=== PATIENT | male | born 1955 | race Caucasian/White ===

== ENCOUNTER 2018-10-16 16:54 | Inpatient (IN) | payer MEDICAID ==
[~2018-10-16] VITALS: Ht 175.3 cm; Wt 109.7 kg
[2018-10-16 17:30] VITALS: BP 102/45
[2018-10-16 18:00] VITALS: BP 91/55
--- NOTE | 2018-10-16 18:50 | NUR ---
USHA STOP TIME 1849
--- NOTE | 2018-10-16 18:59 | NUR ---
ARRIVED ON FLOOR. ORIENTED TO ROOM AND CALL LIGHT. IV INFUSING PER ORDER TO RIGHT HAND. ASSESSMENT AND HISTORY PER FLOW SHEET.
--- NOTE | 2018-10-16 19:17 | NUR ---
PER [facility] ER RECORDS LEVAQUIN GIVEN THERE. DOCUMENTED OUR DOSE NOT GIVEN AND TO START TOMORROW.
[2018-10-16 19:45] VITALS: BP 102/72
[2018-10-16 23:55] VITALS: BP 109/65
[2018-10-17 00:01] VITALS: BP 102/72; BMI 29.6
[2018-10-17 03:45] VITALS: BP 107/66
[2018-10-17 06:11] LABS: ALBUMIN 2.9 g/dL (3.4-5.0); BILIRUBIN - TOTAL 1.83 mg/dL (0.2-1.3); CALCIUM 7.4 mg/dL (8.5-10.1); CARBON DIOXIDE 22.8 mmol/L (21.0-32.0); CREATININE - SERUM 2.8 mg/dL (0.6-1.3); POTASSIUM - SERUM 4.8 mmol/L (3.5-5.1); PROTEIN - SERUM 5.1 g/dL (6.4-8.2)
[2018-10-17 06:16] LABS: HEMATOCRIT 24.3 % (42.0-54.0); HEMOGLOBIN 8.4 g/dL (13.5-17.5); MCH 33.7 pg (26.0-34.0); MCHC 34.6 g/dL (31.0-37.0); MCV 97.6 fL (80.0-100.0); MEAN PLATELET VOLUME 10.1 fL (7.4-10.4); RBC 2.49 10x6/uL (4.20-6.10); RDW 16.2 % (11.5-14.5); WBC 13.5 10x3/uL (4.8-10.8)
[2018-10-17 06:21] LABS: PLATELET COUNT 30 10x3/uL (130-400)
--- NOTE | 2018-10-17 06:45 | NUR ---
DR WYATT PAGED ABOUT CRITICAL PLT
--- NOTE | 2018-10-17 06:48 | NUR ---
SPOKE WTIH DR WYATT AND NEW ORDERS RECEIVED FOR LABS
[2018-10-17 07:45] LABS: LYMPHOCYTES 90 % (15-50); MONOCYTES 4 % (2-11); NEUTROPHILS 5 % (40-80); PLATELET ESTIMATE DECREASED
[2018-10-17 08:01] LABS: INR 1.64 (0.85-1.17); PROTIME 18.9 SECONDS (11.6-15.0)
[2018-10-17 08:02] LABS: APTT 41.7 SECONDS (22.8-39.4)
[2018-10-17 08:42] VITALS: BP 123/73
--- NOTE | 2018-10-17 10:31 | NUR ---
PT RESTING QUIETLY IN BED. EYES CLOSED AND LIGHTS OFF. RESPIRATIONS EVEN AND UNLABORED. NO COMPLAINTS VOICED AT THIS TIME. ONE EPSIODE OF NOSE BLEED THIS AM. DR WYATT NOTIFED, AND MONITORING NEED FOR PLATLETS. CALL LIGHT AND BEDSIDE TABLE IN REACH. BED IN LOWEST POSTION. ROOM FREE OF CLUTTER. NO OTHER NEEDS VOICED AT THIS TIME. WILL CONTINUE TO MONITOR.
[2018-10-17 11:11] LABS: % SATURATION 18 % (15-55); IRON 44 ug/dl (35-150); TOTAL IRON BIND CAPACITY 239 ug/dl (260-445); UNSAT IRON BIND CAPACITY 195 ug/dl (150-375)
[2018-10-17 12:15] LABS: APPEARANCE HAZY (CLEAR); BILIRUBIN NEGATIVE (NEGATIVE); COLOR YELLOW (YELLOW); GLUCOSE NEGATIVE (NEGATIVE); KETONE NEGATIVE (NEGATIVE); NITRITE NEGATIVE (NEGATIVE); PROTEIN NEGATIVE (NEGATIVE); SPECIFIC GRAVITY 1.015 (1.005-1.020); UROBILINOGEN NORMAL (NORMAL)
[2018-10-17 12:17] LABS: BACTERIA MODERATE /hpf (NONE SEEN); EPITHELIAL CELLS RARE /hpf (0-5); MUCUS <1+ /lpf (NONE SEEN); RED CELLS - URINE OCC /hpf (0-5)
--- NOTE | 2018-10-17 13:16 | NUR ---
LYING IN BED,WITHOUT DISTRESS.ISOLATION MAINTAINED
[2018-10-17 13:27] VITALS: BP 99/64
[2018-10-17 14:26] VITALS: BMI 29.5
[2018-10-17 18:36] VITALS: BP 133/68
[2018-10-17 21:12] VITALS: BP 106/66
[2018-10-18 01:43] VITALS: BP 98/59
[2018-10-18 05:02] LABS: BASOPHILS 0 % (0-2); EOSINOPHILS 0 % (0-7); HEMATOCRIT 20.3 % (42.0-54.0); LYMPHOCYTES 95.3 % (15-50); MCH 33.7 pg (26.0-34.0); MCHC 34.5 g/dL (31.0-37.0); MCV 97.6 fL (80.0-100.0); MONOCYTES 1.4 % (2-11); NEUTROPHILS 3.3 % (40-80); RBC 2.08 10x6/uL (4.20-6.10); RDW 15.8 % (11.5-14.5)
[2018-10-18 05:31] VITALS: BP 98/57
[2018-10-18 05:32] LABS: WBC 4.2 10x3/uL (4.8-10.8)
[2018-10-18 05:33] LABS: PLATELET COUNT 24 10x3/uL (130-400)
[2018-10-18 05:48] LABS: ALBUMIN 2.3 g/dL (3.4-5.0); ANION GAP 14.7 mmol/L (8-16); BILIRUBIN - TOTAL 1.4 mg/dL (0.2-1.3); CALCIUM 7.1 mg/dL (8.5-10.1); CARBON DIOXIDE 21.5 mmol/L (21.0-32.0); POTASSIUM - SERUM 4.2 mmol/L (3.5-5.1); PROTEIN - SERUM 4.5 g/dL (6.4-8.2); VANCOMYCIN - RANDOM 5.5 ug/mL (10.0-20.0)
[2018-10-18 05:50] LABS: CREATININE - SERUM 1.5 mg/dL (0.6-1.3)
--- NOTE | 2018-10-18 06:00 | NUR ---
LAB CALLED WITH CRITICAL HGB 7, HCT 20.3, PLT 24. NOTIFIED DR WYATT. ORDERS FOR 2 UNITS PRBC, 1 UNIT OF PLT, AND 500MG TYLENOL PREMED. ORDERED TYPE AND SCREEN. WILL CONT TO MONITOR
[2018-10-18 08:15] LABS: IMMUNOGLOBULIN A 18 mg/dL (61-437); IMMUNOGLOBULIN G 291 mg/dL (700-1600); IMMUNOGLOBULIN M 9 mg/dL (20-172)
[2018-10-18 08:30] VITALS: BP 96/55
[2018-10-18 10:19] LABS: FOLATE (FOLIC ACID) - SERUM 5.2 ng/mL (>3.0)
--- NOTE | 2018-10-18 16:00 | NUR ---
PT RESTING. WATER GIVEN PER REQUEST. AFEBRILE AT THIS TIME.
--- NOTE | 2018-10-18 16:17 | NUR ---
I have reviewed this patient and I concur with the Shift Assessment completed by the Licensed Practical Nurse today this shift.
--- NOTE | 2018-10-18 20:00 | NUR ---
PT LYING IN BED WITHOUT DISTRESS. ALERT AND ORIENTED. SWELLING TO RIGHT WRIST. +1 EDEMA TO RIGHT FOOT AND GENERALIZED TO LEFT FOOT. IV RIGHT HAND WITHOUT REDNESS, DRESSING CDI. PT SIGNED CONSENTS FOR BM BIOPSY IN AM. DENIES OTHER NEEDS AT THIS TIME. CL IN REACH, WILL CONT TO MONITOR
[2018-10-18 21:37] VITALS: BP 108/63
[2018-10-19] VITALS (13 sets, daily range): BP systolic 92–117; BP diastolic 51–69
[2018-10-19 06:36] LABS: BASOPHILS 0 % (0-2); EOSINOPHILS 0 % (0-7); HEMATOCRIT 22.9 % (42.0-54.0); HEMOGLOBIN 8.1 g/dL (13.5-17.5); IMMATURE GRANULOCYTES 0.8 % (0-5); LYMPHOCYTES 95.2 % (15-50); MCH 33.3 pg (26.0-34.0); MCHC 35.4 g/dL (31.0-37.0); MEAN PLATELET VOLUME 10.7 fL (7.4-10.4); MONOCYTES 1.4 % (2-11); NEUTROPHILS 2.6 % (40-80); RBC 2.43 10x6/uL (4.20-6.10); RDW 18.8 % (11.5-14.5)
[2018-10-19 06:47] LABS: APTT 38.8 SECONDS (22.8-39.4)
[2018-10-19 06:54] LABS: INR 1.16 (0.85-1.17); PROTIME 14.3 SECONDS (11.6-15.0)
[2018-10-19 06:57] LABS: ALKALINE PHOSPHATASE 34 U/L (46-116); ALT (SGPT) 23 U/L (10-68); BILIRUBIN - TOTAL 1.75 mg/dL (0.2-1.3); CALC OSMOLALITY 272 mosm/kg (275-300); CALCIUM 7.8 mg/dL (8.5-10.1); CARBON DIOXIDE 24.6 mmol/L (21.0-32.0); CHLORIDE - SERUM 101 mmol/L (98-107); GLUCOSE 113 mg/dL (74-106); POTASSIUM - SERUM 3.8 mmol/L (3.5-5.1); PROTEIN - SERUM 5.1 g/dL (6.4-8.2); SODIUM 133 mmol/L (136-145); UREA NITROGEN 28 mg/dL (7-18); eGFR NON AFRICAN AMERICAN 80 mL/min (90-120)
[2018-10-19 07:14] LABS: MCV 94.2 fL (80.0-100.0)
[2018-10-19 07:15] LABS: PLATELET COUNT 32 10x3/uL (130-400)
[2018-10-19 13:13] LABS: IMMUNOGLOBULIN D <1.34 mg/dL (<14.11)
[2018-10-19 15:12] LABS: BETA-2 MICROGLOBULIN 6.2 mg/L (0.6-2.4)
--- NOTE | 2018-10-19 16:23 | NUR ---
GOT PATIENT ON TABLE FOR MRI OF WRIST. STARTED EXAM AND THE PATIENT STATED HE WANTED TO STOP AND NOT DO THE TEST. PT WAS TAKEN BACK TO HIS ROOM AND HIS NURSE WAS NOTIFIED.
--- NOTE | 2018-10-19 20:11 | NUR ---
RESTING QUIELTY WITH NO DISTRESS NOTED. RESP EVEN AND UNALBORED.IV INFUSING TO RFA WITHOUT REDNESS OR EDEMA NOTED.DRSG TO LEFT SCARAL AREA WITHOUT DRAINAGE NOTED. CL IN REACH
--- NOTE | 2018-10-19 23:31 | NUR ---
I have reviewed this patient and I concur with the Shift Assessment completed by the Licensed Practical Nurse today this shift.
[2018-10-20 05:02] VITALS: BP 115/64
[2018-10-20 05:33] LABS: BASOPHILS 0 % (0-2); EOSINOPHILS 0.2 % (0-7); HEMATOCRIT 22.5 % (42.0-54.0); HEMOGLOBIN 7.7 g/dL (13.5-17.5); IMMATURE GRANULOCYTES 1.5 % (0-5); MCHC 34.2 g/dL (31.0-37.0); MEAN PLATELET VOLUME 10.3 fL (7.4-10.4); MONOCYTES 0.8 % (2-11); NEUTROPHILS 2.5 % (40-80); RBC 2.33 10x6/uL (4.20-6.10); WBC 4.8 10x3/uL (4.8-10.8)
[2018-10-20 05:44] LABS: MCV 96.6 fL (80.0-100.0)
[2018-10-20 05:47] LABS: PLATELET COUNT 31 10x3/uL (130-400)
[2018-10-20 05:55] LABS: ALBUMIN 1.9 g/dL (3.4-5.0); ALKALINE PHOSPHATASE 44 U/L (46-116); ALT (SGPT) 21 U/L (10-68); BILIRUBIN - TOTAL 2.41 mg/dL (0.2-1.3); CALC OSMOLALITY 272 mosm/kg (275-300); CALCIUM 7.7 mg/dL (8.5-10.1); CARBON DIOXIDE 23.3 mmol/L (21.0-32.0); CHLORIDE - SERUM 102 mmol/L (98-107); GLUCOSE 105 mg/dL (74-106); PROTEIN - SERUM 5.2 g/dL (6.4-8.2); SODIUM 134 mmol/L (136-145); UREA NITROGEN 26 mg/dL (7-18); eGFR NON AFRICAN AMERICAN 80 mL/min (90-120)
--- NOTE | 2018-10-20 07:46 | NUR ---
PATIENT IN BED WITH EYES CLOSED RESTING QUIETLY. IV INTACT. NO COMPLAINTS OR SIGNS OF DISTRESS. CALL LIGHT WITHIN REACH.
[2018-10-20 09:30] VITALS: BP 100/64
--- NOTE | 2018-10-20 11:00 | NUR ---
PATIENT REFUSED MRI AT THIS TIME. BACK TO ROOM. BACK TO BED. CALL LIGHT WITHIN REACH.
--- NOTE | 2018-10-20 11:06 | NUR ---
ATTEMPTED MRI AGAIN TODAY. PT WAS PREMEDICATED WITH VALIUM. PT QUIT EXAM AFTER FIRST SEQUENCE. RETURNED TO ROOM AND INFORMED SUSAN HIS RN FOR THE DAY. WE ALSO CALLED DR GAUTHIER OFFICE AND LEFT A MESSAGE FOR HIM WITH SEPTEMBER. EXAM CANCELLED.
--- NOTE | 2018-10-20 11:18 | MORECARE ---
CASE MANAGEMENT DISCHARGE SUMMARY PATIENT: PHIL DICKERSON UNIT: [id number] ADM DATE: 10/16/18 AGE: 63 : 54 SEX: M ROOM/BED: D.2228 AUTHOR: JEWELS ESTRADA PHYSICIAN: REFERRING PHYSICIAN: DOMENICA BRYANT MD DATE OF SERVICE: 10/20/18 Discharge Plan Patient Name: PHIL DICKERSON [facility] [facility] 1955 Planned Disposition: Home Anticipated Discharge Date: Discharge Date: Expected LOS: Initial Reviewer: [email or web address] Initial Review Date: 10/20/2018 Generated: 10/20/18 12:18 pm Patient Name: PHIL DICKERSON Page 42158 at 1118 All edits/amendments must be made on the electronic document DICTATION DATE: 10/20/18 111 BOOT TURNER: JAMI 10/20/18 1118 RPT#: [id number] DC DATE: STATUS: ADM IN [facility] [address] [place] [address] END OF REPORT
--- NOTE | 2018-10-20 11:26 | MORECARE ---
CASE MANAGEMENT DISCHARGE SUMMARY PATIENT: PHIL DICKERSON UNIT: [id number] ADM DATE: 10/16/18 AGE: 63 : 54 SEX: M ROOM/BED: D.2228 AUTHOR: JEWELS ESTRADA PHYSICIAN: REFERRING PHYSICIAN: DOMENICA BRYANT MD DATE OF SERVICE: 10/20/18 Discharge Plan Patient Name: PHIL DICKERSON Facility: [facility]:[place] : 1955 Planned Disposition: Home Anticipated Discharge Date: Discharge Date: Expected LOS: Initial Reviewer: [email or web address] Initial Review Date: 10/20/2018 Generated: 10/20/18 12:26 pm Comments DCP- Discharge Planning Updated by [email or web address]: Iona Moses on 10/20/18 10:[address] Patient Name: PHIL DICKERSON Admission Status: ER Accout number: [id number] Admission Date: 10-16-2018 : 1955 Admission Diagnosis:WEAKNESS Attending: DOMENICA BRYANT Current LOS: 4 Anticipated DC Date: Planned Disposition: Home Primary Insurance: MEDICAID [place] Discharge Planning Comments: CM met with patient to complete initial dc planning assessment. CM educated patient on the CM role and verbal consent given by patient to complete assessment. Patient lives at home alone in a camping trailer, address on face sheet verified. At discharge patient plans to return and feels this is a safe discharge. He states his friend Al and Cintia live on the same property and will check on him and take him home at discharge. CM discussed availability of home health, rehab services, and medical equipment. Patient denied known discharge needs at this time. I encouraged home health and he declines at this time. He also has a son that lives in [place], he states that he does not want to stay with his son. He declines to give me his son's number and states that Cintia can call him if needed. CM will continue to follow and will assist as needed with dc plans/needs. Back Wedger: Iona Moses DCPIA - Discharge Planning Initial Assessment Updated by [email or web address]: Iona Moses on 10/20/18 11:19 am * Is the patient Alert and Oriented? Yes * How many steps to enter\exit or inside your home? 08/12 * PCP Dr. Keagan Wesley * [facility] in [place] * Preadmission Environment Home Alone * ADLs Independent * Equipment Walker * List name and contact numbers for known caregivers / representatives who currently or will assist patient after discharge: Al Jah green - [phone] * Verbal permission to speak to the caregivers and representatives has been obtained from the patient. Yes * Community resources currently utilized None * Additional services required to return to the preadmission environment? Yes * Can the patient safely return to the preadmission environment? Yes * Has this patient been hospitalized within the prior 30 days at any hospital? No Last DP export: 10/20/18 10:18 am Patient Name: PHIL DICKERSON Page 10010 at 1126 All edits/amendments must be made on the electronic document DICTATION DATE: 10/20/181124 LABORATORY TECHNOLOGIST: JAMI 10/20/18 112 RPT#: [id number] DC DATE: STATUS: ADM IN [facility] [address] [place] [address] END OF REPORT
--- NOTE | 2018-10-20 12:32 | NUR ---
NUTRITION F/U CHART REVIEWED, PT VISIT. REPORTS GOOD INTAKE BREAKFAST. READY FOR LUNCH. WILL CONTINUE TO PROVIDE NEUTROPENIC DIET, MONITOR INTAKE. RD FOLLOWING
[2018-10-20 12:45] VITALS: BP 104/63
[2018-10-20 15:24] LABS: HEMATOCRIT 23.1 % (42.0-54.0); HEMOGLOBIN 7.8 g/dL (13.5-17.5)
--- NOTE | 2018-10-20 18:50 | NUR ---
PATIENT IN BED WITH IV INTACT. NO COMPLAINTS OR SIGNS OF DISTRESS. CALL LIGHT WITHIN REACH.
--- NOTE | 2018-10-20 20:01 | NUR ---
LYING QUIELTY WITH NO DISTRESS NOTED. NO COMPLAINTS VOICED.RESP UNLABORED. IV INFUSING TO RFA WIHTOUT REDNESS OR EDEMA NOTED. RLE WITH EDEMA NOTED. O2 @ 2L PER NC ON. CL IN REACH
[2018-10-20 20:02] VITALS: BP 122/57
[2018-10-21] VITALS (8 sets, daily range): BP systolic 98–121; BP diastolic 40–58
--- NOTE | 2018-10-21 00:25 | NUR ---
I have reviewed this patient and I concur with the Shift Assessment completed by the Licensed Practical Nurse today this shift.
[2018-10-21 06:18] LABS: BASOPHILS 0 % (0-2); EOSINOPHILS 0.2 % (0-7); HEMATOCRIT 21.5 % (42.0-54.0); IMMATURE GRANULOCYTES 0.5 % (0-5); MCH 32.9 pg (26.0-34.0); MCV 96.8 fL (80.0-100.0); MEAN PLATELET VOLUME 10.6 fL (7.4-10.4); MONOCYTES 0.7 % (2-11); NEUTROPHILS 2.6 % (40-80); RBC 2.22 10x6/uL (4.20-6.10); RDW 17.9 % (11.5-14.5)
[2018-10-21 06:49] LABS: ALBUMIN 1.7 g/dL (3.4-5.0); ALKALINE PHOSPHATASE 80 U/L (46-116); BILIRUBIN - TOTAL 3.16 mg/dL (0.2-1.3); CALC OSMOLALITY 272 mosm/kg (275-300); CALCIUM 7.2 mg/dL (8.5-10.1); CARBON DIOXIDE 25.8 mmol/L (21.0-32.0); CHLORIDE - SERUM 102 mmol/L (98-107); GLUCOSE 100 mg/dL (74-106); POTASSIUM - SERUM 3.7 mmol/L (3.5-5.1); PROTEIN - SERUM 4.1 g/dL (6.4-8.2); SODIUM 134 mmol/L (136-145); UREA NITROGEN 26 mg/dL (7-18); eGFR NON AFRICAN AMERICAN 80 mL/min (90-120)
[2018-10-21 06:53] LABS: ALT (SGPT) 38 U/L (10-68)
[2018-10-21 07:01] LABS: HEMOGLOBIN 7.3 g/dL (13.5-17.5); PLATELET COUNT 33 10x3/uL (130-400)
--- NOTE | 2018-10-21 09:28 | NUR ---
NOTIFIED DR. WYATT OF H&H 7.3 AND 21. NEW ORDERS RECIEVED. ALSO TAKEN OFF OF NEUTROPENIC PRECAUTIONS PER PHYSICIAN. WBC 6.0
--- NOTE | 2018-10-21 15:00 | NUR ---
NOTIFIED PATIENT BLOOD READY TO INFUSE.
--- NOTE | 2018-10-21 17:25 | NUR ---
PATIENT FIRST UNIT OF BLOOD STARTED AT THIS TIME. VS STABLE. NO COMPLAINTS OR SIGNS OF DISTRESS. DR. CARVALHO WANTS MRI REORDERED WITH PRESS MACHINE OPERATOR MEDS. PATIENT STATED HE STILL DOES NOT WANT THE MRI DONE.
--- NOTE | 2018-10-21 17:40 | NUR ---
PATIENT IN BED WITH IV INTACT. NO COMPLAINTS OR SIGNS OF DISTRESS. BLOOD INFUSING AND VS STABLE. TEMP 99.5. PATIENT STATED HE FEELS FINE. CALL LIGHT WITHIN REACH. WILL CONTINUE TO MONITOR.
[2018-10-22] VITALS: BP 112/59
[2018-10-22 04:00] VITALS: BP 93/45
[2018-10-22 05:52] LABS: BILIRUBIN - DIRECT 2.1 mg/dL (0.00-0.30)
[2018-10-22 05:53] LABS: ALBUMIN 1.5 g/dL (3.4-5.0); ANION GAP 12.8 mmol/L (8-16); BILIRUBIN - TOTAL 3.04 mg/dL (0.2-1.3); CALCIUM 7.3 mg/dL (8.5-10.1); CREATININE - SERUM 1.1 mg/dL (0.6-1.3); POTASSIUM - SERUM 3.8 mmol/L (3.5-5.1); PROTEIN - SERUM 4.6 g/dL (6.4-8.2)
[2018-10-22 05:59] LABS: BASOPHILS 0 % (0-2); EOSINOPHILS 0.1 % (0-7); HEMATOCRIT 23.8 % (42.0-54.0); MCH 31.3 pg (26.0-34.0); MCHC 33.6 g/dL (31.0-37.0); MONOCYTES 4.2 % (2-11); NEUTROPHILS 3.7 % (40-80); PLATELET COUNT 32 10x3/uL (130-400); RBC 2.56 10x6/uL (4.20-6.10); RDW 20.8 % (11.5-14.5); WBC 7.3 10x3/uL (4.8-10.8)
--- NOTE | 2018-10-22 07:30 | NUR ---
PT RESTING EYES CLOSED NO SIGNS OF DISTRESS NOTED, EASY RISE AND FALL OF CHEST WILL CONTINUE TO MONITOR CL IN REACH
[2018-10-22 07:40] LABS: PLATELET ESTIMATE DECREASED; PLATELET MORPHOLOGY NORMAL PLT MORPH
[2018-10-22 09:13] VITALS: BP 128/62
--- NOTE | 2018-10-22 13:58 | NUR ---
I have reviewed this patient and I concur with the Shift Assessment completed by the Licensed Practical Nurse today this shift.
[2018-10-22 14:18] VITALS: BP 119/68
[2018-10-22 17:28] VITALS: BP 123/44
[2018-10-22 19:53] VITALS: BP 113/58
--- NOTE | 2018-10-22 20:01 | NUR ---
UNIT OF PRBCS STARTED, WILL CONTINUE TO MONITOR
[2018-10-23] VITALS: BP 126/49
--- NOTE | 2018-10-23 01:11 | NUR ---
I have reviewed this patient and I concur with the Shift Assessment completed by the Licensed Practical Nurse today this shift.
[2018-10-23 04:00] VITALS: BP 139/64
[2018-10-23 05:45] LABS: BASOPHILS 0 % (0-2); EOSINOPHILS 0.1 % (0-7); HEMATOCRIT 24.7 % (42.0-54.0); HEMOGLOBIN 8.1 g/dL (13.5-17.5); IMMATURE GRANULOCYTES 0.2 % (0-5); LYMPHOCYTES 95.2 % (15-50); MCH 30.7 pg (26.0-34.0); MCHC 32.8 g/dL (31.0-37.0); MCV 93.6 fL (80.0-100.0); MEAN PLATELET VOLUME 10.5 fL (7.4-10.4); NEUTROPHILS 3.5 % (40-80); RBC 2.64 10x6/uL (4.20-6.10); RDW 19.8 % (11.5-14.5); WBC 8.9 10x3/uL (4.8-10.8)
[2018-10-23 05:47] LABS: PLATELET COUNT 35 10x3/uL (130-400)
[2018-10-23 05:50] LABS: ALBUMIN 1.6 g/dL (3.4-5.0); ALKALINE PHOSPHATASE 85 U/L (46-116); BILIRUBIN - TOTAL 2.59 mg/dL (0.2-1.3); CALC OSMOLALITY 274 mosm/kg (275-300); CALCIUM 7.3 mg/dL (8.5-10.1); CARBON DIOXIDE 26.2 mmol/L (21.0-32.0); CHLORIDE - SERUM 103 mmol/L (98-107); GLUCOSE 114 mg/dL (74-106); POTASSIUM - SERUM 3.6 mmol/L (3.5-5.1); PROTEIN - SERUM 4.6 g/dL (6.4-8.2); SODIUM 136 mmol/L (136-145); UREA NITROGEN 19 mg/dL (7-18); eGFR NON AFRICAN AMERICAN 80 mL/min (90-120)
[2018-10-23 05:51] LABS: ALT (SGPT) 34 U/L (10-68)
--- NOTE | 2018-10-23 08:11 | NUR ---
PT RESTING IN BED. NO SIGNS OF DISTRESS. IV TO LEFT UPPER ARM PATENT NO REDNESS OR TENDERNESS. HAS SWELLING TO RIGHT FOOT AND LEG WITH BLISTERS. RIGHT ARM IS SWOLLEN. DENIES ANY FUTHER NEED AT THIS TIME. CALL LIGHT IN REACH. BED LOW POSITION. NO FAMILY AT BEDSIDE AT THIS TIME.
[2018-10-23 08:45] VITALS: BP 156/78
--- NOTE | 2018-10-23 10:25 | NUR ---
EXAM WAS ORDERED AT 1754 ON 10/22 - PT HAD DINNER SO WAS TO BE HELD NPO AFTER MIDNIGHT. I ARRIVED TO DO STUDY ON 10/23/18 AT 0930 - PT NOT NPO /HAD BREAKFAST AND WAS DRINKING COKE. I LEFT NOTE FOR NURSE, PUT NPO SIGN ON DOOR, TOLD PT NOT TO EAT LUNCH OR DINNER OR SNACKS AND I WOULD BE BACK BY 6 PM TO DO. HE SAID HE UNDERSTOOD NPO. GCAYOHANA,RDMS
[2018-10-23 12:23] VITALS: BP 116/85
[2018-10-23 15:36] LABS: APPEARANCE CLEAR (CLEAR); BILIRUBIN NEGATIVE (NEGATIVE); COLOR DK YELLOW (YELLOW); GLUCOSE 50 mg/dL (NEGATIVE); KETONE NEGATIVE (NEGATIVE); NITRITE NEGATIVE (NEGATIVE); PROTEIN TRACE mg/dL (NEGATIVE); SPECIFIC GRAVITY 1.015 (1.005-1.020); UROBILINOGEN NORMAL (NORMAL)
[2018-10-23 15:37] LABS: BACTERIA FEW /hpf (NONE SEEN); EPITHELIAL CELLS 0-5 /hpf (0-5); RED CELLS - URINE 0-5 /hpf (0-5); WHITE CELLS - URINE OCC /hpf (0-5)
--- NOTE | 2018-10-23 17:37 | NUR ---
I have reviewed this patient and I concur with the Shift Assessment completed by the Licensed Practical Nurse today this shift.
[2018-10-23 17:39] VITALS: BP 133/71
--- NOTE | 2018-10-23 19:00 | NUR ---
REPORT RECEIVED AND CARE OF PT ASSUMED. PT LYING IN SUPINE POSITION WITH EYES CLOSED. IV IN LEFT UPPER ARM PATENT WITH NS INFUSING AT 50 ML / HR. BLE RED AND SWOLLEN WITH BLISTERS ON RLE. RUE SWOLLEN AND RED. WILL MONITOR FOR NEEDS.
[2018-10-23 20:00] VITALS: BP 115/47
--- NOTE | 2018-10-23 21:34 | NUR ---
HS MEDICATIONS GIVEN. WILL CONTINUE TO MONITOR FOR NEEDS.
[2018-10-24] VITALS (18 sets, daily range): BP systolic 82–135; BP diastolic 46–99
[2018-10-24 05:17] LABS: BASOPHILS 0 % (0-2); EOSINOPHILS 0.1 % (0-7); HEMATOCRIT 25.3 % (42.0-54.0); HEMOGLOBIN 8.3 g/dL (13.5-17.5); LYMPHOCYTES 93.5 % (15-50); MCH 31.4 pg (26.0-34.0); MCHC 32.8 g/dL (31.0-37.0); MEAN PLATELET VOLUME 9.8 fL (7.4-10.4); MONOCYTES 3.1 % (2-11); NEUTROPHILS 3.3 % (40-80); RBC 2.64 10x6/uL (4.20-6.10); RDW 19.8 % (11.5-14.5); WBC 7.4 10x3/uL (4.8-10.8)
[2018-10-24 05:26] LABS: MCV 95.8 fL (80.0-100.0)
[2018-10-24 05:27] LABS: PLATELET COUNT 47 10x3/uL (130-400)
[2018-10-24 05:29] LABS: ALBUMIN 1.7 g/dL (3.4-5.0); ALKALINE PHOSPHATASE 90 U/L (46-116); ALT (SGPT) 30 U/L (10-68); BILIRUBIN - TOTAL 2.09 mg/dL (0.2-1.3); CALC OSMOLALITY 276 mosm/kg (275-300); CALCIUM 7.6 mg/dL (8.5-10.1); CARBON DIOXIDE 25.9 mmol/L (21.0-32.0); CHLORIDE - SERUM 104 mmol/L (98-107); CREATININE - SERUM 0.9 mg/dL (0.6-1.3); GLUCOSE 111 mg/dL (74-106); POTASSIUM - SERUM 3.8 mmol/L (3.5-5.1); SODIUM 137 mmol/L (136-145); UREA NITROGEN 18 mg/dL (7-18); eGFR NON AFRICAN AMERICAN 90 mL/min (90-120)
[2018-10-24 05:58] LABS: PLATELET ESTIMATE DECREASED
--- NOTE | 2018-10-24 07:40 | NUR ---
PT INCONTINENT OF URINE. PROVIDED MARLENE CARE AT THIS TIME. PT NOTED TO HAVE CLOTTED BLOOD FROM LEFT NARE. ATTEMPTED TO CLEAN AREA, BUT PT SOMEWHAT RESISTIVE. O2 PLACED BACK ON PT AT 2L NC. IV TO LEFT UPPER ARM WITH NS @ 50ML/HR INFUSING VIA PUMP. SITE WITHOUT REDNESS OR EDEMA. DENIES PAIN AT THIS TIME. DENIES FURTHER NEEDS AT THIS TIME. CL WITHIN REACH. ENCOURAGED TO CALL WITH NEEDS. CONTINUE POC
--- NOTE | 2018-10-24 20:13 | NUR ---
REC'D TO 2307 VIA BED, POST CODE. RT BAGGING VIA OETT. ICU MONITORS ESTAB. CM - ST. OPENS EYES, DOES NOT FOLLOW COMMANDS. INCONT OF URINE. MARLENE-CARE DONE AND PADS CHANGED.
--- NOTE | 2018-10-24 20:30 | NUR ---
PCXR DONE. L UPPER ARM PIV OUT - PRESSURE HELD AND DSG APPLIED. NEW 20GA PIV SITED TO R UPPER ARM X 1 STICK. MOODY CATH PLACED PER MD ORDER..MINIMAL MAGI URINE RETURNED.
--- NOTE | 2018-10-24 21:05 | NUR ---
DR. WYATT NOTIFIED OF PT IN ICU POST CODE AFTER QUESTIONABLE SEIZURE ACITIVITY. LABS PENDING, WILL CALL WITH RESULTS.
--- NOTE | 2018-10-24 21:09 | NUR ---
DR. GOMEZ HERE. AGBS RESULTED.
[2018-10-24 21:22] LABS: BASOPHILS 0 % (0-2); EOSINOPHILS 0.2 % (0-7); HEMATOCRIT 26.1 % (42.0-54.0); HEMOGLOBIN 8.3 g/dL (13.5-17.5); LYMPHOCYTES 93.7 % (15-50); MCH 31.6 pg (26.0-34.0); MCHC 31.8 g/dL (31.0-37.0); MEAN PLATELET VOLUME 10.4 fL (7.4-10.4); MONOCYTES 1.1 % (2-11); PLATELET COUNT 51 10x3/uL (130-400); RBC 2.63 10x6/uL (4.20-6.10); RDW 19.7 % (11.5-14.5)
[2018-10-24 21:29] LABS: MCV 99.2 fL (80.0-100.0); WBC 4.6 10x3/uL (4.8-10.8)
[2018-10-24 21:35] LABS: ALBUMIN 1.8 g/dL (3.4-5.0); ANION GAP 12.2 mmol/L (8-16); BILIRUBIN - TOTAL 1.63 mg/dL (0.2-1.3); CALCIUM 7.5 mg/dL (8.5-10.1); CARBON DIOXIDE 25.1 mmol/L (21.0-32.0); POTASSIUM - SERUM 4.3 mmol/L (3.5-5.1); PROTEIN - SERUM 4.9 g/dL (6.4-8.2)
[2018-10-24 21:39] LABS: TROPONIN-I 0.033 ng/mL (0.000-0.060)
--- NOTE | 2018-10-24 21:39 | NUR ---
CODE CALLED AT 1941 FOUND BY R.T. WITH SIZURES AND NO PULSE NO RESP. CPR STATRED ER HERE (1) EPPI AT 1944 (2) EPPI AT 1946 PULSE- 114 B/P 221/108 1955 - FSBS 141 2ED COD BLUE CALLED AT 1948 BAGGING CALLED 1999 100 OF SUCC GIVEN TRANSFERED TO ICU ROOM 2308 PT. AWAKE IN ICU ROOM 2307 1951- PULSE 119, B/P 221/108 1999- 100 MG SUC 2004 B/P 153/[address] P[address] BOCANEGRA AT 2005 ET 7.75 NGT TUB CXR O2 99% TRANSFERD TO ICU ROOM 2308 FLOOR NURSE CALL TO YARON ABREU AT [phone] X 2 MAIL BOX FULL NOT TAKING CALLS CALL AT 2034 TO YARON ABREU [phone], MAIL BOX FULL NOT TAKING CALLS CALL AT 2099 TO YARON ABREU [phone], MAIL BOX FULL NOT TAKING CALLS CALL AT 2133 TO YARON ABREU [phone], MAIL BOX FULL NOT TAKING CALLS BLACK CELL PHONE AND PERSONAL THINGS TAKEN TO ICU.
--- NOTE | 2018-10-24 21:44 | NUR ---
STATUS REPORT CALLED TO DR. SHIN, NEW ABGS, NO URINE OUTPUT, SBP 90S. NEW ORDERS REC'D. RT NOTIFIED FOR VENT RATE TO 20 AND PEEP 8.
[2018-10-24 21:50] LABS: CREATININE - SERUM 1.2 mg/dL (0.6-1.3)
--- NOTE | 2018-10-24 22:36 | NUR ---
DR. WYATT IN TO SEE PT. PT NODDING HEAD APPROP, GRIMMACING, NODS YES TO PAIN. SBP 97. CM - SR WITH PACS. DR. SHIN PAGED PER DR. WYATT REQUEST FOR PAIN MED APPROVAL - NEW ORDERS REC'D.
--- NOTE | 2018-10-24 23:00 | NUR ---
PT RESTING QUIETLY AT THIS TIME. CM - SR WITH PACS. B/P WITHIN PARAMETERS, ALARMS ON.
[2018-10-25] VITALS (24 sets, daily range): BP systolic 89–114; BP diastolic 55–87
--- NOTE | 2018-10-25 01:00 | NUR ---
REPOSITIONED UP IN BED, STARTLES TO TOUCH, WILL PAMELA TO COMMAND WITH ENCOURAGEMENT, NODS HEAD APPROP. BACK TO REST EASILY, VSS.
[2018-10-25 04:20] LABS: BASOPHILS 0.3 % (0-2); EOSINOPHILS 0.3 % (0-7); HEMATOCRIT 22.4 % (42.0-54.0); LYMPHOCYTES 93.5 % (15-50); MCH 31.2 pg (26.0-34.0); MCHC 32.1 g/dL (31.0-37.0); MEAN PLATELET VOLUME 10.8 fL (7.4-10.4); MONOCYTES 0.8 % (2-11); NEUTROPHILS 5.1 % (40-80); PLATELET COUNT 52 10x3/uL (130-400); RBC 2.31 10x6/uL (4.20-6.10); RDW 19.7 % (11.5-14.5); WBC 3.8 10x3/uL (4.8-10.8)
--- NOTE | 2018-10-25 04:20 | NUR ---
PCXR DONE, PT BECAME VERY AGITATED, WHEN ASKED IF HURTING HE WAS ABLE TO CONVEY CHEST HUTRTING - ADMIN PRN MORPHINE PER ORDER.
[2018-10-25 04:24] LABS: HEMOGLOBIN 7.2 g/dL (13.5-17.5)
[2018-10-25 04:37] LABS: ALBUMIN 1.7 g/dL (3.4-5.0); ANION GAP 9.8 mmol/L (8-16); BILIRUBIN - TOTAL 1.4 mg/dL (0.2-1.3); CALCIUM 7.4 mg/dL (8.5-10.1); CARBON DIOXIDE 27.3 mmol/L (21.0-32.0); CREATININE - SERUM 1.3 mg/dL (0.6-1.3); POTASSIUM - SERUM 4.1 mmol/L (3.5-5.1); PROTEIN - SERUM 4.7 g/dL (6.4-8.2)
--- NOTE | 2018-10-25 07:30 | NUR ---
REPORT RECIEVED, SHIFT ASSESSMENT COMPLETE, PT IS SEDATED ON VENT, FOLLOWS COMMANDS, ON 50% FIO2 WITH 95% O2 SAT. ALL PPP, VSS, WILL CON'T TO MONITOR
--- NOTE | 2018-10-25 09:00 | NUR ---
NO FAMILY AT BEDSIDE, REPOSITIONED FOR COMFORT
--- NOTE | 2018-10-25 11:10 | NUR ---
REASSESSMENT COMPLETE, NO CHANGES NOTED, PT RESTING ON THE VENT
--- NOTE | 2018-10-25 13:00 | NUR ---
NO NEEDS NOTED AT THIS TIME, WILL CON'T TO MONITOR
--- NOTE | 2018-10-25 15:00 | NUR ---
REASSESSMENT COMPLETE, NO CHANGES NOTED, WILL CON'T TO MONITOR
--- NOTE | 2018-10-25 17:00 | NUR ---
REPOSITIONED FOR COMFORT, ORAL CARE PROVIDED, NO VISITORS AT THIS TIME
--- NOTE | 2018-10-25 19:30 | NUR ---
REC'D TO CARE, DISTANCE LEARNING TECHNICIAN PER FLOWSHEET. PT SEDATED ON VENT VIA OETT. VSS. NO SIGN OF DISTRESS. IVFS INFUSING TO R UPPER ARM PIV, DSG C/D/I - SEE FLOWSHEET. OPEN EYES AND WILL FOLLOW SIMPLE COMMANDS. SEE SKIN ASSESSMENT. MOODY PATENT. B/L SOFT WRIST RESTRAINTS ON PER MD ORDERS. ALARMS ON.
--- NOTE | 2018-10-25 20:15 | NUR ---
TO CT VIA BED WITH PORTABLE VENT/MONITOR. BACK TO ROOM AT 2029.
--- NOTE | 2018-10-25 20:43 | NUR ---
COMPLETE BATH AND LINEN CHANGE DONE. ORAL CARE DONE. R LEG ELEVATED ON PILLOW. NO SIGN OF DISTRESS.
[2018-10-25 21:04] LABS: BASOPHILS 0.3 % (0-2); EOSINOPHILS 0.3 % (0-7); HEMATOCRIT 21.8 % (42.0-54.0); IMMATURE GRANULOCYTES 0.5 % (0-5); MCH 31.4 pg (26.0-34.0); MCHC 32.1 g/dL (31.0-37.0); MCV 97.8 fL (80.0-100.0); MEAN PLATELET VOLUME 11.1 fL (7.4-10.4); MONOCYTES 1.1 % (2-11); NEUTROPHILS 2.8 % (40-80); RBC 2.23 10x6/uL (4.20-6.10); WBC 3.8 10x3/uL (4.8-10.8)
[2018-10-25 21:27] LABS: PLATELET COUNT 50 10x3/uL (130-400)
--- NOTE | 2018-10-25 21:36 | NUR ---
DR. WYATT NOTIFIED OF CBC RESULTS. NEW ORDER FOR 2 UNITS PRBCS REC'D.
--- NOTE | 2018-10-25 22:18 | NUR ---
NEW 20GA PIV SITED TO L FA X 2 STICKS. GOOD BLOOD RETURN, FLUSHES EASILY.
--- NOTE | 2018-10-25 22:45 | NUR ---
BEGIN UNIT #1 PRBC PER MD ORDER, PER HOSPITAL POLICY - SEE TRANSFUSION SHEET.
--- NOTE | 2018-10-25 23:01 | NUR ---
PRBC INFUSING, NO S/S ADVERSE RXN. REASSESSMENT PER FLOWSHEET. NO ACUTE CHANGES. ALARMS ON.
[2018-10-26] VITALS (24 sets, daily range): BP systolic 90–112; BP diastolic 47–69
--- NOTE | 2018-10-26 01:02 | NUR ---
PT REPOSITIONED UP IN BED WITH PILLOWS, ORAL CARE DONE. VSS. PRBCS INFUSING WITHOUT DIFFICULTY. ALARMS ON.
--- NOTE | 2018-10-26 01:55 | NUR ---
UNIT #1 PRBC COMPLETE, VSS. BEGIN UNIT #2 PRBC PER MD ORDER, PER HOSPITAL PROTOCOL. ALARMS ON.
--- NOTE | 2018-10-26 02:10 | NUR ---
PRBC INFUSING, NO S/S ADVERSE RXN.
--- NOTE | 2018-10-26 03:00 | NUR ---
REASSESSMENT PER FLOWSHEET, NO ACUTE CHANGES. VSS. AWAKENS EASILY, RESISTANT TO ORAL CARE AT TIMES. ROM DONE, HEELS BRIDGED. ALARMS ON.
--- NOTE | 2018-10-26 04:30 | NUR ---
UNIT #2 PRBCS COMPLETE, NO SIGN OF ADVERSE RXN. L DOMINIK PALM.
--- NOTE | 2018-10-26 07:10 | NUR ---
REPORT RECIEVED, SHIFT ASSESSMENT COMPLETE, PT IS SEDATED ON VENT, FOLLOWS COMMANDS, ON 50% FIO2 WITH 97% O2 SAT. ALL PPP, VSS, WILL CON'T TO MONITOR
[2018-10-26 07:28] LABS: BASOPHILS 0 % (0-2); EOSINOPHILS 0.2 % (0-7); IMMATURE GRANULOCYTES 0.4 % (0-5); LYMPHOCYTES 95.4 % (15-50); MCH 31.2 pg (26.0-34.0); MCHC 32.6 g/dL (31.0-37.0); MEAN PLATELET VOLUME 10.9 fL (7.4-10.4); MONOCYTES 0.9 % (2-11); NEUTROPHILS 3.1 % (40-80); PLATELET COUNT 60 10x3/uL (130-400); RDW 19.4 % (11.5-14.5); WBC 4.5 10x3/uL (4.8-10.8)
[2018-10-26 07:32] LABS: HEMATOCRIT 26.4 % (42.0-54.0); HEMOGLOBIN 8.6 g/dL (13.5-17.5); MCV 95.7 fL (80.0-100.0); RBC 2.76 10x6/uL (4.20-6.10)
[2018-10-26 07:40] LABS: ALBUMIN 1.7 g/dL (3.4-5.0); ANION GAP 12.8 mmol/L (8-16); BILIRUBIN - TOTAL 1.51 mg/dL (0.2-1.3); CALCIUM 7.3 mg/dL (8.5-10.1); CARBON DIOXIDE 23.3 mmol/L (21.0-32.0); CREATININE - SERUM 1.8 mg/dL (0.6-1.3); MAGNESIUM - SERUM 2.3 mg/dL (1.8-2.4); PHOSPHOROUS 3.7 mg/dL (2.5-4.9); POTASSIUM - SERUM 4.1 mmol/L (3.5-5.1); PROTEIN - SERUM 4.3 g/dL (6.4-8.2)
--- NOTE | 2018-10-26 08:18 | NUR ---
DR. WYATT AT BEDSIDE, UPDDATE GIVEN
[2018-10-26 08:44] LABS: PLATELET ESTIMATE DECREASED
--- NOTE | 2018-10-26 09:33 | NUR ---
Nutrition follow-up: Pt now intubated, sedated s/p code blue Labs reivwed Wt: 199# Recommend nutrition support start within 24 hours if pt remains intubated. Would begin Pulmocare @ 25 ml/hr with increase to goal rate of 50 ml/hr RDN following.
--- NOTE | 2018-10-26 11:15 | NUR ---
REASSESSMENT COMPLETE, NO CHANGES NOTED, VSS, WILL CON'T TO MONITOR
--- NOTE | 2018-10-26 11:30 | NUR ---
DR. SHIN AT BEDSIDE, UPDATE GIVEN
--- NOTE | 2018-10-26 12:10 | NUR ---
WILDER ORNELAS AT BEDSIDE, PASSWORD OBTAINED, UPDATE GIVEN
--- NOTE | 2018-10-26 13:00 | NUR ---
CONSENT GIVEN OVER PHONE FOR BRONCHOSCOPY BY ANN CLARK WITNESS
--- NOTE | 2018-10-26 13:15 | NUR ---
BRONCH PERFORMED BY DR. SHIN, PT TOLERATED WELL
--- NOTE | 2018-10-26 15:15 | NUR ---
REASSESSMENT COMPLETE, NO CHANGES NOTED, WILL CON'T TO MONITOR
--- NOTE | 2018-10-26 17:00 | NUR ---
REPOSITIONED FOR COMFORT, ORAL CARE PROVIDED, WILL CON'T TO MONITOR
[2018-10-26 19:12] LABS: NEUT - BF 14 %
[2018-10-26 19:13] LABS: EOS BF 1 %; MACROPHAGES BF 53 %; MESOTHELIALS BF 6 %
--- NOTE | 2018-10-26 19:30 | NUR ---
REC'D TO CARE, NETWORK SECURITY ANALYST PER FLOWSHEET. PT SEDATED ON VENT VIA OETT - SEE FLOWSHEETS. IVFS INFUSING TO R ARM PIV, DSG C/D/I - SEE FLOWSHEET. VSS. NO SIGN OF DISTRESS. SEE SKIN ASSESSMENT . TF INFUSING TO OGT - SEE FLOWSHEET. WILL CONT Q2H ORAL CARE AND REPOSITIONING PER PROTOCOL. ALARMS ON.
--- NOTE | 2018-10-26 21:00 | NUR ---
NO VISITORS, REPOSITIONED UP IN BED, NO SIGN OF DISTRESS. ORAL CARE PROVIDED, PT RESISTANT.
--- NOTE | 2018-10-26 23:30 | NUR ---
REASSESSMENT PER FLOWSHEET. TEMP 101.9 - NEW ORDERS REC'D.
[2018-10-27] VITALS (60 sets, daily range): BP systolic 74–118; BP diastolic 44–69
--- NOTE | 2018-10-27 01:00 | NUR ---
REPOSITIONED UP IN BED TO R SIDE, ORAL CARE DONE, ROM DONE AND HEELS BRIDGED.
[2018-10-27 04:35] LABS: BASOPHILS 0 % (0-2); EOSINOPHILS 0 % (0-7); HEMATOCRIT 23.2 % (42.0-54.0); LYMPHOCYTES 96.2 % (15-50); MCH 30.5 pg (26.0-34.0); MCHC 32.3 g/dL (31.0-37.0); MCV 94.3 fL (80.0-100.0); MEAN PLATELET VOLUME 11.3 fL (7.4-10.4); MONOCYTES 1.6 % (2-11); NEUTROPHILS 2.2 % (40-80); PLATELET COUNT 53 10x3/uL (130-400); RBC 2.46 10x6/uL (4.20-6.10); RDW 19.3 % (11.5-14.5); WBC 3.6 10x3/uL (4.8-10.8)
[2018-10-27 04:37] LABS: HEMOGLOBIN 7.5 g/dL (13.5-17.5)
[2018-10-27 04:43] LABS: ALBUMIN 1.5 g/dL (3.4-5.0); ANION GAP 13.1 mmol/L (8-16); BILIRUBIN - TOTAL 2.17 mg/dL (0.2-1.3); CALCIUM 7.4 mg/dL (8.5-10.1); POTASSIUM - SERUM 4.1 mmol/L (3.5-5.1); PROTEIN - SERUM 4.5 g/dL (6.4-8.2)
[2018-10-27 04:50] LABS: CREATININE - SERUM 2.3 mg/dL (0.6-1.3)
--- NOTE | 2018-10-27 05:00 | NUR ---
REPOSITIONED UP IN BED. MOODY CARE DONE PER PROTOCOL. VSS. NO SIGN OF DISTRESS.
--- NOTE | 2018-10-27 07:00 | NUR ---
REPORT RECIEVED, SHIFT ASSESSMENT COMPLETE, PT IS SEDATED ON VENT, FOLLOWS COMMANDS, ALL PPP, VSS, WILL CON'T TO MONITOR
--- NOTE | 2018-10-27 08:23 | NUR ---
Nutrition follow-up: Pt remains intubated, sedated Pulmocare @ 20 ml/hr via OGT labs reviewed Wt: 297# Recommend advancing TF to goal rate of 60 ml/hr RDN following.
--- NOTE | 2018-10-27 09:00 | NUR ---
FAMILY AT BEDSIDE GIVEN UPDATE. NO NEW CHANGES ORAL ENODTRACH CARE ADM. WILL CONTINUE TO MONITOR
--- NOTE | 2018-10-27 11:15 | NUR ---
REASSESSMENT COMPLETE, NO CHANGES NOTED, VSS, WILL CON'T TO MONITOR
--- NOTE | 2018-10-27 12:21 | NUR ---
DR. SHIN AT BEDSIDE, NEW ORDERS RECIEVED, UPDATE GIVEN TO FAMILY
--- NOTE | 2018-10-27 13:15 | NUR ---
REPOSITIONED FOR COMFORT, ORAL CARE GIVEN
--- NOTE | 2018-10-27 15:15 | NUR ---
COMPLETE BATH AND LINEN CHANGE, PT TOLERATED WELL
[2018-10-27 17:08] LABS: ACID FAST SMEAR Negative (()); AFB SPECIMEN PROCESSING Concentration (())
--- NOTE | 2018-10-27 17:28 | NUR ---
DR. FRENCH AT BEDSIDE, UPDATE GIVEN
--- NOTE | 2018-10-27 17:40 | NUR ---
SON JOHNSON AT BEDSIDE GIVEN UPDATE VERBAL CONSENTS OBTAINED FOR CVL A LINE AND BUR HOLE SEE CONSENTS. VERIFIED BY ANN DALAL RN
--- NOTE | 2018-10-27 18:18 | NUR ---
DR CRUZ AT BEDSIDE. CVL ADM PLACEMENT CONFIRMED BY CXR. L RADIAL A LINE ADM BY DR CRUZ UPON 1 ATTEMPT DRSG CDI WITH GOOD WAVEFORM EXTREMITY PINK WITH GOOD SENSATION. NEEDS MET. VSS. WILL CONTINUE TO MONTIOR
--- NOTE | 2018-10-27 19:30 | NUR ---
SHIFT ASSESSMENT COMPLETE, PER NURSING FLOWSHEET, ORAL CARE PROVIDED, PATIENT REPOSITIONED, CONTINUE POC
--- NOTE | 2018-10-27 21:00 | NUR ---
PATIENT REPOSITIONED, ORAL CARE PROVIDED, CONTINUOUSLY MONITORING VS
--- NOTE | 2018-10-27 23:00 | NUR ---
RE-ASSESSMENT COMPLETE, PER NURSING FLOWSHEET, PARTIAL LINEN CHANGE, PATIENT REPOSITIONED, ORAL CARE PROVIDED, PATIENT CONTINUES IS SOFT BUE WRIST RESTRAINTS.
--- NOTE | 2018-10-27 23:20 | NUR ---
OK WITH DR. WYATT TO GIVE 2 UNITS OF PRBC FOR THIS PATIENT
[2018-10-28] VITALS (86 sets, daily range): BP systolic 15–145; BP diastolic 16–76
--- NOTE | 2018-10-28 01:00 | NUR ---
PATIENT REPOSITIONED, ORAL CARE PROVIDED, MOODY CARE PROVIDED, UNIT #1 OF PRBC PREVIOUSLY INITIATED.
--- NOTE | 2018-10-28 03:00 | NUR ---
RE-ASSESSEMENT COMPLETE, PER NURSING FLOWSHEET, PATIENT REPOSITIONED, ORAL CARE PROVIDED, CONTINUE POC
[2018-10-28 04:20] LABS: BASOPHILS 0 % (0-2); EOSINOPHILS 0.1 % (0-7); HEMATOCRIT 25.5 % (42.0-54.0); HEMOGLOBIN 8.2 g/dL (13.5-17.5); LYMPHOCYTES 95.6 % (15-50); MCH 30.5 pg (26.0-34.0); MCHC 32.2 g/dL (31.0-37.0); MCV 94.8 fL (80.0-100.0); MEAN PLATELET VOLUME 10.4 fL (7.4-10.4); MONOCYTES 1.4 % (2-11); NEUTROPHILS 2.9 % (40-80); RBC 2.69 10x6/uL (4.20-6.10); RDW 19.3 % (11.5-14.5)
[2018-10-28 04:24] LABS: PLATELET COUNT 77 10x3/uL (130-400); WBC 7.8 10x3/uL (4.8-10.8)
[2018-10-28 04:27] LABS: PLATELET ESTIMATE DECREASED
[2018-10-28 04:28] LABS: APPEARANCE HAZY (CLEAR); BILIRUBIN NEGATIVE (NEGATIVE); COLOR YELLOW (YELLOW); CREATININE - URINE 78.5 mg/dL (30-125); GLUCOSE NEGATIVE (NEGATIVE); KETONE NEGATIVE (NEGATIVE); NITRITE NEGATIVE (NEGATIVE); POTASSIUM - URINE 36.9 MMOL/L (12.0-62.0); PROTEIN TRACE mg/dL (NEGATIVE); PROTEIN - URINE 111.6 mg/dL (0.0-11.9); SPECIFIC GRAVITY 1.015 (1.005-1.020); UROBILINOGEN NORMAL (NORMAL); WHITE CELLS - URINE RARE /hpf (0-5)
[2018-10-28 04:39] LABS: ALBUMIN 1.4 g/dL (3.4-5.0); ANION GAP 15.8 mmol/L (8-16); BILIRUBIN - TOTAL 1.96 mg/dL (0.2-1.3); CALCIUM 7.3 mg/dL (8.5-10.1); CARBON DIOXIDE 21.7 mmol/L (21.0-32.0); CREATININE - SERUM 2.4 mg/dL (0.6-1.3); MAGNESIUM - SERUM 2.3 mg/dL (1.8-2.4); POTASSIUM - SERUM 4.5 mmol/L (3.5-5.1); PROTEIN - SERUM 4.9 g/dL (6.4-8.2); VANCOMYCIN - RANDOM 18.7 ug/mL (10.0-20.0)
[2018-10-28 04:51] LABS: INR 1.54 (0.85-1.17); PROTIME 17.9 SECONDS (11.6-15.0)
[2018-10-28 04:52] LABS: APTT 37.8 SECONDS (22.8-39.4)
--- NOTE | 2018-10-28 05:00 | NUR ---
PATIENT REPOSITIONED, ORAL CARE PROVIDED, UNIT #2 OF PRBC'S CURRENTLY INFUSING
--- NOTE | 2018-10-28 07:15 | NUR ---
REPORT RECIEVED, SHIFT ASSESSMENT COMPLETE, PT IS SEDATED ON VENT, FOLLOWS COMMANDS, LEFT DARIO, RIGHT IJ CVL, EDEMA NOTED IN ALL EXTREMETIES, ALL PPP, WILL CON'T TO MONITOR
--- NOTE | 2018-10-28 09:00 | NUR ---
FAMILY AT BEDSIDE, UPDATE GIVEN
--- NOTE | 2018-10-28 11:15 | NUR ---
REASSESSMENT COMPLETE, NO CHANGES NOTED, FAMILY AT BEDSIDE, NO OTHER NEEDS NOTED, WILL CON'T TO MONITOR
--- NOTE | 2018-10-28 11:50 | NUR ---
PT TO OR AT THIS TIME VIA BED
--- NOTE | 2018-10-28 12:55 | NUR ---
1130: INSTRUCTED TO BRING PATIENT INTO OPERATING ROOM. PATIENT BROUGHT FROM ICU BY RECOVERY STAFF, OR LINE UP WORKER, AND LENDING MANAGER. 1150: INFORMED THAT SURGEON WILL BE HERE IN 30 MINUTES ALOTTING ENOUGH TIME TO GET PATIENT ONTO SURGERY TABLE AND READY FOR SURGERY. 1250: STILL AWAITING DR. HENRY'S ARRIVAL. HE HAS BEEN NOTIFIED THAT THE PATIENT IS ON OR TABLE AND AWAITING SURGERY.
[2018-10-28 14:11] LABS: FUNGUS STAIN Final report (())
--- NOTE | 2018-10-28 14:35 | NUR ---
PT ARRIVED BACK ON UNIT VIA BED, HOOKED TO MONITORS, DRSG TO HEAD IS CDI, VSS, WILL CON'T TO MONITOR
--- NOTE | 2018-10-28 15:00 | NUR ---
DR. HENRY AT BEDSIDE, UPDATE GIVEN TO FAMILY
--- NOTE | 2018-10-28 17:00 | NUR ---
PT RESTING COMFORTABLY AT THIS TIME, NO NEEDS NOTED, WILL CON'T TO MONITOR
--- NOTE | 2018-10-28 19:30 | NUR ---
SHIFT ASSESSMENT COMPLETE, PER NURSING FLOWSHEET. PATIENT REPOSITIONED, ORAL CARE PROVIDED, NO OTHER NEEDS COMMUNICATED OR NOTED AT THIS TIME
--- NOTE | 2018-10-28 21:00 | NUR ---
PATIENT REPOSITIONED, ORAL CARE PROVIDED, VSS, CONTINUE POC
--- NOTE | 2018-10-28 23:00 | NUR ---
RE-ASSESSMENT COMPLETE, PATIENT REPOSITIONED, ORAL CARE PROVIDED, NO CHANGE SINCE PREVIOUS ASSESSMENT, WILL CONTINUE POC
[2018-10-29] VITALS (44 sets, daily range): BP systolic 93–166; BP diastolic 47–77
--- NOTE | 2018-10-29 01:00 | NUR ---
PATIENT REPOSTIONED, MOODY CARE PROVIDED. PATIENT IN NO APPARENT DISTRESS, VSS, WILL CONTINUE TO MONITOR
--- NOTE | 2018-10-29 03:00 | NUR ---
RE-ASSESSMENT COMPLETE, PER NURSING FLOWSHEET, ORAL CARE PROVIDE, PATIENT REPOSITIONED, INCONTINENCE CHECK, PATIENT REMAINS C/D AT THIS TIME, VSS
[2018-10-29 04:37] LABS: BASOPHILS 0 % (0-2); EOSINOPHILS 0 % (0-7); HEMATOCRIT 26.3 % (42.0-54.0); HEMOGLOBIN 8.5 g/dL (13.5-17.5); MCH 30.7 pg (26.0-34.0); MCHC 32.3 g/dL (31.0-37.0); MCV 94.9 fL (80.0-100.0); MEAN PLATELET VOLUME 10.3 fL (7.4-10.4); MONOCYTES 0.9 % (2-11); NEUTROPHILS 5.1 % (40-80); PLATELET COUNT 76 10x3/uL (130-400); RBC 2.77 10x6/uL (4.20-6.10)
[2018-10-29 04:43] LABS: APTT 34.4 SECONDS (22.8-39.4); INR 1.48 (0.85-1.17); PROTIME 17.3 SECONDS (11.6-15.0); WBC 4.7 10x3/uL (4.8-10.8)
[2018-10-29 04:51] LABS: ALBUMIN 1.4 g/dL (3.4-5.0); ANION GAP 16.4 mmol/L (8-16); BILIRUBIN - TOTAL 1.22 mg/dL (0.2-1.3); CALCIUM 7.6 mg/dL (8.5-10.1); CARBON DIOXIDE 20.7 mmol/L (21.0-32.0); CREATININE - SERUM 2.3 mg/dL (0.6-1.3); MAGNESIUM - SERUM 2.5 mg/dL (1.8-2.4); PHOSPHOROUS 5.1 mg/dL (2.5-4.9); POTASSIUM - SERUM 5.1 mmol/L (3.5-5.1); PROTEIN - SERUM 5.1 g/dL (6.4-8.2)
--- NOTE | 2018-10-29 05:00 | NUR ---
COMPLETE LINEN CHANGE, PATIENT REPOSITIONED, ORAL CARE PROVIDED, VSS, CONTINUE POC
--- NOTE | 2018-10-29 07:00 | NUR ---
REC'D SUPINE, EYES CLOSED, SEDATED ON VENT.
--- NOTE | 2018-10-29 08:00 | NUR ---
ASSESSED- SEE FLOWSHEET, VSS OFF LEVO.
--- NOTE | 2018-10-29 10:00 | NUR ---
REPOSITIONED, NEURO UNCHANGED.
--- NOTE | 2018-10-29 10:30 | NUR ---
COUGHING/ GAGGING EXCESSIVELY REQUIRING AN INCREASE OF PROPOFOL IN 5 MCG/KG/HR Q5 MIN OVER LAST MIN.
--- NOTE | 2018-10-29 11:30 | NUR ---
REASSESSED- CHANGES DOC ON FLOWSHEET.
--- NOTE | 2018-10-29 11:53 | NUR ---
REASSESSED. PROPOFOL TITRATED DOWN TO 20 MCG.
--- NOTE | 2018-10-29 12:20 | NUR ---
DR SHIN IN AND UPDATED. CURRENTLY SBP LOW 90S ON PROPOFOL 2 30MCG, CVP SET-UP= 9, NS STARTED AT 50ML/HR.
[2018-10-29 14:09] LABS: OSMOLALITY - URINE 434 (())
--- NOTE | 2018-10-29 15:00 | NUR ---
BATH/ LINEN CHANGE. COOPERATIVE WITH CARE.
--- NOTE | 2018-10-29 19:30 | NUR ---
SHIFT ASSESSMENT COMPLETE, PER NURSING FLOWSHEET, PATIENT REPOSITIONED, ORAL CARE PROVIDED, NO OTHER NEEDS NOTED AT THIS TIME
--- NOTE | 2018-10-29 21:00 | NUR ---
PATIENT REPOSITIONED, PROPOFOL INCREASED SECONDARY TO PATIENT AGGITATION/TACHYPNEA, WILL CONTINUE TO MONITOR
--- NOTE | 2018-10-29 23:00 | NUR ---
RE-ASSESSMENT COMPLETE, ORAL CARE PROVIDED, PATIENT REPOSITIONED. INCONTINENCE CHECK, PATIENT C/D AT THIS TIME
[2018-10-30] VITALS (24 sets, daily range): BP systolic 99–122; BP diastolic 52–68
--- NOTE | 2018-10-30 01:00 | NUR ---
PATIENT REPOSITIONED, MOODY CARE COMPLETED, PATIENT SUCTIONED FOR COPIUS AMOUNTS OF RESPIRATORY SECRETIONS, CONTINUE POC
--- NOTE | 2018-10-30 03:00 | NUR ---
RE-ASSESSMENT COMPLETE, PATIENT RE-POSITIONED, ORAL CARE PROVIDED, VSS, WILL CONTINUE TO MONITOR
[2018-10-30 04:40] LABS: BASOPHILS 0 % (0-2); EOSINOPHILS 0 % (0-7); HEMATOCRIT 23.2 % (42.0-54.0); LYMPHOCYTES 91.9 % (15-50); MCH 30.5 pg (26.0-34.0); MCHC 32.3 g/dL (31.0-37.0); MCV 94.3 fL (80.0-100.0); MEAN PLATELET VOLUME 11.1 fL (7.4-10.4); MONOCYTES 1.8 % (2-11); NEUTROPHILS 6.3 % (40-80); PLATELET COUNT 82 10x3/uL (130-400); RBC 2.46 10x6/uL (4.20-6.10); RDW 18.9 % (11.5-14.5); WBC 3.9 10x3/uL (4.8-10.8)
[2018-10-30 04:41] LABS: HEMOGLOBIN 7.5 g/dL (13.5-17.5)
[2018-10-30 04:46] LABS: PLATELET ESTIMATE DECREASED
[2018-10-30 04:56] LABS: BILIRUBIN - TOTAL 0.92 mg/dL (0.2-1.3); CALCIUM 7.5 mg/dL (8.5-10.1); CREATININE - SERUM 2.3 mg/dL (0.6-1.3); MAGNESIUM - SERUM 2.6 mg/dL (1.8-2.4); POTASSIUM - SERUM 4.8 mmol/L (3.5-5.1); PROTEIN - SERUM 4.9 g/dL (6.4-8.2)
[2018-10-30 04:58] LABS: ALBUMIN 1.8 g/dL (3.4-5.0); ANION GAP 13.8 mmol/L (8-16)
--- NOTE | 2018-10-30 05:00 | NUR ---
PATIENT REPOSITIONED, ORAL CARE PROVIDED, PATIENT SUCTIONED FOR CONTINUED COPIUS AMOUNTS OF ORAL SECRETIONS
--- NOTE | 2018-10-30 06:00 | NUR ---
TEMP NOTED, TYLENOL GIVEN, WILL RE-ASSESS AND CONTINUE TO MONITOR
--- NOTE | 2018-10-30 07:00 | NUR ---
REC'D LEFT SIDE. VSS.
--- NOTE | 2018-10-30 07:30 | NUR ---
DR CARVALHO NOTIFIED OF PATIENT TEMP, NEW [facility] CULTURE ORDER RECEIVED AND ENTERED
--- NOTE | 2018-10-30 08:02 | NUR ---
FENTANYL GTT STARTED. PROPOFOL DC'D. ASSESSED. REPOSITIONED. FEBRILE-OTHERWISE VSS.
--- NOTE | 2018-10-30 11:00 | NUR ---
REASSESSED W/O CHANGES. REPOSITIONED. TYLENOL @ 1048 FOR TEMP 100.8 AX. FAMILY AT BEDSIDE AND UPDATED. DR KIP FOREMAN.
--- NOTE | 2018-10-30 12:05 | NUR ---
FENTANYL ON HOLD FOR SEDATION VACATION.
--- NOTE | 2018-10-30 12:30 | NUR ---
DR CARVALHO AND DR WYATT ROUND- ORDERS REC'D. LR TO 10 ML/HR.
[2018-10-30 14:05] LABS: APPEARANCE TURBID (CLEAR); BILIRUBIN NEGATIVE (NEGATIVE); COLOR YELLOW (YELLOW); GLUCOSE NEGATIVE (NEGATIVE); KETONE NEGATIVE (NEGATIVE); NITRITE NEGATIVE (NEGATIVE); PROTEIN 1+ mg/dL (NEGATIVE); SPECIFIC GRAVITY 1.015 (1.005-1.020); UROBILINOGEN NORMAL (NORMAL)
[2018-10-30 14:07] LABS: RED CELLS - URINE 0-5 /hpf (0-5); WHITE CELLS - URINE 0-5 /hpf (0-5)
[2018-10-30 14:08] LABS: EPITHELIAL CELLS 0-5 /hpf (0-5)
[2018-10-30 14:09] LABS: BACTERIA FEW /hpf (NONE SEEN)
[2018-10-30 14:10] LABS: AMORPHOUS SEDIMENT >1+ /lpf (NONE SEEN)
--- NOTE | 2018-10-30 14:45 | NUR ---
REASSESSED. ICE PACKS TO ARMPITS/GROIN AND NECK FOR TEMP 100.8.
--- NOTE | 2018-10-30 16:00 | NUR ---
FENTANYL GTT RESUMED FOR COMFORT/ SEDATION.
--- NOTE | 2018-10-30 19:00 | NUR ---
SHIFT ASSESSMENT COMPLETE, PER NURSING FLOWSHEET. PATIENT REPOSITIONED, ORAL CARE PROVIDED, WILL CONTINUE TO MONITOR
--- NOTE | 2018-10-30 21:00 | NUR ---
PATIENT REPOSITIONED, SUCTIONED FOR COPIUS AMOUNTS OF ORAL SECRETIONS, ORAL CARE PROVIDED
--- NOTE | 2018-10-30 23:00 | NUR ---
RE-ASSESSMENT COMPLETE, PER NURSING FLOWSHEET. PATIENT SUCTIONED, ORAL CARE PROVIDED AND REPOSITIONED
[2018-10-31] VITALS (24 sets, daily range): BP systolic 96–131; BP diastolic 47–63
--- NOTE | 2018-10-31 01:00 | NUR ---
PATIENT REPOSITIONED, MOODY CARE PROVIDED, PATIENT FENTANYL INCREASED FOR PATIENT TACHYPNEA, WILL CONTINUE TO MONITOR
--- NOTE | 2018-10-31 03:00 | NUR ---
RE-ASSESSMENT COMPLETE, PER NURSING FLOWSHEET. PATIENT REPOSTIONED, ORAL CARE PROVIDED, WILL CONTINUE TO MONITOR
--- NOTE | 2018-10-31 04:00 | NUR ---
PATIENT FENTANYL INCREASED SECONDARY TO TACHYPNEA, WILL CONTINUE TO MONITOR AND TITRATE ACCORDINGLY
--- NOTE | 2018-10-31 05:00 | NUR ---
PATIENT REPOSITIONED, ROOM TEMP DROPPED, PATIENT UNCOVERED TO HELP FACILIATED COOLING
[2018-10-31 05:18] LABS: HEMATOCRIT 25.1 % (42.0-54.0); HEMOGLOBIN 7.7 g/dL (13.5-17.5); MCH 30.2 pg (26.0-34.0); MCHC 30.7 g/dL (31.0-37.0); MEAN PLATELET VOLUME 10.3 fL (7.4-10.4); PLATELET COUNT 79 10x3/uL (130-400); RBC 2.55 10x6/uL (4.20-6.10); RDW 19.1 % (11.5-14.5); WBC 4.5 10x3/uL (4.8-10.8)
[2018-10-31 05:22] LABS: MCV 98.4 fL (80.0-100.0)
[2018-10-31 05:23] LABS: LYMPHOCYTES 91 % (15-50); MONOCYTES 3 % (2-11); NEUTROPHILS 6 % (40-80)
[2018-10-31 05:24] LABS: PLATELET ESTIMATE DECREASED
[2018-10-31 05:43] LABS: ALBUMIN 1.9 g/dL (3.4-5.0); ANION GAP 15.4 mmol/L (8-16); BILIRUBIN - TOTAL 1.06 mg/dL (0.2-1.3); CALCIUM 7.7 mg/dL (8.5-10.1); CARBON DIOXIDE 23.2 mmol/L (21.0-32.0); CREATININE - SERUM 2.3 mg/dL (0.6-1.3); MAGNESIUM - SERUM 2.3 mg/dL (1.8-2.4); PHOSPHOROUS 5.2 mg/dL (2.5-4.9); POTASSIUM - SERUM 4.6 mmol/L (3.5-5.1); PROTEIN - SERUM 4.7 g/dL (6.4-8.2)
--- NOTE | 2018-10-31 07:00 | NUR ---
SHIFT ASSESSMENT COMPLETED. PT CARE ASSUMED. MONITORS ON AND WORKING, VITALS STABLE, VENT SETTINGS NOTED. PT RESPONDS TO VERBAL STIMULI. SEE FLOW SHEET FOR FURTHER DETAILS. WILL CONTINUE TO OBSERVE.
--- NOTE | 2018-10-31 08:57 | NUR ---
Nutrition follow-up: Pt intubated, sedated Nepro infusing @ 20 ml/hr labs reviewed LR @ 10 ml/hr Pt with increase temperature RDN following.
--- NOTE | 2018-10-31 09:00 | NUR ---
PT TURNED AND REPOSITIONED FOR COMFORT, NO SIGNS/SYMPTOMS OF PAIN OR DISCOMFORT, PT RESPONDS TO VERBAL STIMULI. WILL CONTINUE TO OBSERVE.
--- NOTE | 2018-10-31 11:00 | NUR ---
NO CHNAGES, SEE FLOW SHEET FOR FURTHER DETAILS. MONITORS ON AND WORKING, WILL CONTINUE TO OBSERVE.
--- NOTE | 2018-10-31 13:00 | NUR ---
PT TURNED AND REPOSITIONED, MONITORS ON AND WORKING, VITALS STABLE, ART LINE ZEROED, NO SIGNS/SYMPTOMS OF PAIN OR DISCOMFORT AT THIS TIME, WILL CONTINUE TO OBSERVE.
--- NOTE | 2018-10-31 15:00 | NUR ---
PT TURNED AND REPOSITIONED, ORAL CARE PROVIDED, SEE FLOW SHEET FOR FURTHER DETAILS. WILL CONTINUE TO OBSERVE.
--- NOTE | 2018-10-31 19:00 | NUR ---
REPORT RECEIVED, CARE ASSUMED. INITIAL ASSESSMENT COMPLETED, SEE FLOWSHEET FOR DETAILS. PT IS RESTING IN BED INTUBATED. PT IS CALM AND FOLLOWING COMMANDS. NO NEEDS NOTED AT THIS TIME. NO SIGNS OF ACUTE DISTRESS. WILL CONTINUE TO MONITOR.
--- NOTE | 2018-10-31 21:00 | NUR ---
PT IS RESTING IN BED INTUBATED AT THIS TIME. PT IS CALM AND FOLLOWING COMMANDS. NO SIGNS OF ACUTE DISTRESS. WILL CONTINUE TO MONITOR.
--- NOTE | 2018-10-31 23:00 | NUR ---
REASSESSMENT COMPLETED, SEE FLOWSHEET FOR DETAILS. PT IS RESTING IN BED INTUBATED WITH EYES CLOSED. PT IS CALM AND FOLLOWS COMMANDS. NO SIGNS OF ACUTE DISTRESS NOTED. WILL CONTINUE TO MONITOR.
[2018-11-01] VITALS (24 sets, daily range): BP systolic 105–147; BP diastolic 52–71
--- NOTE | 2018-11-01 01:00 | NUR ---
PT IS RESTING IN BED INTUBATED. PT IS CALM AND RESTING. PT REPOSITIONED FOR COMFORT. NO SIGNS OF ACUTE DISTRESS. WILL CONTINUE TO MONITOR.
--- NOTE | 2018-11-01 03:00 | NUR ---
REASSESSMENT COMPLETED, SEE FLOWSHEET FOR DETAILS. PT IS LAYING IN BED INTUBATED, PT IS CALM AND FOLLOWS COMMANDS. PT REPOSITIONED FOR COMFORT. NO SIGNS OF ACUTE DISTRESS. VSS. WILL CONTINUE TO MONITOR.
[2018-11-01 04:15] LABS: BASOPHILS 0 % (0-2); EOSINOPHILS 0.2 % (0-7); HEMATOCRIT 25.8 % (42.0-54.0); HEMOGLOBIN 8.1 g/dL (13.5-17.5); LYMPHOCYTES 93.8 % (15-50); MCH 30.8 pg (26.0-34.0); MCHC 31.4 g/dL (31.0-37.0); MCV 98.1 fL (80.0-100.0); MEAN PLATELET VOLUME 10.5 fL (7.4-10.4); MONOCYTES 0.2 % (2-11); NEUTROPHILS 5.8 % (40-80); PLATELET COUNT 83 10x3/uL (130-400); RBC 2.63 10x6/uL (4.20-6.10); WBC 4.5 10x3/uL (4.8-10.8)
[2018-11-01 04:35] LABS: ALBUMIN 2.1 g/dL (3.4-5.0); BILIRUBIN - TOTAL 1.14 mg/dL (0.2-1.3); CALCIUM 7.9 mg/dL (8.5-10.1); CARBON DIOXIDE 22.1 mmol/L (21.0-32.0); CREATININE - SERUM 2.4 mg/dL (0.6-1.3); POTASSIUM - SERUM 4.6 mmol/L (3.5-5.1); PROTEIN - SERUM 5.3 g/dL (6.4-8.2)
[2018-11-01 04:51] LABS: ANION GAP 16.5 mmol/L (8-16)
--- NOTE | 2018-11-01 05:00 | NUR ---
PT IS RESTING IN BED INTUBATED, CALM AND WILL FOLLOW COMMANDS. PT REPOSITIONED FOR COMFORT. NO SIGNS OF ACUTE DISTRESS NOTED AT THIS TIME. PT DENIES NEEDS. WILL CONTINUE TO MONITOR.
--- NOTE | 2018-11-01 07:50 | NUR ---
TEMP 102.1. DR FRENCH ROUNDING ON PT AT THIS TIME, NOTIFIED OF ELEVATED TEMP. HE STATED NO NEED TO DO BLOOD CULTURES SINCE WERE ALREADY DONE YESTERDAY. ALSO STATED HE WANTS LASIX TO BE GIVEN EVEN IF CVP IS UNDER 12. PT ON VENT, CALM. FOLLOWS COMMANDS, RT ARM DOES NOT MOVE WHEN ASKED PT TO MOVE IT. ALSO NOTED AT THIS TIME RESTRAINTS REMOVED. PT AGREED TO NOT PULL AT LINES OR TUBES, NOTED PER REPORT THAT PT HAS NOT BEEN ATTEMPTING TO PULL AT LINES. WILL CONTINUE TO CLOSELY OBSERVE.
--- NOTE | 2018-11-01 08:24 | NUR ---
OGT RESIDUAL 5ML, PLACEMENT VERIFIED VIA AUSCULTATION AND ASPIRATION. ALSO AT THIS TIME TUBE FEEDING TUBING CHANGED OUT. NO ACUTE DISTRESS NOTED. WILL CONTINUE PLAN OF CARE.
--- NOTE | 2018-11-01 10:52 | NUR ---
NO ACUTE DISTRESS NOTED. VSS. PT LYING IN BED CALM ON VENT. TURNED Q2H. ORAL CARE PROVIDED Q2H. WILL CONTINUE PLAN OF CARE.
--- NOTE | 2018-11-01 11:09 | NUR ---
TEMP NOTED AT 103.0, ICE PACKS ARE IN PLACE TO BILATERAL ARMPITS AND TO GROIN; 4 TOTAL. PHYSICIAN NOTIFIED. WILL CONTINUE PLAN OF CARE.
--- NOTE | 2018-11-01 11:30 | NUR ---
PER DR SHIN; ABSOLUTELY DO NOT GIVE LASIX IF CVP IS BELOW 12. WILL HOLD LASIX PER DR SHIN ORDERS.
--- NOTE | 2018-11-01 12:00 | NUR ---
SPOKE WITH PTS SON, UPDATES GIVEN. NO ACUTE DISTRESS NOTED. WILL CONTINUE PLAN OF CARE.
--- NOTE | 2018-11-01 13:40 | NUR ---
RECEIVED REPORT. PT ON THE VENT AND ON FENTANYL. RESTING QUIETLY WITH VSS. OGT. WILL CONTINUE TO MONITOR.
--- NOTE | 2018-11-01 15:15 | NUR ---
BLOOD CULTURES DRAWN. ANTIBIOTIC HUNG. PT OPENED EYES AND TRACKED ME. VSS. WILL CONTINUE TO MONITOR.
--- NOTE | 2018-11-01 17:30 | NUR ---
MEDS GIVEN. PT REPOSITIONED AND SUCTIONED. VSS. WILL CONTINUE TO MONITOR.
--- NOTE | 2018-11-01 19:00 | NUR ---
REPORT RECEIVED. RECEIVED PATIENT IN BED SEDATED/INTUBATED. HOB UP 30 DEGREES. 7.5 ETT INTACT/SECURE/PATENT AND CONNECTED TO MECHANICAL VENT WITH SETTINGS ORDERED. VAP PROTOCOL OBSERVED. OGT INTACT/SECURE/PATENT WITH TUBE FEEDING ORDERED PER PUMP. MONITORS CONNECTED TO PATIENT WITH ALARMS SET. VSS. SHIFT ASSESSMENT COMPLETED PER FLOW SHEET. NO ACUTE DISTRESS OBSERVED AT PRESENT.
--- NOTE | 2018-11-01 21:00 | NUR ---
VSS. NO ACUTE DISTRESS OBSERVE. HOB UP 30 DEGREES. ETT/OGT INTACT/PATENT/SECURE
--- NOTE | 2018-11-01 23:00 | NUR ---
REASSESSMENT COMPLETED PER FLOW SHEET WITH NO CHANGES OR ACUTE DISTRESS OBSERVED. VSS.
[2018-11-02] VITALS (29 sets, daily range): BP systolic 95–127; BP diastolic 49–68
--- NOTE | 2018-11-02 01:00 | NUR ---
VSS. NO ACUTE DISTRESS OBSERVED. HOB UP 30 DEGREES. ETT/OGT INTACT/PATENT AND SECURE
--- NOTE | 2018-11-02 03:18 | NUR ---
REASSESSMENT COMPLETED PER FLOW SHEET WITH NO CHANGES OR ACUTE DISTRESS OBSERVED. VSS.
--- NOTE | 2018-11-02 05:01 | NUR ---
VSS. NO ACUTE DISTRESS OBSERVED. ORAL CARE PERFORMED. HOB UP 30 DEGREES
[2018-11-02 06:44] LABS: HEMATOCRIT 23.4 % (42.0-54.0); MCH 30.6 pg (26.0-34.0); MCHC 30.8 g/dL (31.0-37.0); MCV 99.6 fL (80.0-100.0); MEAN PLATELET VOLUME 10.4 fL (7.4-10.4); PLATELET COUNT 96 10x3/uL (130-400); RBC 2.35 10x6/uL (4.20-6.10); RDW 19.1 % (11.5-14.5); WBC 4.2 10x3/uL (4.8-10.8)
[2018-11-02 06:48] LABS: APTT 39.9 SECONDS (22.8-39.4); INR 1.48 (0.85-1.17); PROTIME 17.3 SECONDS (11.6-15.0)
[2018-11-02 06:50] LABS: HEMOGLOBIN 7.2 g/dL (13.5-17.5)
--- NOTE | 2018-11-02 07:05 | NUR ---
SPOKE WITH DR. EDMUNDO HUSTON LOW H&H NEW ORDERS RECEIVED
[2018-11-02 07:18] LABS: ALBUMIN 2.1 g/dL (3.4-5.0); ANION GAP 16.3 mmol/L (8-16); BILIRUBIN - TOTAL 1.03 mg/dL (0.2-1.3); CALCIUM 7.7 mg/dL (8.5-10.1); CREATININE - SERUM 2.6 mg/dL (0.6-1.3); MAGNESIUM - SERUM 2.3 mg/dL (1.8-2.4); PHOSPHOROUS 5.3 mg/dL (2.5-4.9); POTASSIUM - SERUM 4.3 mmol/L (3.5-5.1); PROTEIN - SERUM 5.2 g/dL (6.4-8.2); VANCOMYCIN - RANDOM 13.2 ug/mL (10.0-20.0)
--- NOTE | 2018-11-02 07:30 | NUR ---
REPORT RECEIVED. PT IS ON VENT PER RT SETTINGS. HAS OGT WITH NEPRO VAN GOING AT 20ML/HR. PT HAS A RIGHT IJ. HAS AN ART LINE TO HIS LEFT RADIAL. HAS A CVP OF 7-8. HEAD TO TOE ASSESSMENT PERFORMED. HAS MOODY. DRESSING INTACT TO HEAD. VSS. WILL CONTINUE TO MONITOR.
[2018-11-02 08:37] LABS: HYPOCHROMASIA OCC; LYMPHOCYTES 87 % (15-50); MONOCYTES 1 % (2-11); NEUTROPHILS 11 % (40-80); PLATELET ESTIMATE DECREASED
--- NOTE | 2018-11-02 09:27 | NUR ---
NUTRITION F/U PT REMAINS IN ISOLATION ON VENT. TOLERATING NEPRO AT 20 CC/HR. RECOMMEND INCREASING TUBE FEED RATE MEDICALLY FEASIBLE TO 40 CC/HR. RD FOLLOWING
--- NOTE | 2018-11-02 09:45 | NUR ---
1ST UNIT OF BLOOD INITIATED. TEMP 99.9. WILL CONTINUE TO MONITOR.
--- NOTE | 2018-11-02 11:15 | NUR ---
NEW FEEDING TUBING HUNG. RATE INCREASED TO 25ML/HR. GOAL IS TO REACH 40ML/HR. FLUSH IS 50ML EVERY 2 HRS. VSS.
[2018-11-02 13:12] LABS: FUNGUS STAIN Final report (())
--- NOTE | 2018-11-02 13:30 | NUR ---
2ND UNIT OF BLOOD INITIATED. RUNNING LOW GRADE TEMP OF 100.8 ORALLY. WILL CONTINUE TO MONITOR.
--- NOTE | 2018-11-02 14:33 | NUR ---
CALLED DR MCKEON ABOUT RIGHT ARM PER DR HENRY'S REQUEST.
--- NOTE | 2018-11-02 15:49 | NUR ---
FAMILY UPDATED. 2ND UNIT OF BLOOD DONE INFUSING. WILL CONTINUE TO MONITOR.
[2018-11-02 16:09] LABS: FUNGUS CULTURE RESULT 1 Candida dubliniensis (())
--- NOTE | 2018-11-02 17:30 | NUR ---
PT REPOSITIONED AND SUCTIONED. VSS. WILL CONTINUE TO MONITOR.
[2018-11-02 18:07] LABS: AEROBE ID Final report (())
--- NOTE | 2018-11-02 19:00 | NUR ---
REPORT RECEIVED. RECEIVED PATIENT IN BED, SEDATED /INTUBATED. HOB UP 30 DEGREES. SHIFT ASSESSMENT COMPLETED PER FLOW SHEET WITH NO ACUTE DISTRESS OBSERVED. MONITORS CONNECTED TO PATIENT WITH ALARMS SET. VSS. 7.5 ETT INTACT/SECURE/PATENT AND CONNECTED TO [facility] VENT WITH SETTINGS ORDERED. VAP PROTOCOL OBSERVED. OGT INTACT/SECURE/PATENT WITH TUBE FEEDING INFUSING PER ORDER PER PUMP.
[2018-11-02 19:08] LABS: ACID FAST SMEAR Negative (()); AFB SPECIMEN PROCESSING Concentration (())
--- NOTE | 2018-11-02 23:00 | NUR ---
REASSESSMENT COMPLETED PER FLOW SHEET WITH NO CHANGES OR ACUTE DISTRESS OBSERVED. VSS. HOB UP 30 DEGREES. ETT/OGT INTACT/SECURE/PATENT. IV TUBING CHANGED. ORAL CARE PERFORMED. TURNED AND REPOSITIONED.
[2018-11-03] VITALS (24 sets, daily range): BP systolic 95–128; BP diastolic 47–79
--- NOTE | 2018-11-03 03:00 | NUR ---
REASSESSEMT COMPLETED PER FLOW SHEET WITH NO CHANGES OR ACUTE DISTRESS OBSERVED. VSS. HOB UP 30 DEGREES. ETT/OGT INTACT/ SECURE AND PATENT
--- NOTE | 2018-11-03 05:00 | NUR ---
RESTING WITH EYES CLOSED, EASILY ROUSED AND ALERT. VSS. NO ACUTE DISTRESS OBSERVED
[2018-11-03 05:29] LABS: BASOPHILS 0 % (0-2); EOSINOPHILS 0.2 % (0-7); HEMATOCRIT 26.2 % (42.0-54.0); IMMATURE GRANULOCYTES 1.7 % (0-5); LYMPHOCYTES 90.8 % (15-50); MCH 29.9 pg (26.0-34.0); MCHC 30.5 g/dL (31.0-37.0); MCV 97.8 fL (80.0-100.0); MEAN PLATELET VOLUME 11.3 fL (7.4-10.4); MONOCYTES 0.8 % (2-11); NEUTROPHILS 6.5 % (40-80); PLATELET COUNT 93 10x3/uL (130-400); RBC 2.68 10x6/uL (4.20-6.10); RDW 19.4 % (11.5-14.5); WBC 4.8 10x3/uL (4.8-10.8)
[2018-11-03 05:41] LABS: ALBUMIN 2.1 g/dL (3.4-5.0); ANION GAP 16.6 mmol/L (8-16); BILIRUBIN - TOTAL 1.39 mg/dL (0.2-1.3); CARBON DIOXIDE 21.6 mmol/L (21.0-32.0); CREATININE - SERUM 2.9 mg/dL (0.6-1.3); POTASSIUM - SERUM 4.2 mmol/L (3.5-5.1); PROTEIN - SERUM 5.3 g/dL (6.4-8.2)
--- NOTE | 2018-11-03 07:30 | NUR ---
OPENS EYES TO STIMULATION. SQUEEZED LEFT HAND BUT NOT GRIMACES WHEN TRIED TO GET HIM TO MOVE RIGHT HAND. EXTREMEMLY SWOLLEN IN ALL EXTREMITIES. OG CLAMPED ETT SECURE TO VENT WITH BILATERAL LUNG SOUNDS EQUAL. ABD DISTENDED WITH VERY HYPOACTIVE BOWEL SOUNDS. RIJ INFUSING WITH D51/4NS AT 30 ML HOUR AND FENTANYL AT 175 MCG. PATIENT RESTING WELL NO DISTRESS OR RESP DISTRESS. MOODY CATH PATENT WITH CLOUDY YELLOW URINE IN BAG. NO RESTRAINTS ON, PATIENT NOT MOVING ARMS UP TO ETT. NO DRAINAGE FROM INCISION LEFT SIDE OF HEAD. DRESSING REMOVED. MONITOR SR.
--- NOTE | 2018-11-03 09:30 | NUR ---
NO CHANGE NO DISTRESS. TUBE FEEDING CHANGE TO SUPLENA WITH NEW TUBING 20 ML RESIDUAL NOTED. PLACEMENT CHECKED. RATE INCREASED TO 30 ML HOUR.
--- NOTE | 2018-11-03 09:44 | NUR ---
Nutrition follow-up: TF changed Nepro. Labs reviewed. Pt with high BUN/Cr, PO4. K is normal at this time Pt is not on dialysis at this time RDN changing TF formula to Suplena due to above information. Start Suplena @ 20 ml/hr with gradual increase to goal rate 60 ml/hr. RDN following.
--- NOTE | 2018-11-03 11:30 | NUR ---
DR. CARVALHO HERE ORDERS RECEIVED TO TURN UP FLUSH AND DECREASE IV FLUIDS. PATIENT WITHOUT CHANGE. NO DISTRESS. DOES GRIMACE WITH ORAL CARE AND ANY MOVEMENT OF EXTREMITIES OR WITH TURNING. NUMBEROUS SORES ON NOSE, LIPS AND AROUND NOSE AND LIPS WHEN YOU TRY TO WASH THEY BLEED MORE AND CAUSE PATIENT PAIN. PATIENT CONTINUES TO BE COMFORTABLE ON FENTANYL WHEN NOT MOVED,
--- NOTE | 2018-11-03 12:30 | NUR ---
DR. SHIN AND DR. ENRIQUEZ HERE. NO CHANGE IN PATEINT.
--- NOTE | 2018-11-03 13:30 | NUR ---
COMPLETE BED BATH GIVEN. NO SKIN BREAKDOWN ON COCCYX NOTED. WITH LINEN CHANGE PATEINT TOLERATED FAIR.
--- NOTE | 2018-11-03 14:30 | NUR ---
24 HOUR URINE STARTED. MOODY EMPTIED OUT. MOODY BAG PLACED IN ICE. 24 HOUR BROWN URINE JUG IN PLACE. NOTICE PLACED AT DOOR.
--- NOTE | 2018-11-03 16:30 | NUR ---
NO CHANGES. RESIDUAL LESS THAN 10CC. RATE INCREASED TO 40 ML HOUR OF SUPLENA PER OG.
--- NOTE | 2018-11-03 18:30 | NUR ---
PATIENT RESTING COMFORTABLY NO DISTRESS
--- NOTE | 2018-11-03 19:00 | NUR ---
REPORT RECEIVED. RECEIVED PATIENT IN BED, SEDATED/INTUBATED. ROUSES EASILY TO VERBAL STIMULI AND ALERT. FOLLOWING SIMPLE COMMANDS. SHIFT ASSESSMENT. COMPLETED PER FLOW SHEET WITH NO ACUTE DISTRESS OBSERVED. MONITORS CONNECTED TO PATIENT WITH ALARMS SET. VSS. 7.5 ETT INTACT/SECURE/PATENT AND CONNECTED TO [facility] VENT WITH SETTINGS ORDERED. HOB UP 30 DEGREES. VAP PROTOCOL OBSERVED. OGT INTACT/PATENT/SECURE WITH TUBE FEEDINGS INFUSING PER PUMP. IV TUBING /FLUIDS LABELED/DATED AND CURRENT.
--- NOTE | 2018-11-03 21:00 | NUR ---
RESTING WITH EYES CLOSED, ROUSES EASILY. VSS. NO ACUTE DISTRESS OBSERVED
--- NOTE | 2018-11-03 23:00 | NUR ---
REASSESSMENT COMPLETED PER FLOW SHEET WITH NO CHANGES OR ACUTE DISTRESS OBSERVED AT PRESENT. VSS. ETT/OGT INTACT/SECURE/PATENT. HOB UP 30 DEGREES
[2018-11-04] VITALS (45 sets, daily range): BP systolic 89–141; BP diastolic 50–70
--- NOTE | 2018-11-04 00:05 | NUR ---
A LINE PRESSURE 89/30 LEVOPHED GTT INITIATED @5 MCG/MIN. PRESSURE SUPPORT EFFECTIVE WITH SYSTOLIC BP UP TO 134. WILL TITRATE PER PROTOCOL TO MAINTAIN SBP 90 -140 ORDER
--- NOTE | 2018-11-04 01:00 | NUR ---
RESTING WITH EYES CLOSED, EASILY ROUSED TO VERBAL STIMULI AND ALERT. ABLE TO FOLLOW SIMPLE COMMANDS. VSS. NO ACUTE DISTRESS OBSERVED.
--- NOTE | 2018-11-04 03:00 | NUR ---
REASSESSMENT COMPLETED PER FLOW SHEET WITH NO CHANGES OR ACUTE DISTRESS OBSERVED. VSS. HOB UP 30 DEGREES
[2018-11-04 04:25] LABS: HEMATOCRIT 27.3 % (42.0-54.0); HEMOGLOBIN 8.7 g/dL (13.5-17.5); MCH 31.2 pg (26.0-34.0); MCHC 31.9 g/dL (31.0-37.0); MCV 97.8 fL (80.0-100.0); MEAN PLATELET VOLUME 10.7 fL (7.4-10.4); PLATELET COUNT 101 10x3/uL (130-400); RBC 2.79 10x6/uL (4.20-6.10); RDW 19.1 % (11.5-14.5)
[2018-11-04 04:27] LABS: WBC 7.1 10x3/uL (4.8-10.8)
[2018-11-04 04:34] LABS: ALBUMIN 2.1 g/dL (3.4-5.0); BILIRUBIN - TOTAL 1.24 mg/dL (0.2-1.3); CARBON DIOXIDE 19.1 mmol/L (21.0-32.0); CREATININE - SERUM 3.5 mg/dL (0.6-1.3); POTASSIUM - SERUM 4.1 mmol/L (3.5-5.1); PROTEIN - SERUM 5.5 g/dL (6.4-8.2); VANCOMYCIN - RANDOM 22.2 ug/mL (10.0-20.0)
[2018-11-04 04:57] LABS: LYMPHOCYTES 88 % (15-50); MONOCYTES 2 % (2-11); NEUTROPHILS 10 % (40-80); PLATELET ESTIMATE DECREASED
--- NOTE | 2018-11-04 05:00 | NUR ---
VSS. NO ACUTE DISTRESS OBSERVED
--- NOTE | 2018-11-04 09:08 | NUR ---
Nutrition follow-up: Pt remains intubated OGT with Suplena now @ 40 ml/hr labs reviewed Wt: 289# Suplena to increase to goal rate of 60 ml/hr RDN following.
[2018-11-04 15:28] LABS: PROTEIN - URINE 168.2 mg/dL (0.0-11.9)
--- NOTE | 2018-11-04 19:30 | NUR ---
REC'D PT SEDATED ON VENT VIA 7.5 ETT TAPED @ 24CM LIPLINE, SEE FLOWSHEET FOR VENT SETTINGS, PT AWAKENS TO TACTILE STIMULI BUT DOES NOT FOLLOW COMMANDS, OGT TAPED SECURELY TO ETT, PLACEMENT VERIFIED VIA SM AIR BOLUS AUSCULTATED OVER EPIGASTRIM, GENERALIZED 3-4+ PITTING EDEMA, LEFT RADIAL DARIO WITH FLEXION BOARD IN USE, LEVELED AND ZEROED WITH APPROPRIATE WAVEFORM, RIJTL DRSG CDI WITH FENTANYL @ 3.5CC/HR OR 175MCG/HR AND D51/4 @ 75CC/HR, RIGHT LOWER LEG WITH SKIN PEELING SCABBED AREA AND BRUISES, PPP, NOSTRILS WITH DRIED BLOOD, MULTIPLE SCABBED BLOODY SORES AROUND MOUTH, MOODY PATENT DRAINING MAGI COLORED URINE, BILAT SR UP X 2, VISIBLE TO NURSES STATION.
--- NOTE | 2018-11-04 21:30 | NUR ---
EVENING MEDS GIVEN, NO VISITORS IN AT THIS TIME.
--- NOTE | 2018-11-04 23:00 | NUR ---
REASSESSMENT COMPLETED, PT REPOSITIONED FOR COMFORT, RT AT BS FOR ORAL CARE, WILL MONITOR CLOSELY FOR CHANGES.
[2018-11-05] VITALS (24 sets, daily range): BP systolic 88–141; BP diastolic 36–74
--- NOTE | 2018-11-05 01:00 | NUR ---
PT WITH LEFT HAND UP AGAINST VENT TUBING, DOES NOT APPEAR TO BE REACHING PURPOSEFULLY, ATTEMPTED TO CLEAN FACE, PT PULLING AWAY, BP STABLE, VISIBLE TO NURSES STATION.
--- NOTE | 2018-11-05 03:30 | NUR ---
REASSESSMENT COMPLETED, TEMP 102.0, ROOM TEMP VERY WARM, THERMOSTAT ADJUSTED, EXCESS LINEN REMOVED, ICE PACKS PLACED TO ARM PITS, PT DIAPHORETIC, CM-128, BP STABLE, WILL MONITOR CLOSELY FOR CHANGES.
--- NOTE | 2018-11-05 03:45 | NUR ---
TYLENOL 500 MG GIVEN OGT FOR TEMP OF 102, WILL MONITOR CLOSELY FOR CHANGES
--- NOTE | 2018-11-05 04:00 | NUR ---
RADIOLOGY AT BS FOR AM CXR
--- NOTE | 2018-11-05 04:30 | NUR ---
LEFT RADIAL DARIO DRSG AND RIJ DRSG LOOSE FROM PT BEING DIAPHORETIC, PARTIAL BATH GIVEN AND DRSG TO LEFT RADIAL DARIO CHANGED PER PROTOCOL, RIJ DRSG CHANGED PER PROTOCOL, VSS, WILL CONTINUE TO MONITOR.
--- NOTE | 2018-11-05 05:30 | NUR ---
AM LAB DRAWN FROM CV AND SENT TO LAB, TEMP DOWN TO 101.1, PT RESTING ON VENT EYES CLOSED, RESP 28, CM-ST 118, VSS.
[2018-11-05 06:05] LABS: HEMATOCRIT 25.8 % (42.0-54.0); HEMOGLOBIN 7.8 g/dL (13.5-17.5); MCH 30.1 pg (26.0-34.0); MCHC 30.2 g/dL (31.0-37.0); MCV 99.6 fL (80.0-100.0); MEAN PLATELET VOLUME 11.1 fL (7.4-10.4); PLATELET COUNT 96 10x3/uL (130-400); RBC 2.59 10x6/uL (4.20-6.10); RDW 19.1 % (11.5-14.5); WBC 7.6 10x3/uL (4.8-10.8)
[2018-11-05 06:26] LABS: ANION GAP 18.2 mmol/L (8-16); CALCIUM 7.9 mg/dL (8.5-10.1); CARBON DIOXIDE 17.9 mmol/L (21.0-32.0); CREATININE - SERUM 4.3 mg/dL (0.6-1.3); MAGNESIUM - SERUM 2.2 mg/dL (1.8-2.4); POTASSIUM - SERUM 4.1 mmol/L (3.5-5.1); VANCOMYCIN - RANDOM 17.6 ug/mL (10.0-20.0)
[2018-11-05 07:15] LABS: LYMPHOCYTES 97 % (15-50); MONOCYTES 1 % (2-11); NEUTROPHILS 2 % (40-80); PLATELET ESTIMATE DECREASED
--- NOTE | 2018-11-05 07:49 | NUR ---
TEMP 103.2. RENAL TEAM ASSEMBLER CELESTINA HERE. REPORTED TEMP. ICE PKS APPLIED TO AXILLA AND TEMPID BATH GIVEN.
--- NOTE | 2018-11-05 09:09 | NUR ---
TEMP NOW 101.1 WITH ICE PKS TO BABITA.
--- NOTE | 2018-11-05 11:00 | NUR ---
PT BATHED AND LINENS CHANGED. HEBICLENZ BATH USED. MOUTH CARE AND PT TURNED. TEMP 99.[address] CARVALHO HERE.
--- NOTE | 2018-11-05 14:22 | NUR ---
PT REACHING FOR ETT. RESTRAINTS BUE ORDERED.
[2018-11-05 16:27] LABS: APPEARANCE HAZY (CLEAR); BILIRUBIN NEGATIVE (NEGATIVE); COLOR YELLOW (YELLOW); GLUCOSE NEGATIVE (NEGATIVE); KETONE NEGATIVE (NEGATIVE); NITRITE NEGATIVE (NEGATIVE); PROTEIN 1+ mg/dL (NEGATIVE); SPECIFIC GRAVITY 1.015 (1.005-1.020); UROBILINOGEN NORMAL (NORMAL); WHITE CELLS - URINE OCC /hpf (0-5)
[2018-11-05 16:28] LABS: AMORPHOUS SEDIMENT <1+ /lpf (NONE SEEN); RED CELLS - URINE OCC /hpf (0-5)
--- NOTE | 2018-11-05 19:15 | NUR ---
REPORT REC'D AND CARE ASSUMED, RADIOLOGY AT BS TO OBTAIN CXR AFTER LINE PLACEMENT, DR. SHAH AT DESK WAITING ON RESULT, PT RESTING ON VENT VIA 7.5 ETT TAPED @ 24CM LIPLINE, SEE FLOWSHEET FOR VENT SETTINGS, RIJTL TRIALYSIS CATH NOTED, DRSG CDI, PARTIAL BATH PROVIDED, DRIED BLOOD AND SCABS NOTED AROUND MOUTH AND UNDER NOSE, D51/4 NS INFUSING @ 75CC/HR AND FENTANYL @ 225 MCG/HR, 4+ EDEMA NOTED TO UPPER EXT'S, PT RESISTS NURSE ATTEMPTING TO LIFT RIGHT ARM, IT APPERS PAINFUL TO PT, OGT TAPED SECURELY TO ETT WITH SUPPLENA INFUSING @ 60CC/HR AND 100CC Q1HR FLUSH, LEFT RADIAL DARIO WITH FLEXION BOARD IN USE, MOODY PATENT DRAINING CONCENTRATED URINE, SOFT WRIST RESTRAINTS INTACT, 4+ PITTING EDEMA TO LOWER EXTS , RIGHT ANKLE WITH ABRASION AND PEELING SKIN, HEELS BRIDGED FOR COMFORT, CM-ST, WILL MONITOR CLOSELY FOR CHANGES.
--- NOTE | 2018-11-05 19:32 | NUR ---
DR SHAH PLACED TRIALYSIS CATH RT JUGULAR. CXR DONE. PT PATRICIA WELL.
--- NOTE | 2018-11-05 20:40 | NUR ---
TEMP 101.2, 500MG TYLENOL GIVEN VIA OGT, EVENING MEDS ORDERED, VSS, VISIBLE TO NURSES STATION.
--- NOTE | 2018-11-05 23:15 | NUR ---
REASSESSMENT COMPLETED, CM-UCAF @ 138 NOTED ON MONITOR, BP 127/50, TEMP 100.6, WILL CONTINUE TO MONITOR CLOSELY FOR CHANGES.
[2018-11-06] VITALS (24 sets, daily range): BP systolic 87–123; BP diastolic 48–92
--- NOTE | 2018-11-06 | NUR ---
PT IN AND OUT OF UCAFIB, BP STABLEL WILL CONT TO MONITOR
--- NOTE | 2018-11-06 00:50 | NUR ---
PT IN [facility] AT [phone], DR. CARVALHO CALLED ON CELL PHONE WITH NO ANSWER, VOICE MAIL STATES TO LEAVE MESSAGE OR CALL BACK IN 5-10 MINUTES, WILL RETRY IN 10 MINUTES
--- NOTE | 2018-11-06 01:30 | NUR ---
PT REMAINS IN AFIB RATE 90 AT THIS TIME, BP DECREASED TO 87/49, PT AWAKENED WITH BP RETURNING TO 92/48, WILL MONITOR CLOSELY FOR CHANGES.
--- NOTE | 2018-11-06 01:50 | NUR ---
AMIODARONE GTT (360/200) BEGAN @ 1MG/MIN FOR 6HOURS PER PROTOCOL, WILL MONITOR CLOSELY FOR CHANGES.
--- NOTE | 2018-11-06 03:15 | NUR ---
REASSESSMENT COMPLETED, PT RESTING EYES CLOSED, RESP EVEN AND UNLABORED, BP 90'S, CM-UCAF @ 105.
--- NOTE | 2018-11-06 05:15 | NUR ---
COMPLETE HIBICLENS BATH AND LINEN CHANGE PROVIDED, HAIR WASHED WITH NO RINSE SHAMPOO CAP, HAIR COMBED, SM BROWN STOOL NOTED, PERICARE PROVIDED, PT REPOSITIONED UP IN BED AND ONTO BACK, LEGS ELEVATED ON PILLOWS, TOLERATED WELL, BP 115/62.
[2018-11-06 05:31] LABS: BASOPHILS 0 % (0-2); EOSINOPHILS 0.1 % (0-7); HEMATOCRIT 25.3 % (42.0-54.0); HEMOGLOBIN 7.7 g/dL (13.5-17.5); IMMATURE GRANULOCYTES 0.3 % (0-5); LYMPHOCYTES 94.5 % (15-50); MCHC 30.4 g/dL (31.0-37.0); MCV 98.4 fL (80.0-100.0); MEAN PLATELET VOLUME 11.1 fL (7.4-10.4); MONOCYTES 0.9 % (2-11); NEUTROPHILS 4.2 % (40-80); PLATELET COUNT 98 10x3/uL (130-400); RBC 2.57 10x6/uL (4.20-6.10); RDW 18.8 % (11.5-14.5)
[2018-11-06 06:11] LABS: ALBUMIN 1.9 g/dL (3.4-5.0); ANION GAP 18.4 mmol/L (8-16); BILIRUBIN - TOTAL 0.77 mg/dL (0.2-1.3); CALCIUM 7.8 mg/dL (8.5-10.1); CARBON DIOXIDE 18.1 mmol/L (21.0-32.0); CREATININE - SERUM 4.8 mg/dL (0.6-1.3); MAGNESIUM - SERUM 2.2 mg/dL (1.8-2.4); POTASSIUM - SERUM 4.5 mmol/L (3.5-5.1); PROTEIN - SERUM 5.2 g/dL (6.4-8.2); VANCOMYCIN - RANDOM 20.7 ug/mL (10.0-20.0)
--- NOTE | 2018-11-06 07:31 | NUR ---
AMIODARONE GTT STARTED LAST PM FOR AFIV RVR. PT CONVERTED TO NSR THIS AM. PT TURNED AND MOUTH CARE PROVIDED. VENT SETTINGS PER RT.
--- NOTE | 2018-11-06 10:14 | NUR ---
PT TURNED AND MOUTH CARE COMPLETE. DR CRUZ HERE ON ROUNDS THIS AM. AWAITING HD FOR TODAY.
--- NOTE | 2018-11-06 14:09 | OP ---
PATIENT NAME: PHIL DICKERSON MEDICAL RECORD: [id number] :53 LOCATION:[facility] [id number] ADMISSION DATE:10/16/18 SURGEON: HUSSEIN SHAH MD DATE OF OPERATION: 11/05/2018 PREOPERATIVE DIAGNOSIS: Acute renal failure. POSTOPERATIVE DIAGNOSIS: Acute renal failure. PROCEDURE: Insertion of right internal jugular Trialysis catheter placement (non-tunneled, non-cuffed triple lumen hemodialysis catheter). SURGEON: Hussein Shah MD STAGE BUILDER: None. BLOOD LOSS: Minimal. ANESTHESIA: Local. COMPLICATIONS: None. The risks, possible complications, and alternatives to the procedure were explained. A consent form was signed. OPERATIVE COURSE: The patient was seen in his ICU room. He was positioned in the Trendelenburg position. The right neck was sterilely prepped and draped. I percutaneously accessed the right internal jugular vein, right next to where a central venous line had been placed. A guidewire passed easily. A small skin michele was accomplished. A vessel dilator was used to dilate the subcutaneous tract. A short Trialysis catheter was inserted to the hub. It was sutured in place times 2. All lumens flushed easily and aspirated dark, nonpulsatile blood. A portable x-ray revealed adequate placement of the central venous line without radiographic evidence of complication. The nurses applied a sterile dressing. TRANSINT:[id number] Voice Confirmation ID: [id number] DOCUMENT ID: [id number] HUSSEIN SHAH MD at 1409 CC: [id number] DICTATION DATE: 11/05/182007 BOARD CERTIFIED ARTS THERAPIST: 11/06/18 0205 ADM IN [place] [id number] [place] [address]
--- NOTE | 2018-11-06 15:38 | NUR ---
HD STARTED. 1ST UPRBC'S STARTED ORDERED.
--- NOTE | 2018-11-06 17:07 | NUR ---
2ND U PRBC'S STARTED. HD NURSE UNABLE TO PULL FLUIDS. DR CRUZ NOTIFIED. HD NURSE REC'D ORDERS TO JUST CLEAN.
[2018-11-06 18:06] LABS: AEROBE ID Final report (())
[2018-11-06 18:06] LABS: AEROBE ID Final report (())
--- NOTE | 2018-11-06 19:00 | NUR ---
REPORT RECEIVED, ASSESSMENT COMPLETE SEE FLOW SHEET, PT ON VENT SETTINGS PER ORDERS, PT EYES OPEN AND FOLLOWS NURSE, NO ACUTE DISTRESS NOTED, PT HAS INCREASED DISCOMFORT WHEN RIGHT ARM MOVED, VSS, REPOSITIONED FOR COMFORT, WILL CONTINUE TO MONITOR
--- NOTE | 2018-11-06 23:00 | NUR ---
REASSESSMENT COMPLETE PER FLOW SHEET, NO ACUTE CHANGES FROM PRIOR ASSESSMENT, HEEL PROTECTORS PLACED ON PT, REPOSITIONED IN BED, PT VSS, WILL CONTINUE TO MONITOR
[2018-11-07] VITALS (24 sets, daily range): BP systolic 94–121; BP diastolic 45–67
--- NOTE | 2018-11-07 03:00 | NUR ---
REASSESSMENT COMPLETE SEE FLOW SHEET, BED BATH AND MOODY CARE COMPLETED, REPOSITIONED FOR COMFORT, HOB ELEVATED, VSS, WILL CONTINUE TO MONITOR
--- NOTE | 2018-11-07 06:30 | NUR ---
UNABLE TO GIVE 0600 MEDS D/T MEDS NOT IN PIXIS, WILL NOTIFY PHARMMACY
--- NOTE | 2018-11-07 07:52 | NUR ---
Nutrition follow-up: Pt remains intubated Suplena infusing @ 60 ml/hr Flushes where increased to 100 ml Q 2 hours due to elevated Na, Cl Dialysis has started Wt: 308# RDN will order TF change to Nepro now that dialysis has started Nepro @ 60 ml/hr. Will leave flush order the same due to ordered by physician RDN following.
--- NOTE | 2018-11-07 14:01 | NUR ---
0700 PT RECIEVED SEDATED, ON VENT, ETT SECURED, SCABS TO FACE, R IJ CVL AND TRIALYSIS DRESSING CDI, SEE IV FLOWSHEET, L RADIAL A LINE ZEROED, WRIST PROTECTOR IN PLACE, GOOD WAVEFORM, MOODY DRAINING YELLOW URINE, INCISION WITH BEVERLY TO L HEAD CDI WITH DRAINAGE PRESENT, SEE SHIFT ASSESSMENT 0900, 1100, 1300 REPOSITIONED WITH ORAL CARE DONE
--- NOTE | 2018-11-07 16:53 | NUR ---
1500 PARTIAL LINEN CHANGE EVERY 2 HOUR REPOSITIONING AND LINEN CHANGE DONE
--- NOTE | 2018-11-07 19:22 | NUR ---
AT BEDSIDE, PT AAOx4, VSS, REPORT RECEIVED, INITIAL ASSESSMENT COMPLETE PER FLOW SHEET, 1:1 PSYCH SITTER IN ROOM WITH PT, CUP H2O GIVEN PER REQUEST, NO FURTHER AT THIS TIME, WILL CONTINUE TO MONITOR
--- NOTE | 2018-11-07 20:30 | NUR ---
ASSISTANT PROFESSOR OF ART KRISTI AT BEDSIDE, S
--- NOTE | 2018-11-07 23:22 | NUR ---
DIALYSIS COMPLETED, TANJA RN STATED 1300ML REMOVED, PT VSS, NO ACUTE DISTRESS NOTED
[2018-11-08] VITALS (24 sets, daily range): BP systolic 88–138; BP diastolic 18–71
--- NOTE | 2018-11-08 03:00 | NUR ---
REASSESSMENT COMPLETE SEE FLOW SHEET, NO ACUTE CHANGES OR DISTRESS NOTED, VSS, REPOSITIONED IN BED, EXTREMITIES ELEVATED ON PILLOWS, MOODY AND ORAL CARE COMPLETED, WILL CONTINUE TO MONITOR
--- NOTE | 2018-11-08 07:15 | NUR ---
REPORT RECEIVED. ASSESSMENT COMPLETE PER FLOW SHEET. VSS. NO NEW CHANGES. ORAL ENDOTRACH CARE ADM. WILL CONTINUE TO MONITOR
[2018-11-08 07:20] LABS: HEMOGLOBIN 8.5 g/dL (13.5-17.5); MCH 30.2 pg (26.0-34.0); MCHC 32.7 g/dL (31.0-37.0); MEAN PLATELET VOLUME 10.8 fL (7.4-10.4); RBC 2.81 10x6/uL (4.20-6.10); RDW 17.9 % (11.5-14.5); WBC 13.9 10x3/uL (4.8-10.8)
[2018-11-08 07:22] LABS: MCV 92.5 fL (80.0-100.0)
[2018-11-08 07:23] LABS: PLATELET COUNT 76 10x3/uL (130-400)
[2018-11-08 07:27] LABS: ANION GAP 16.9 mmol/L (8-16); CALCIUM 7.4 mg/dL (8.5-10.1); CARBON DIOXIDE 22.3 mmol/L (21.0-32.0); CREATININE - SERUM 3.7 mg/dL (0.6-1.3); PHOSPHOROUS 6.2 mg/dL (2.5-4.9); POTASSIUM - SERUM 4.2 mmol/L (3.5-5.1); VANCOMYCIN - RANDOM 20.9 ug/mL (10.0-20.0)
--- NOTE | 2018-11-08 08:29 | NUR ---
DR WYATT AT BEDSIDE. GIVEN UDPATE.
[2018-11-08 10:02] LABS: LYMPHOCYTES 70 % (15-50); MONOCYTES 5 % (2-11); NEUTROPHILS 21 % (40-80); PLATELET ESTIMATE DECREASED
[2018-11-08 10:03] LABS: TOXIC GRANULATION OCC
--- NOTE | 2018-11-08 10:16 | NUR ---
LARGE LOOSE BM NOTED COMPLETE BB LINEN CHANGE ADM. HCG BATH ADM. WILL CONTINUE TO MONITOR
--- NOTE | 2018-11-08 11:15 | NUR ---
REASSESSMENT COMPLETE PER FLOW SHEET. VSS. NO NEW CHANGES PT RESTING COMFORTABLY WILL CONTINUE TO MONITOR
--- NOTE | 2018-11-08 11:58 | NUR ---
DR CRUZ AT BEDSIDE. NEW ORDERS RECIEVED.
[2018-11-08 12:09] LABS: FUNGUS CULTURE RESULT 1 Candida dubliniensis (()); FUNGUS MYCOLOGY CULTURE Preliminary report (())
--- NOTE | 2018-11-08 13:05 | NUR ---
DR ROSE AT BEDSIDE GIVEN UDPATE. NO NEW CHANGES WILL CONTINUE TO MONITOR
--- NOTE | 2018-11-08 15:00 | NUR ---
REASSESSMENT COMPLET EPER FLOW SHEET. VSS. NO NEW CHANGES WILL CONTINUE TO MONITOR
--- NOTE | 2018-11-08 16:06 | MORECARE ---
CASE MANAGEMENT DISCHARGE SUMMARY PATIENT: PHIL DICKERSON UNIT: [id number] ADM DATE: 10/16/18 AGE: 63 : 53 SEX: M ROOM/BED: D.2305 AUTHOR: JEWELS ESTRADA PHYSICIAN: REFERRING PHYSICIAN: DOMENICA BRYANT MD DATE OF SERVICE: 11/08/18 Discharge Plan Patient Name: PHIL DICKERSON Facility: [facility]:[place] : 1955 Planned Disposition: Home Anticipated Discharge Date: Discharge Date: Expected LOS: Initial Reviewer: [email or web address] Initial Review Date: 10/20/2018 Generated: 11/08/18 5:06 pm Comments DCP- Discharge Planning Updated by [email or web address]: Lily Moss on 11/08/18 2:[address] CM missed physician today to get physician recertification statement signed. Placed form on front of patients chart and notified nursing. CM will continue to follow and assist as needed with discharge planning / needs. DCP- Discharge Planning Updated by [email or web address]: Iona Moses on 10/20/18 10:[address] Patient Name: PHIL DICKERSON Admission Status: ER Accout number: [id number] Admission Date: 10-16-2018 : 1955 Admission Diagnosis:WEAKNESS Attending: DOMENICA BRYANT Current LOS: 4 Anticipated DC Date: Planned Disposition: Home Primary Insurance: MEDICAID [place] Discharge Planning Comments: CM met with patient to complete initial dc planning assessment. CM educated patient on the CM role and verbal consent given by patient to complete assessment. Patient lives at home alone in a camping trailer, address on face sheet verified. At discharge patient plans to return and feels this is a safe discharge. He states his friend Al and Cintia live on the same property and will check on him and take him home at discharge. CM discussed availability of home health, rehab services, and medical equipment. Patient denied known discharge needs at this time. I encouraged home health and he declines at this time. He also has a son that lives in [place], he states that he does not want to stay with his son. He declines to give me his son's number and states that Cintia can call him if needed. CM will continue to follow and will assist as needed with dc plans/needs. Plate Maker: Ionaivania Moses DCPIA - Discharge Planning Initial Assessment Updated by [email or web address]: Iona Mejíadavid on 10/20/18 11:19 am * Is the patient Alert and Oriented? Yes * How many steps to enter\exit or inside your home? 08/12 * PCP Dr. Keagan Wesley * Pharmacy [facility] in [place] * Preadmission Environment Home Alone * ADLs Independent * Equipment Walker * List name and contact numbers for known caregivers / representatives who currently or will assist patient after discharge: Al and Cintia [facility] - [phone] * Verbal permission to speak to the caregivers and representatives has been obtained from the patient. Yes * Community resources currently utilized None * Additional services required to return to the preadmission environment? Yes * Can the patient safely return to the preadmission environment? Yes * Has this patient been hospitalized within the prior 30 days at any hospital? No Last DP export: 10/20/18 10:26 am Patient Name: PHIL DICKERSON Page [id number] at 1606 All edits/amendments must be made on the electronic document DICTATION DATE: 11/08/181604 STUDENT MINISTRY PASTOR: JAMI 11/08/18 160 [facility]#: [id number] DC DATE: STATUS: ADM IN [facility] [address] [place] [address] END OF REPORT
--- NOTE | 2018-11-08 17:00 | NUR ---
DIALYISIS AT BEDSIDE GIVEN UPDATE
--- NOTE | 2018-11-08 17:30 | NUR ---
COMPLETE BB LINEN CHANGE ADM. LARGE LIQUID BM NOTED. WILL CONTINUE TO MONITOR
--- NOTE | 2018-11-08 20:01 | NUR ---
PT RECEIVED WITH EYES OPEN. DIALYSIS COMPLETED AND CLEANING EQUIPMENT. ASSESSMENT COMPLETED, SEE FLOW SHEET. RESTRAINTS TO BILATERAL ARMS, DUE TO PULLING AT LINES/TUBES. VSS. NO S/S OF DISTRESS. WILL CONTINUE TO OBSERVE.
--- NOTE | 2018-11-08 21:55 | NUR ---
PT CONTINUES VENT WITH SEDATION. VSS. WILL CONTINUE TO OBSERVE.
--- NOTE | 2018-11-08 23:18 | NUR ---
PT INCONTINENT OF BOWEL. MEDIUM BROWN LIQUID STOOL NOTED. PERICARE PROVIDED WITH PADS CHANGED. OPENS EYES TO STIMULI. ASSESSMENT COMPLETED, SEE FLOW SHEET. WILL CONTINUE TO OBSERVE.
[2018-11-09] VITALS (25 sets, daily range): BP systolic 107–159; BP diastolic 51–78
--- NOTE | 2018-11-09 01:26 | NUR ---
CVL DRESSING TO RIGHT IJ CHANGED PER PROTOCOL. PT TOLERATED WELL. WILL CONTINUE TO OBSERVE.
--- NOTE | 2018-11-09 03:49 | NUR ---
PT OPENS EYES SPONTANEOUSLY. CONTINUES VENT WITH FENTYNL. VSS. REASSESSMENT COMPLETED, SEE FLOW SHEET. WILL CONTINUE TO OBSERVE.
[2018-11-09 04:51] LABS: HEMATOCRIT 25.7 % (42.0-54.0); HEMOGLOBIN 8.3 g/dL (13.5-17.5); MCH 29.6 pg (26.0-34.0); MCHC 32.3 g/dL (31.0-37.0); MCV 91.8 fL (80.0-100.0); MEAN PLATELET VOLUME 11.2 fL (7.4-10.4); PLATELET COUNT 75 10x3/uL (130-400); RDW 17.4 % (11.5-14.5); WBC 13.3 10x3/uL (4.8-10.8)
[2018-11-09 05:01] LABS: ANION GAP 13.4 mmol/L (8-16); CALCIUM 7.3 mg/dL (8.5-10.1); CARBON DIOXIDE 24.8 mmol/L (21.0-32.0); CREATININE - SERUM 3.7 mg/dL (0.6-1.3); PHOSPHOROUS 6.5 mg/dL (2.5-4.9); POTASSIUM - SERUM 4.2 mmol/L (3.5-5.1); VANCOMYCIN - RANDOM 16.2 ug/mL (10.0-20.0)
[2018-11-09 05:20] LABS: EOSINOPHILS 1 % (0-7); LYMPHOCYTES 94 % (15-50); NEUTROPHILS 5 % (40-80); PLATELET ESTIMATE DECREASED
--- NOTE | 2018-11-09 06:18 | NUR ---
PT CONTINUES VENT WITH FENTYNL AND OPENS EYES SPONTANEOUSLY. VSS. WILL CONTINUE TO OBSERVE.
--- NOTE | 2018-11-09 07:00 | NUR ---
SHIFT ASSESSMENT COMPLETED. PT CARE ASSUMED. MONITORS ON AND WORKING, VITALS STABLE. VENT SETTINGS NOTED. SEE FLOW SHEET FOR FURTHER DETAILS. WILL CONTINUE TO OBSERVE.
[2018-11-09 08:14] LABS: HEPATITIS C ANTIBODY <0.1 S/CO RAT (0.0-0.9)
--- NOTE | 2018-11-09 09:00 | NUR ---
PT TURNED AND REPOSTIONED FOR COMFORT, PT AWAKE AND ALERT, NO SIGNS/SYMPTOMS OF PAIN OR DISCOMFORT NOTED AT THIS TIME. WILL CONTINUE TO OBSERVE.
--- NOTE | 2018-11-09 09:29 | NUR ---
Nutrition follow-up: Pt remains intubated Nepro infusing @ 60 ml/hr with 100 ml H2O flush Q 2 hours Wt: 304# Labs reviewed' RDN following.
--- NOTE | 2018-11-09 10:21 | NUR ---
UPDATE GIVEN TO SON OVER PHONE, SPOKE AT LENGTH ABOUT POC
--- NOTE | 2018-11-09 11:00 | NUR ---
PT TURNED AND REPOSITIONED FOR COMFORT, SEE FLOW SHEET FOR FURTHER DETAILS. WILL CONTINUE TO OBSERVE.
--- NOTE | 2018-11-09 13:00 | NUR ---
NO CHNAGES, FAMILY AT BEDSIDE UPDATE PROVIDED. NO SIGNS/SYMTPOMS OF PAIN OR DISCOMFORTNOTED, WILL CONTINUE TO OBSERVE.
--- NOTE | 2018-11-09 15:00 | NUR ---
NO CHNAGES, SEE FLOW SHEET FOR FURTHER DETAILS. WILL CONTINUE TO OBSERVE.
--- NOTE | 2018-11-09 17:00 | NUR ---
PT CLEANED FROM LARGE BM, COMPLETE LINEN CHANGE AND BED BATH GIVEN AT THIS TIME, MONITORS ON AND WORKING, VITALS STABLE, WILL CONTINUE TO OBSERVE.
--- NOTE | 2018-11-09 19:00 | NUR ---
PT BECAME HTN AND TACHY, DR CRUZ NOTIFED AND ORDERS REC'D TO RESTART FENTANYL DRIP, ONCOMING NURSE AT BEDSIDE SHIFT REPORT COMPLETED.
--- NOTE | 2018-11-09 19:30 | NUR ---
PT AGITATED, HTN AND TACHYCARDIC, ORDERS TO STOP SEDATION VACATION AND RESTART FENTANYL INFUSION. LUNG SOUNDS CRACKLES/DIMINISHED, ORAL CARE PROVIDED, BLOODY SECRETIONS SUCTIONED. S1S2 HEARD, PERIPHERAL PULSES PRESENT. BOWEL SOUNDS ACTIVE IN ALL QUADRANTS. MOODY CATH INTACT. LT SIDE OF HEAD WITH BEVERLY INTACT, OPEN TO AIR, NO OOZING OR DRAINAGE PRESENT. PT REPOSITIONED WITH PROMINENCES BRIDGED, PARTIAL LINEN CHANGE COMPLETE. BILATERAL WRIST RESTRAINTS IN PLACE. ROOM VISIBLE FROM NURSES STATION. CPOC.
--- NOTE | 2018-11-09 20:30 | NUR ---
OGT PLACEMENT VERIFIED VIA ASCULTATION. RESIDUAL 10MLS. HS MEDS GIVEN WITHOUT DIFFICULTY. PT REPOSITIONED WITH PROMINENCES BRIDGED. VSS. ROOM VISIBLE FROM NURSES STATION. CPOC.
--- NOTE | 2018-11-09 23:30 | NUR ---
REASSESSMENT COMPLETE, PT CALM/COOPERATIVE WITH SEDATION INFUSING. PT REPOSITIONED WITH PROMINENCES BRIDGED. ORAL CARE PROVIDED. VSS, NO S/S OF ACUTE DISTRESS. ROOM VISIBLE FROM NURSES STATION. CPOC.
[2018-11-10] VITALS (24 sets, daily range): BP systolic 105–156; BP diastolic 52–73
--- NOTE | 2018-11-10 01:30 | NUR ---
PT REPOSITIONED WITH PROMINENCES BRIDGED, ORAL CARE PROVIDED. VSS, NO S/S OF ACUTE DISTRESS. ROOM VISIBLE FROM NURSES STATION. CPOC.
--- NOTE | 2018-11-10 03:30 | NUR ---
REASSESSMENT COMPLETE, NO NEW CHANGES AT THIS TIME. REPOSITIONED WITH PROMINENCES BRIDGED. ORAL CARE PROVIDED. LINEN CHANGE COMPELTE. VSS, ROOM VISIBLE FROM NURSES STATION. CPOC.
[2018-11-10 04:56] LABS: BASOPHILS 0.1 % (0-2); EOSINOPHILS 0 % (0-7); HEMATOCRIT 25.9 % (42.0-54.0); HEMOGLOBIN 8.4 g/dL (13.5-17.5); IMMATURE GRANULOCYTES 0.1 % (0-5); LYMPHOCYTES 94.2 % (15-50); MCH 29.8 pg (26.0-34.0); MCHC 32.4 g/dL (31.0-37.0); MCV 91.8 fL (80.0-100.0); MEAN PLATELET VOLUME 10.7 fL (7.4-10.4); MONOCYTES 0.9 % (2-11); NEUTROPHILS 4.7 % (40-80); PLATELET COUNT 83 10x3/uL (130-400); RBC 2.82 10x6/uL (4.20-6.10); RDW 16.9 % (11.5-14.5)
[2018-11-10 04:57] LABS: WBC 19.8 10x3/uL (4.8-10.8)
[2018-11-10 05:12] LABS: ANION GAP 16.1 mmol/L (8-16); CARBON DIOXIDE 23.9 mmol/L (21.0-32.0); CREATININE - SERUM 3.4 mg/dL (0.6-1.3); PHOSPHOROUS 6.2 mg/dL (2.5-4.9)
--- NOTE | 2018-11-10 05:57 | NUR ---
PT REPOSITIONED WITH PROMINENCES BRIDGED. ORAL CARE PROVIDED. VSS, CPOC.
--- NOTE | 2018-11-10 07:15 | NUR ---
REPORT RECEIVED. ASSESSMENT COMPLETE PER FLOW SHEET. VSS. NO NEW CHANGES PT RESTING COMFORTALBY WILL CONTINUE TO MONITOR
--- NOTE | 2018-11-10 08:20 | NUR ---
DR CRUZ AT BEDSIDE NEW ORDERS RECIEVED. WILL ADM
--- NOTE | 2018-11-10 09:20 | NUR ---
NEHEMIAHG BATH ADM.
--- NOTE | 2018-11-10 09:45 | NUR ---
WITHIN THE LAST HOUR DR. CRUZ SWITCHED PATIENT TO SPONT SETTING ON VENTILATOR FOR CPAP TRAIL.
--- NOTE | 2018-11-10 11:15 | NUR ---
REASSESSMENT COMPLETE PER FLOW SHEET. VSS. NO NEW CHANGES WILL CONTNIUE TO MONITOR
--- NOTE | 2018-11-10 12:10 | NUR ---
JOHNSON DALTON PAGED GIVEN UPDATE. DO NOT INTUBATE ORDER RECIEVED.
--- NOTE | 2018-11-10 12:21 | NUR ---
PT EXTUBATED WITHOUT DIFFICULTY. VSS. O2 VIA BIPAP 40% NO S/S DISTRESS
--- NOTE | 2018-11-10 15:10 | NUR ---
PT TO 3L NC AT THIS TIME. TOLERATING WELL
--- NOTE | 2018-11-10 15:30 | NUR ---
REASSESSMENT COMPLETE, PT ON 3L NC WITH 95% O2 SAT. ALL PPP, VSS, WILL CON'T TO MONITOR
--- NOTE | 2018-11-10 17:20 | NUR ---
REPOSITIONED FOR COMOFORT. DENIES FURTHER NEEDS. VSS WILL CONTINUE TOMONITOR
[2018-11-10 18:07] LABS: HSV 1 DNA (PCR) Positive (Negative); HSV 2 DNA (PCR) Negative (Negative)
--- NOTE | 2018-11-10 19:00 | NUR ---
REPORT RECEIVED. RECEIVED PATIENT IN BED. AWAKE AND ALERT. ORIENTED X 4. SPEECH CLEAR AND APPROPRIATE. COMMUNICATIVE. DENIES THOUGHTS OF HARMING HIMSELF AT THIS TIME. SUICIDE PRECAUTIONS WITH 1:1 SUPERVISION OBSERVED. SHIFT ASSESSMENT COMPLETED PER FLOW SHEET. VSS. NO ACUTE DISTRESS OBSERVED. STAFF AT BEDSIDE
--- NOTE | 2018-11-10 19:00 | NUR ---
REPORT RECEIVED. RECEIVED PATIENT IN BED, AWAKE AND ALERT. NONVERBAL, NODS HEAD IN RESPONSE TO QUESTIONS. ABLE TO FOLLOW COMMANDS. SHIFT ASSESSMENT COMPLETED PER FLOW SHEET WITH NO ACUTE DISTRESS OBSERVED. MONITORS CONNECTED TO PT WITH ALARMS SET. VSS.
--- NOTE | 2018-11-10 21:00 | NUR ---
PO MEDS TAKEN WITHOUT DIFF. DENIES ANY AUDITORY/VISUAL HALLUCINATIONS/ PROGRESSING ETOH WITHDRAWAL SYMPTOMS.
--- NOTE | 2018-11-10 21:00 | NUR ---
AWAKE AND ALERT. VSS. NO ACUTE DISTRESS OBSERVED
--- NOTE | 2018-11-10 22:05 | NUR ---
SPOKE WITH EDUARD PRIETO FOR DIET AND ORDER CLARIFICATION. STATES IT IS OK TO ADMIN CORDARONE PO AT THIS TIME. NEW ORDER RECEIVED.
--- NOTE | 2018-11-10 23:00 | NUR ---
REASSESSMENT COMPLETED PER FLOW SHEET WITH NO CHANGES OR ACUTE DISTRESS OBSERVED.
[2018-11-11] VITALS (25 sets, daily range): BP systolic 124–164; BP diastolic 59–111
--- NOTE | 2018-11-11 01:00 | NUR ---
REPOSITIONED. PATRICIA WITHOUT DIFF. VSS. NO ACUTE DISTRESS OBSERVED
--- NOTE | 2018-11-11 01:00 | NUR ---
RESTING WITH EYES CLOSED. EASILY ROUSED AND ALERT. VSS. NO ACUTE DISTRESS OBSERVED.
--- NOTE | 2018-11-11 03:00 | NUR ---
REASSESSMENT COMPLETED PER FLOW SHEET WITH NO CHANGES OR ACUTE DISTRESS OBSERVED. VSS
--- NOTE | 2018-11-11 05:00 | NUR ---
RESTING WITH EYES CLOSED, ROUSES EASILY AND ALERT. CHG BATH GIVEN WITH COMPLETE LINEN CHANGE. POSITIONED FOR COMFORT. VSS. NO ACUTE DISTRESS OBSERVED
[2018-11-11 05:06] LABS: HEMATOCRIT 24.8 % (42.0-54.0); HEMOGLOBIN 8.2 g/dL (13.5-17.5); MCH 29.9 pg (26.0-34.0); MCHC 33.1 g/dL (31.0-37.0); MCV 90.5 fL (80.0-100.0); MEAN PLATELET VOLUME 10.8 fL (7.4-10.4); PLATELET COUNT 91 10x3/uL (130-400); RBC 2.74 10x6/uL (4.20-6.10); RDW 16.7 % (11.5-14.5); WBC 21.4 10x3/uL (4.8-10.8)
[2018-11-11 05:19] LABS: ANION GAP 14.9 mmol/L (8-16); CALCIUM 7.4 mg/dL (8.5-10.1); CARBON DIOXIDE 24.8 mmol/L (21.0-32.0); POTASSIUM - SERUM 3.7 mmol/L (3.5-5.1)
[2018-11-11 05:21] LABS: PHOSPHOROUS 8.4 mg/dL (2.5-4.9)
[2018-11-11 05:27] LABS: LYMPHOCYTES 93 % (15-50); NEUTROPHILS 7 % (40-80); SMUDGE CELLS 1+
[2018-11-11 05:28] LABS: HYPOCHROMASIA 2+; PLATELET ESTIMATE DECREASED
--- NOTE | 2018-11-11 06:56 | NUR ---
REPORT RECEIVED. ASSESSMENT COMPLETE PER FLOW SHEET. VSS REFER FOR FINDINGS. PT RESTING COMFORTABLY WILL CONTINUE TO MONITOR
--- NOTE | 2018-11-11 08:50 | NUR ---
DR CRUZ AT BEDSIDE NEW ORDERS RECEIVED.
--- NOTE | 2018-11-11 09:49 | NUR ---
NUTRITION F/U PT EXTUBATED, AWAITING SWALLOW EVAL. WILL PROVIDE DIET WHEN ORDERED. MONITOR PO INTAKE. RD FOLLOWING
--- NOTE | 2018-11-11 10:20 | NUR ---
L RADIAL A LINE REMOVED CATH INTACT NO NEW CHANGES WILL CONTINUE TO MONITOR
--- NOTE | 2018-11-11 11:10 | NUR ---
REASSESSMENT COMPLETE PER FLOW SHEET. VSS. NO NEW CHANGES WILL CONTINUE TO MONTIOR
--- NOTE | 2018-11-11 13:15 | NUR ---
DR CRUZ AT BEDSIDE. GIVEN UPDATE NO NEW CHANGES WILL CONTINUE TO MONITOR
--- NOTE | 2018-11-11 15:10 | NUR ---
REASSESSMENT COMPLETE PRE FLOW SHEET. VSS. NO NEW CHANGES. RESTING COMFORTABLY WILL CONTINUE TO MONITOR
--- NOTE | 2018-11-11 17:00 | NUR ---
DIALYSIS AT BEDSIDE GIVEN UPDATE.
--- NOTE | 2018-11-11 19:10 | NUR ---
SHIFT ASSESSMENT COMPLETED SEE FLOWSHEET PATIENT APHASIC AT THIS TIME UNABLE TO ANSWER ORIENTATION QUESTIONS BUT FOLLOWS COMMANDS ON 3L NC AT THIS TIME SAT 94% SEE FLOWSHEET FOR FULL ASSESSMENT
--- NOTE | 2018-11-11 21:10 | NUR ---
PT RESTING COMFORTABLY, 2L NC DENIES NEEDS
--- NOTE | 2018-11-11 23:15 | NUR ---
REASSESSMENT COMPLETED SEE FLOWSHEET
[2018-11-12] VITALS (24 sets, daily range): BP systolic 124–169; BP diastolic 72–107
--- NOTE | 2018-11-12 02:20 | NUR ---
PATIENT ON BIPAP - NO ACUTE DISTRESS VSS CPOC
[2018-11-12 05:22] LABS: BASOPHILS 0.1 % (0-2); EOSINOPHILS 0.1 % (0-7); HEMATOCRIT 25.8 % (42.0-54.0); HEMOGLOBIN 8.5 g/dL (13.5-17.5); IMMATURE GRANULOCYTES 0.1 % (0-5); LYMPHOCYTES 93.4 % (15-50); MCHC 32.9 g/dL (31.0-37.0); MCV 91.2 fL (80.0-100.0); MEAN PLATELET VOLUME 10.4 fL (7.4-10.4); MONOCYTES 0.8 % (2-11); NEUTROPHILS 5.5 % (40-80); PLATELET COUNT 95 10x3/uL (130-400); RBC 2.83 10x6/uL (4.20-6.10); RDW 16.2 % (11.5-14.5); WBC 18.2 10x3/uL (4.8-10.8)
[2018-11-12 05:38] LABS: ANION GAP 13.4 mmol/L (8-16); CALCIUM 7.6 mg/dL (8.5-10.1); CARBON DIOXIDE 26.9 mmol/L (21.0-32.0); PHOSPHOROUS 6.7 mg/dL (2.5-4.9); POTASSIUM - SERUM 3.3 mmol/L (3.5-5.1)
[2018-11-12 05:39] LABS: CREATININE - SERUM 2.9 mg/dL (0.6-1.3)
--- NOTE | 2018-11-12 08:03 | NUR ---
PT TAKEN OFF OF BIPAP. FACE CLEANED WITH COOL CLOTH. MOUTH CARE DONE. ENCOURAGED TO COUGH AND DEEP BREATH.
--- NOTE | 2018-11-12 09:37 | NUR ---
SON AT BS. PT TAKING A FEW SIPS WITH HIS PO MEDS.
--- NOTE | 2018-11-12 13:05 | NUR ---
DR REECE HERE ON ROUNDS. PT HERE. ST CALLED AND NOTIFIED OF CONSULT.
--- NOTE | 2018-11-12 14:54 | NUR ---
BATH AND LINENS CHANGED. PT INC OF SM AMT STOOL.
--- NOTE | 2018-11-12 15:46 | NUR ---
ST HERE AND DID EVAL. RECOMENDATIONS REC'D AND ORDERED.
--- NOTE | 2018-11-12 19:30 | NUR ---
SHIFT ASSESSMENT COMPLETED SEE FLOWSHEET. PATIENT ON BIPAP AT THIS TIME. VSS CPOC
--- NOTE | 2018-11-12 21:53 | NUR ---
PATIENT RECEIVED HS MEDICATIONS - S/S ASPIRATION HONEY THICK LIQUIDS. VSS. PLACED PATIENT BACK ON BIPAP. WILL CONTINUE TO MONITOR
--- NOTE | 2018-11-12 22:25 | NUR ---
PATIENT RESTING COMFORTABLY NO SIGNS OF DISTRESS VSS CPOC
--- NOTE | 2018-11-12 23:03 | NUR ---
REASSESSMENT COMPLETED SEE FLOWSHEET
[2018-11-13] VITALS (23 sets, daily range): BP systolic 113–152; BP diastolic 66–88
--- NOTE | 2018-11-13 01:14 | NUR ---
PATIENT RESTING COMFORTABLY NO APPARENT DISTRESS
--- NOTE | 2018-11-13 02:00 | NUR ---
PT FAVORING RIGHT SHOULDER, DELTOID MUSCLE HARD TO PALPATION, BRUISING AND SHOULDER LOOKS MISPLACED. CAUSING PATIENT PAIN DURING ADLS, UNABLE TO LIFT ARM - HGB BATH RECEIVED AND LINEN CHANGE COMPLETED. SMEAR OF POOP NOTED. CLEANED UP PROTECTIVE BARRIER APPLIED TO BUTTOCKS. VSS CPOC
--- NOTE | 2018-11-13 03:15 | NUR ---
REASSESSMENT COMPLETED SEE FLOWSHEET
--- NOTE | 2018-11-13 03:55 | NUR ---
REASSESSMENT COMPLETED SEE FLOWSHEET
[2018-11-13 05:36] LABS: HEMATOCRIT 24.7 % (42.0-54.0); MCH 29.9 pg (26.0-34.0); MCHC 32.4 g/dL (31.0-37.0); MCV 92.2 fL (80.0-100.0); MEAN PLATELET VOLUME 9.9 fL (7.4-10.4); PLATELET COUNT 97 10x3/uL (130-400); RBC 2.68 10x6/uL (4.20-6.10); RDW 16.4 % (11.5-14.5); WBC 15.4 10x3/uL (4.8-10.8)
[2018-11-13 05:44] LABS: ANION GAP 14.3 mmol/L (8-16); CALCIUM 7.3 mg/dL (8.5-10.1); CARBON DIOXIDE 27.1 mmol/L (21.0-32.0); CREATININE - SERUM 3.2 mg/dL (0.6-1.3); POTASSIUM - SERUM 3.4 mmol/L (3.5-5.1)
[2018-11-13 06:50] LABS: ANISOCYTOSIS 1+; LYMPHOCYTES 97 % (15-50); NEUTROPHILS 3 % (40-80); PLATELET ESTIMATE DECREASED
--- NOTE | 2018-11-13 08:50 | NUR ---
PT POSITIONED FOR BREAKFAST. ASPIRATION PRECAUTIONS USED WHILE PT FED. PT ATE A FEW BITES AND DRANK RX MEAL. PT FOLLOWING COMMAND, SLOW TO SWALLOW, NEEDS ENCOURAGEMENT TO NOT POCKET FOOD. NO S&S OF ASPIRATING NOTED.
--- NOTE | 2018-11-13 11:10 | NUR ---
DR MCKEON HERE ON ROUNDS. DISCUSSED RESULTS OF SHOULDER XR FROM YESTERDAY AND THAT PT FAVORS RT SHOULDER.
--- NOTE | 2018-11-13 12:45 | NUR ---
PT RESTING QUIETLY ON BIPAP.
--- NOTE | 2018-11-13 13:30 | NUR ---
PT TAKEN OFF BIPAP AND FED LUNCH. DR WYATT HERE ON ROUNDS. DR REECE HERE ON ROUNDS WELL. PT ATE APPROX 30% OF MEAL.
--- NOTE | 2018-11-13 16:09 | NUR ---
1st u prbc started.
--- NOTE | 2018-11-13 17:45 | NUR ---
BIPAP OFF, [id number]. PT FED. PT ATE APPROX 30% OF MEAL. PT FATIGUE.
--- NOTE | 2018-11-13 19:47 | NUR ---
PT RECEIVED WITH EYES OPEN, WATCHING TV. RECEIVING SECOND UNIT OF 2 PRBC, TOLERATING WELL. NO COMPLAINTS OF PAIN. CALL LIGHT IN REACH. WILL CONTINUE TO OBSERVE.
--- NOTE | 2018-11-13 21:30 | NUR ---
PT RECEIVED THICKENED WATER PER REQUEST. NO S/S OF DISTRESS. VSS. WILL CONTINUE TO OBSERVE.
--- NOTE | 2018-11-13 23:48 | NUR ---
PT RESTING WITH EYES CLOSED AND CHEST RISING. EASILY AWOKEN TO VERBAL STIMULI. REASSESSMENT COMPLETED, SEE FLOW SHEET. WILL CONTINUE TO OBSERVE.
[2018-11-14] VITALS (13 sets, daily range): BP systolic 113–145; BP diastolic 58–76
--- NOTE | 2018-11-14 01:03 | NUR ---
PT WITH EYES OPEN WATCHING TV. NO S/S OF DISTRESS. VSS. WILL CONTINUE TO OBSERVE
--- NOTE | 2018-11-14 03:59 | NUR ---
PT WITH EYES OPEN. RECEIVED THICKENED APPLE JUICE PER REQUEST. REASSESSMENT COMPLETED. WILL CONTINUE TO OBSERVE.
[2018-11-14 05:00] LABS: BASOPHILS 0.1 % (0-2); EOSINOPHILS 0.1 % (0-7); HEMATOCRIT 28.7 % (42.0-54.0); HEMOGLOBIN 9.4 g/dL (13.5-17.5); LYMPHOCYTES 93.1 % (15-50); MCH 29.7 pg (26.0-34.0); MCHC 32.8 g/dL (31.0-37.0); MCV 90.5 fL (80.0-100.0); NEUTROPHILS 5.7 % (40-80); PLATELET COUNT 117 10x3/uL (130-400); RBC 3.17 10x6/uL (4.20-6.10); RDW 16.6 % (11.5-14.5); WBC 20.4 10x3/uL (4.8-10.8)
[2018-11-14 05:10] LABS: ANION GAP 15.9 mmol/L (8-16); CALCIUM 7.7 mg/dL (8.5-10.1); CARBON DIOXIDE 25.6 mmol/L (21.0-32.0); CREATININE - SERUM 3.4 mg/dL (0.6-1.3); MAGNESIUM - SERUM 2.1 mg/dL (1.8-2.4); PHOSPHOROUS 7.2 mg/dL (2.5-4.9); POTASSIUM - SERUM 3.5 mmol/L (3.5-5.1)
--- NOTE | 2018-11-14 07:15 | NUR ---
REPORT RECEIVED. ASSESSMENT COMPLETE PER FLOW SHEET. VSS. COMPLETE BB LINEN CHANGE ADM. CHG BATH ADM. NEEDS MET
--- NOTE | 2018-11-14 09:20 | NUR ---
ATE 50% BREAKFAST.
--- NOTE | 2018-11-14 09:48 | NUR ---
Nutrition follow-up: Diet: Regular mechanical soft with honey thick liquids; pt drinking nutrition supplements PO intake 25-30% of meals Labs reviewed Wt: 273# Pt remains on BIPAP most of the time HD continues RDN following.
--- NOTE | 2018-11-14 10:50 | NUR ---
DIALYSIS AT BEDSIDE GIVEN UDPATE.
--- NOTE | 2018-11-14 12:15 | NUR ---
PT RESTING COMFORTABLY DIALYSIS AT BEDSIDE. WILL CONTINUE TO MONITOR
--- NOTE | 2018-11-14 13:20 | NUR ---
PT RESTING AT THIS TIME, NO NEEDS NOTED, WILL CON'T TO MONITOR
--- NOTE | 2018-11-14 15:00 | NUR ---
REPOSITIONED FOR COMFORT, PT TOLERATED WELL
--- NOTE | 2018-11-14 16:22 | MORECARE ---
CASE MANAGEMENT DISCHARGE SUMMARY PATIENT: PHIL BERMAN UNIT: [id number] ADM DATE: 10/16/18 AGE: 63 : 53 SEX: M ROOM/BED: D.2305 AUTHOR: NATALIE,DOC PHYSICIAN: REFERRING PHYSICIAN: DOMENICA BRYANT MD DATE OF SERVICE: 11/14/18 Discharge Plan Patient Name: PHIL BERMAN Facility: [facility]:[place] : 1955 Planned Disposition: Home Anticipated Discharge Date: Discharge Date: Expected LOS: Initial Reviewer: [email or web address] Initial Review Date: 10/20/2018 Generated: 11/14/18 5:22 pm Comments DCP- Discharge Planning Updated by [email or web address]: Lily Moss on 11/14/18 3:[address] CM spoke with patient's son Herve Berman [phone]. Herve states that at this time he is planning on his father living with him upon discharge. Herve states that he is looking into private care in his home upon discharge. Herve states that he lives in [place], [place]. CM will notify Melissa Bert on plans for discharge since patient is new to dialysis. CM will continue to follow and assist as needed with discharge planning / needs. DCP- Discharge Planning Updated by [id number]: Lily Moss on 11/08/18 2:[address] CM missed physician today to get physician recertification statement signed. Placed form on front of patients chart and notified nursing. CM will continue to follow and assist as needed with discharge planning / needs. DCP- Discharge Planning Updated by [id number]: Iona Moses on 10/20/18 10:[address] Patient Name: PHIL BERMAN Admission Status: ER Accout number: [id number] Admission Date: 10-16-2018 : 1955 Admission Diagnosis:WEAKNESS Attending: DOMENICA BRYANT Current LOS: 4 Anticipated DC Date: Planned Disposition: Home Primary Insurance: MEDICAID [place] Discharge Planning Comments: CM met with patient to complete initial dc planning assessment. CM educated patient on the CM role and verbal consent given by patient to complete assessment. Patient lives at home alone in a camping trailer, address on face sheet verified. At discharge patient plans to return and feels this is a safe discharge. He states his friend Al and Cintia live on the same property and will check on him and take him home at discharge. CM discussed availability of home health, rehab services, and medical equipment. Patient denied known discharge needs at this time. I encouraged home health and he declines at this time. He also has a son that lives in [place], he states that he does not want to stay with his son. He declines to give me his son's number and states that Cintia can call him if needed. CM will continue to follow and will assist as needed with dc plans/needs. Lacing Operator: Iona Moses DCPIA - Discharge Planning Initial Assessment Updated by [email or web address]: Iona Moses on 10/20/18 11:19 am * Is the patient Alert and Oriented? Yes * How many steps to enter\exit or inside your home? 08/12 * PCP Dr. Keagan Wesley * Pharmacy [facility] in [place] * Preadmission Environment Home Alone * ADLs Independent * Equipment Walker * List name and contact numbers for known caregivers / representatives who currently or will assist patient after discharge: Al and Cintia - friends - [phone] * Verbal permission to speak to the caregivers and representatives has been obtained from the patient. Yes * Community resources currently utilized None * Additional services required to return to the preadmission environment? Yes * Can the patient safely return to the preadmission environment? Yes * Has this patient been hospitalized within the prior 30 days at any hospital? No Last DP export: 11/08/18 3:06 p Patient Name: PHIL BERMAN Page [id number] at 1622 All edits/amendments must be made on the electronic document DICTATION DATE: 11/14/181621 UNDERWRITER SOLICITATION DIRECTOR: JAMI 11/14/181621 RPT#: [id number] DC DATE: STATUS: ADM IN [facility] [address] [place] [address] END OF REPORT
--- NOTE | 2018-11-14 17:10 | NUR ---
REPOSITIONED FOR COMFORT, NO OTHER NEEDS NOTED, VSS,
--- NOTE | 2018-11-14 20:18 | NUR ---
PT RECEIVED WITH EYES OPEN WATCHING TV. PT INCONTINENT OF BOWEL WITH PERICARE PROVIDED WITH PAD CHANGE. STOOL BROWN LIQUID. PT TOLERATED WELL. ASSESSMENT COMPLETED, SEE FLOW SHEET. CALL LIGHT IN REACH. WILL CONTINUE TO OBSERVE.
--- NOTE | 2018-11-14 22:05 | NUR ---
PT RECEIVED 2100 MEDICATIONS TOLERATED ORAL MEDICATIONS WELL, NO S/S OF ASPIRATION NOTED. NO COMPLAINTS OR CONCERNS NOTED. WILL CONTINUE TO OBSERVE.
--- NOTE | 2018-11-14 23:20 | NUR ---
REPORT GIVEN TO RECEIVING NURSE FOR [id number]. CHART AND BELONGINGS GATHERED. TRANSFERRING VIA BED.
--- NOTE | 2018-11-15 02:44 | NUR ---
PT TRANSFERRED TO 2115 VIA BED BY NURSE AND RT. PT TOLERATED WELL. UPDATED REPORT GIVEN.
--- NOTE | 2018-11-15 03:08 | NUR ---
RECEIVED PATIENT FROM MODESTA IN ICU. PATIENT RESTING COMFORTABLY ION BED. PATIENT IS ON BIPAP. NEEDS MET. NO S/S OF DISTRESS. NO C/O PAIN. CALL LIGHT WITHIN REACH. WILL CPOC.
[2018-11-15 04:43] LABS: BASOPHILS 0.1 % (0-2); EOSINOPHILS 0.2 % (0-7); HEMATOCRIT 29.9 % (42.0-54.0); HEMOGLOBIN 9.5 g/dL (13.5-17.5); IMMATURE GRANULOCYTES 0.1 % (0-5); LYMPHOCYTES 91.6 % (15-50); MCH 29.5 pg (26.0-34.0); MCHC 31.8 g/dL (31.0-37.0); MEAN PLATELET VOLUME 9.8 fL (7.4-10.4); MONOCYTES 2.6 % (2-11); NEUTROPHILS 5.4 % (40-80); PLATELET COUNT 120 10x3/uL (130-400); RBC 3.22 10x6/uL (4.20-6.10); RDW 16.6 % (11.5-14.5); WBC 19.3 10x3/uL (4.8-10.8)
[2018-11-15 04:57] LABS: ANION GAP 13.8 mmol/L (8-16); CALCIUM 7.9 mg/dL (8.5-10.1); CARBON DIOXIDE 29.3 mmol/L (21.0-32.0); CREATININE - SERUM 2.7 mg/dL (0.6-1.3); MAGNESIUM - SERUM 1.9 mg/dL (1.8-2.4); MCV 92.9 fL (80.0-100.0); PHOSPHOROUS 5.7 mg/dL (2.5-4.9); POTASSIUM - SERUM 3.1 mmol/L (3.5-5.1)
--- NOTE | 2018-11-15 07:38 | NUR ---
ROUNDING DONE WITH PATIENT RESITING WITH EYES CLOSED, ON BIPAP. ON HEART MONITOR SHOWING SR, HR 87. ON EP, K+ IS 3.1, BEING COVERED WITH IV POTASSIUM. RIGHT TRIALYSIS CVL SEEN RIGHT IJ WITH NS INFUSING AT 30 CC/HR. MOODY CATH PATENT SEEN WITH YELLOW URINE. RIGHT WRIST SEEN WITH BLACK COLORED BRACE. GENERALIZED EDEMA SEEN TO ALL EXTREMITIES. WILL MONITOR,
[2018-11-15 07:58] VITALS: BP 141/77
--- NOTE | 2018-11-15 10:43 | NUR ---
BED BATH AND LINEN CHANGE R/T INCONT. OF STOOL.
[2018-11-15 12:15] VITALS: BP 138/67
--- NOTE | 2018-11-15 15:02 | NUR ---
PER WILDER ORNELAS, I CALLED REGISTRATION FOR CHANGING OF PHONE NUMBER IN SYSTEM TO [phone].
[2018-11-15 16:00] VITALS: BP 131/72
--- NOTE | 2018-11-15 19:53 | NUR ---
RESUMING PATIENT CARE. PATIENT IS ALERT AND ORIENTED, RESTING COMFORTABLY IN BED. RESPIRATIONS ARE EVEN AND UNLABORED. PATIENT REMAINS ON 2L NC. NO S/S OF DISTRESS. NO C/O PAIN. CALL LIGHT WITHIN REACH. WILL CPOC.
[2018-11-15 21:24] VITALS: BP 123/75
--- NOTE | 2018-11-15 22:00 | NUR ---
WHEN ATTEMPTING TO GIVE PATIENT IS HS MEDICATION. PATIENT WAS DIFFICULT TO AROUSE. PATIENT WAS DIAPHORATIC. PUPILS WERE PINPOINT. PATIENT HAD A DEFINITE CHANGE IN MENTAL STATUS FROM EARLIER IN THE SHIFT. REPID RESPONSE CALLED. VITAL SIGNS STABLE. O2 95. BLOOD SUGAR 104. HORTENCIA FROM ICU CALLED EDUARD PRIETO NO ORDERS GIVEN. HORTENCIA ALSO CALLED AND INFORMED. DR. SHIN WHOM GAVE ORDERS TO KEEP PATIENT ON THE BIPAP AND OBTAIN ABGs @ 0400.
[2018-11-16] VITALS: BP 127/72
[2018-11-16 04:00] VITALS: BP 136/77
[2018-11-16 04:59] LABS: BASOPHILS 0.1 % (0-2); EOSINOPHILS 0.2 % (0-7); HEMOGLOBIN 8.9 g/dL (13.5-17.5); IMMATURE GRANULOCYTES 0.1 % (0-5); LYMPHOCYTES 92.7 % (15-50); MCH 29.8 pg (26.0-34.0); MCHC 31.8 g/dL (31.0-37.0); MCV 93.6 fL (80.0-100.0); MEAN PLATELET VOLUME 9.9 fL (7.4-10.4); MONOCYTES 1.4 % (2-11); NEUTROPHILS 5.5 % (40-80); PLATELET COUNT 116 10x3/uL (130-400); RBC 2.99 10x6/uL (4.20-6.10); RDW 16.4 % (11.5-14.5); WBC 18.4 10x3/uL (4.8-10.8)
[2018-11-16 05:00] LABS: ANION GAP 10.4 mmol/L (8-16); CARBON DIOXIDE 29.3 mmol/L (21.0-32.0); PHOSPHOROUS 6.7 mg/dL (2.5-4.9)
[2018-11-16 05:10] LABS: POTASSIUM - SERUM 2.7 mmol/L (3.5-5.1)
[2018-11-16 07:56] VITALS: BP 122/66
--- NOTE | 2018-11-16 12:08 | NUR ---
PT LEAVING FOR DIALYSIS NOW. ALREADY TREAT POTASSIUM AND DISCUSSED WITH DIALYSIS ABOUT POTASSIUM BATH. WILL TRY TO CLARIFY WITH RENAL IF HE NEEDS ADDITIONAL THEY ORDERED SOME JUST NOW. COMPLETE BED CHANGE PROVIDED PT WAS INCONTINENT OF LOOSE STOOL. CVL DRSG KIT SENT TO DIALYSIS TODAY IS WEDNESDAY AND THEY NEED CHANGED. NO CURRENT NEEDS AT THIS TIME. WILL CTM.
--- NOTE | 2018-11-16 17:11 | NUR ---
PT BACK FROM DIALYSIS A&O SLOUCHED DOWN IN BED. REPOSITIONED PT UP IN BED AND TOWARDS HIS R.SIDE HE OFTEN TENDS TO LEAN ON HIS LEFT. ELEVATED PTS R.ARM ON 2 PILLOWS TO HELP REDUCE SWELLING. R.WRIST BRACE IN PLACE AND NOT TOO TIGHT. PROVIDED MEAL ASSISTANCE AND PT WAS ABLE TO FEED HIMSELF A COUPLE BITES WITH HIS LEFT ARM. PT IS EXTREMELY WEAK BUT WAS MOTIVATED. PT ATE ABOUT 9 BITES AND GOT FULL. PROVIDED PT WITH THICKENED WATER BUT HE IS BARELY DRINKING BECAUSE HE HATES THE THICKENER. DISCUSSED WITH SPEECH PATHOLOGIST AND THEY ASSESSED HIM EARLIER AND STATES HE ISNT READY TO ADVANCE. WILL CONTINUE TO ENCOURAGE HIM AND TRY TO PROVIDE HIM WITH WHAT HE WILL DRINK. DIALYSIS NURSE CHANGED R.CVL AND R.TRIALYSIS DRSG. PT IS ACTUALLY NOT RECIEVING DAILY IV MEDICATIONS AND MAY BENEFIT FROM CVL BEING REMOVED, WILL DISCUSS WITH PRIMARY AND TRY TO GET IT OUT TO LOWER RISK FOR INFECTION. MOODY DRAINING TO GRAVITY OFF R.SIDE OF BED. CHANGED OUT STAT LOCK PER PROTOCOL AND ITS NOW SECURED TO PTS R.THIGH. PTS LEFT THIGH HAS SKIN IRRITATION FROM STAT LOCK THAT WAS THERE. CLEANSED AND WILL KEEP HYDROELECTRIC OPERATOR. PT VOICED THANKS AND STATES HE IS ACTUALLY FEELING BETTER TODAY. NC @2L IN PLACE LUNGS HAVE CRACKLES IN BILAT UPPER LOBES AND DIMINISHED THROUGHOUT THE OTHERS. PT DENIES ANY CURRENT PAIN OR FURTHER NEEDS AT THIS TIME. CALL LIGHT IN REACH, BED IN LOWEST, SIDE RAILS X2. WILL CPOC.
--- NOTE | 2018-11-16 18:02 | NUR ---
PT INCONTINENT OF BOWEL MOVEMENT AGAIN. TOOL TECHNICIAN AT BEDSIDE SHAVING PT AND COMPLETING ENTIRE BED BATH. NO CURRENT NEEDS. WILL CTM.
[2018-11-16 20:00] VITALS: BP 125/67
[2018-11-17 04:00] VITALS: BP 132/73
[2018-11-17 05:17] LABS: BASOPHILS 0.1 % (0-2); EOSINOPHILS 0.2 % (0-7); HEMATOCRIT 27.2 % (42.0-54.0); HEMOGLOBIN 8.7 g/dL (13.5-17.5); LYMPHOCYTES 91.2 % (15-50); MCH 29.9 pg (26.0-34.0); MCV 93.5 fL (80.0-100.0); MEAN PLATELET VOLUME 8.9 fL (7.4-10.4); MONOCYTES 2.1 % (2-11); NEUTROPHILS 6.4 % (40-80); RBC 2.91 10x6/uL (4.20-6.10); RDW 15.9 % (11.5-14.5); WBC 15.4 10x3/uL (4.8-10.8)
[2018-11-17 05:18] LABS: PLATELET COUNT 102 10x3/uL (130-400)
[2018-11-17 05:28] LABS: ANION GAP 12.7 mmol/L (8-16); CARBON DIOXIDE 29.1 mmol/L (21.0-32.0)
[2018-11-17 05:30] LABS: CREATININE - SERUM 2.2 mg/dL (0.6-1.3)
[2018-11-17 05:31] LABS: POTASSIUM - SERUM 2.8 mmol/L (3.5-5.1)
--- NOTE | 2018-11-17 07:23 | NUR ---
AM ROUNDS COMPLETED. INTRODUCED MYSELF TO PT PRIMARY RN FOR TODAYS SHIFT. PT IS A&O SITTING UP IN BED ASKING FOR JUICE. PROVIDED PT WITH THICKENED CRANBERRY JUICE AND PT VOICED THANKS. PT STATES HE HAD AN "OKAY NIGHT" OVERALL. REPOSITIONED PT UP IN BED FOR COMFORT AND ELEVATED R.ARM ON PILLOW TO HELP REDUCE SWELLING. MOODY DRAINING TO GRAVITY OFF L.SIDE OF BED WITHOUT ANY KINKS OR ISSUES NOTED. STUDENT NURSE WILL DELIVER MEDICATIONS TODAY AND MET WITH PT. POTASSIUM STILL LOW AND WILL NEED REPLACED AND STUDENT WILL PROVIDE. NO IMMEDIATE NEEDS AT THIS TIME. CL IN REACH, BED IN LOWEST, SIDE RAILS X2, WILL CTM.
[2018-11-17 09:23] VITALS: BP 122/67
--- NOTE | 2018-11-17 11:43 | NUR ---
PT HAD BOWEL MOVEMENT AND IS INCONTINENT OF BOWEL MOVEMENT. STUDENTS AT BEDSIDE AND COMPLETE BED CHANGE PROVIDED AND BED BATH. REPOSITIONED PT UP IN BED FOR COMFORT AND HE VOICED THANKS. PT IS VERY TIRED AND WORN OUT. DENIES ANY CURRENT PAIN OR NEEDS AT THIS TIME. CL IN REACH, BED IN LOWEST, SIDE RAILS X2. WILL CTM.
--- NOTE | 2018-11-17 13:32 | NUR ---
DISCUSSED WITH PRIMARY ABOUT PT NOT NEEDING HIS CVL ANYMORE. OBTAINED ORDERS TO D/C AND CULTURE TIP. D/C R.JUGLAR CVL WITH CATHETER TIP FULLY INTACT, REMOVED 2 STITCHES AND HELD PRESSURE FOR 10MINS. NO BLEEDING NOTED. CUT TIP OFF WITH STERILE SCISSORS AND SENT TO LAB FOR CULTURE ORDERED. R.NECK TRIALYSIS WAS SO CLOSE TO CVL THAT DRSG WAS COMPROMISED. CHANGED USING STERILE TECHNIQUE AND BIOPATCH CDI, DRSG ADHERED TO SKIN FOR NOW HOWEVER VERY VARIABLE LOCATION AND LIKELY WILL PEEL OFF OR NEED RE-SECURED. PROVIDED PT WITH LAST DOSE OF POTASSIUM PER ELECTROLYTE PROTCOL AND ORDERED TIMED REDRAW PER PROTOCOL ORDERS. AFTER PT LAYED FLAT FOR 10MINS, I REPOSITIONED PT UP IN BED AND ELEVATED R.ARM ON PILLOW. R.ARM STILL SWOLLEN AND SORE. PT REQUESTED A PAIN MEDICATION, NO CURRENT ORDER WILL PAGE PRIMARY. PTS SON CALLED AND WAS UPDATED ON PROGRESS. SON JOHNSON STATES HE WANTS PT DISCHARGED HOME WITH HIM AND HOME HEALTH HOPEFULLY, PT VERY OPTIMISTIC AND IS WILLING TO TRY THERAPY TO GET MORE MOBILITY. NO IMMEDIATE NEEDS AT THIS TIME. CL IN REACH, BED IN LOWEST, SIDE RAILS X2. WILL CPOC.
[2018-11-17 13:35] VITALS: BP 115/53
--- NOTE | 2018-11-17 14:21 | NUR ---
Rehab Note- Acute Inpatient Rehab prescren order received. The patient has Medicaid and cannot be accepted to [facility] Acute Inpatient Rehab. Thank you for this referral! Emily Nick RN CLinical Liaison, [facility] Rehab
--- NOTE | 2018-11-17 14:47 | NUR ---
SPEECH PATHOLOGIST AT BEDSIDE AND ADVANCED PTS DIET AND LIQUID ORDER. PT VERY HAPPY ABOUT THIS, REQUESTED AND WAS PROVIDED WITH FRESH ICE WATER. PT STILL IN PAIN AND I OBTAINED PRN PAIN MEDICATION ORDER AND PROVIDED HIM WITH IT. NO FURTHER NEEDS AT THIS TIME. CL IN REACH, BED IN LOWEST, SIDE RAILS X2. WILL CTM.
--- NOTE | 2018-11-17 16:35 | NUR ---
OT NOTE: PT COMPLETED SELF FEEDING TASKS USING LUE. PT COMLPLETED HYGIENE AND GROOMING TASKS WITH MIN A. PT COMPLETED LUE AROM AXS. THANK YOU, LEWIS ZAZUETA
--- NOTE | 2018-11-17 17:01 | MORECARE ---
CASE MANAGEMENT DISCHARGE SUMMARY PATIENT: PHIL BERMAN UNIT: [id number] ADM DATE: 10/16/18 AGE: 63 : 54 SEX: M ROOM/BED: D.2116 AUTHOR: NATALIE,DOC PHYSICIAN: REFERRING PHYSICIAN: DOMENICA BRYANT MD DATE OF SERVICE: 11/17/18 Discharge Plan Patient Name: PHIL BERMAN Facility: [facility]:[place] : 1955 Planned Disposition: Home Anticipated Discharge Date: Discharge Date: Expected LOS: Initial Reviewer: [email or web address] Initial Review Date: 10/20/2018 Generated: 11/17/18 6:01 pm DCP- Discharge Planning Updated by [id number]: Lily Moss on 11/14/18 3:[address] CM spoke with patient's son Herve Berman [phone]. Herve states that at this time he is planning on his father living with him upon discharge. Herve states that he is looking into private care in his home upon discharge. Hevre states that he lives in [place], [place]. CM will notify Melissa Noel on plans for discharge since patient is new to dialysis. CM will continue to follow and assist as needed with discharge planning / needs. DCP- Discharge Planning Updated by [email or web address]: Lily Moss on 11/08/18 2:[address] CM missed physician today to get physician recertification statement signed. Placed form on front of patients chart and notified nursing. CM will continue to follow and assist as needed with discharge planning / needs. DCP- Discharge Planning Updated by [id number]: Iona Moses on 10/20/18 10:[address] Patient Name: PHIL BERMAN Admission Status: ER Accout number: [id number] Admission Date: 10-16-2018 : 1955 Admission Diagnosis:WEAKNESS Attending: DOMENICA BRYANT Current LOS: 4 Anticipated DC Date: Planned Disposition: Home Primary Insurance: MEDICAID [place] Discharge Planning Comments: CM met with patient to complete initial dc planning assessment. CM educated patient on the CM role and verbal consent given by patient to complete assessment. Patient lives at home alone in a camping trailer, address on face sheet verified. At discharge patient plans to return and feels this is a safe discharge. He states his friend Al and Cintia live on the same property and will check on him and take him home at discharge. CM discussed availability of home health, rehab services, and medical equipment. Patient denied known discharge needs at this time. I encouraged home health and he declines at this time. He also has a son that lives in [place], he states that he does not want to stay with his son. He declines to give me his son's number and states that Cintia can call him if needed. CM will continue to follow and will assist as needed with dc plans/needs. Spinner Operator: Iona Moses DCPIA - Discharge Planning Initial Assessment Updated by [id number]: Iona Moses on 10/20/18 11:19 am * Is the patient Alert and Oriented? Yes * How many steps to enter\exit or inside your home? 08/12 * PCP Dr. Keagan Wesley * Pharmacy [facility] in [place] * Preadmission Environment Home Alone * ADLs Independent * Equipment Walker * List name and contact numbers for known caregivers / representatives who currently or will assist patient after discharge: Al and Cintia - friends - [phone] * Verbal permission to speak to the caregivers and representatives has been obtained from the patient. Yes * Community resources currently utilized None * Additional services required to return to the preadmission environment? Yes * Can the patient safely return to the preadmission environment? Yes * Has this patient been hospitalized within the prior 30 days at any hospital? No Last DP export: 11/14/18 3:22 pm Patient Name: PHIL BERMAN Page [id number] at 1701 All edits/amendments must be made on the electronic document DICTATION DATE: 11/17/181700 CUSTOMER SERVICE ANALYST: JAMI 11/17/181700 RPT#: [id number] DC DATE: STATUS: ADM IN [facility] [address] [place] [address] END OF REPORT
--- NOTE | 2018-11-17 17:16 | MORECARE ---
CASE MANAGEMENT DISCHARGE SUMMARY PATIENT: PHIL BERMAN UNIT: [id number] ADM DATE: 10/16/18 AGE: 63 : 54 SEX: M ROOM/BED: D.2116 AUTHOR: NATALIEDOC PHYSICIAN: REFERRING PHYSICIAN: DOMENICA BRYANT MD DATE OF SERVICE: 11/17/18 Discharge Plan Patient Name: PHIL BERMAN Facility: [facility]:[place] : 1955 Planned Disposition: Home Anticipated Discharge Date: Discharge Date: Expected LOS: Initial Reviewer: [email or web address] Initial Review Date: 10/20/2018 Generated: 11/17/18 6:16 pm Comments DCP- Discharge Planning Updated by [email or web address]: Randolph Ontiveros on 11/17/18 4:[address] Patient Name: PHIL BERMAN Encounter No: [id number] : 1955 Primary Insurance: MEDICAID [place] Anticipated DC Date: Planned Disposition: Home WITH HOME HEALTH External Planned Provider: TO BE DETERMINED DCP follow-up note: CM SPOKE TO DR. WYATT WHO INFORMED CM THAT SHE WILL SPEAK TO DR. CARVALHO REGARDING POSSIBLE HOSPICE FOR PT. CM LATER RECEIVED ORDER FOR INPATIENT REHAB PRESCREENING. CM REVIEWED CHART, PT HAS MEDICAID, IS DOING RANGE OF MOTION WITH THERAPY IN HOSPITAL. PT HAS BEEN IN THE HOSPITAL FOR OVER ONE MONTH. PT DOES NOT HAVE ACUTE DAYS AVAILABLE WITH MEDICAID FOR INPATIENT REHAB, PT COULD NOT TOLERATE THREE HOURS OF PROGRESSIVE THERAPY FOR INPATIENT REHAB, PT'S INSURANCE WILL NOT PAY FOR REHAB IN [facility], BUT WILL PAY FOR "RESTORATIVE" OR SENIOR LIVING CARE IN INTERMEDIATE. CM MET WITH PT IN ROOM, DISCUSSED ORDERS AND ABOVE INFORMATION. PT DOES NOT WANT TO GO LIVE IN A INTERMEDIATE. PT UNDERSTANDS HE DOES NOT HAVE INSURANCE NOW TO PAY FOR REHAB SERVICES BUT MAY HAVE MEDICARE IN THE FUTURE THEY OFFERED FOR HIM TO BUY INTO THE PROGRAM FOR A MONTHLY PAYMENT AND PT HAS PREVIOUSLY DECLINED. PT KNOWS WHAT HOSPICE HIS, BUT HAS NOT CONSIDERED THIS AT THIS TIME. PT REPORTS HE IS NOT GOING BACK TO HIS HOME, BUT GOING TO LIVE WITH HIS SON IN [place]. PT DIRECTED CM TO CALL HIS SON TO DISCUSS DISCHARGE PLANNING. CM CALLED HERVE BERMAN, SON, . HERVE REPORTS THAT PT IS NOT GOING TO A INTERMEDIATE. THEY WILL BE BRINING PT TO HERVE'S HOME AT [address] [place] [address]. THEY WILL NEED A BEDSIDE COMMODE AND SHOWER CHAIR AND WILL ALSO NEED HOME HEALTH TO ASSIST THEM WITH PT'S CARE IN THE HOME. CM DISCUSSED THAT PT IS CURRENTLY BED CONFINED, NOT DOING ANY BED MOBILITY AT ALL AND IS ONLY DOING RANGE OF MOTION WITH THERAPY. HERVE AGAIN REPORTS PT IS NOT GOING TO INTERMEDIATE AND THEY WILL TAKE CARE OF PT AT [facility] [place] WITH FAMILY ASSISTANCE. HERVE WILL ATTEMPT TO FIND OUT WHO PT'S PRIMARY CARE DOCTOR IS WELL MAKE DECISION ON HOME HEALTH COMPANY AND LET CM KNOW. PT'S SON PLANS FOR PT TO LIVE IN SON'S HOME AND FAMILY PLANS TO CARE FOR PT AT HOME. THEY REPORT TO NEED BEDSIDE COMMODE, SHOWER CHAIR AND HOME HEALTH. CM WAITING ON RETURN CALL FROM SON WITH PRIMARY DOCTOR NAME AND HOME HEALTH COMPANY PREFERENCE. CM WILL CONTINUE TO FOLLOW AND ASSIST NEEDED. Randolph Ontiveros. CASE MANAGEMENT DCP- Discharge Planning Updated by [id number]: Lily Moss on 11/14/18 3:[address] CM spoke with patient's son Herve Berman [phone]. Herve states that at this time he is planning on his father living with him upon discharge. Herve states that he is looking into private care in his home upon discharge. Herve states that he lives in [place], [place]. CM will notify Melissa Noel on plans for discharge since patient is new to dialysis. CM will continue to follow and assist as needed with discharge planning / needs. DCP- Discharge Planning Updated by [id number]: Lily Moss on 11/08/18 2:[address] CM missed physician today to get physician recertification statement signed. Placed form on front of patients chart and notified nursing. CM will continue to follow and assist as needed with discharge planning / needs. DCP- Discharge Planning Updated by [id number]: Iona Moses on 10/20/18 10:[address] Patient Name: PHIL BERMAN Admission Status: ER Accout number: [id number] Admission Date: 10-16-2018 : 1955 Admission Diagnosis:WEAKNESS Attending: DOMENICA BRYANT Current LOS: 4 Anticipated DC Date: Planned Disposition: Home Primary Insurance: MEDICAID [place] Discharge Planning Comments: CM met with patient to complete initial dc planning assessment. CM educated patient on the CM role and verbal consent given by patient to complete assessment. Patient lives at home alone in a camping trailer, address on face sheet verified. At discharge patient plans to return and feels this is a safe discharge. He states his friend Al and Cintia live on the same property and will check on him and take him home at discharge. CM discussed availability of home health, rehab services, and medical equipment. Patient denied known discharge needs at this time. I encouraged home health and he declines at this time. He also has a son that lives in [place], he states that he does not want to stay with his son. He declines to give me his son's number and states that Cintia can call him if needed. CM will continue to follow and will assist as needed with dc plans/needs. Post Graduate Internship: Iona Moses DCPIA - Discharge Planning Initial Assessment Updated by [id number]: Iona Moses on 10/20/18 11:19 am * Is the patient Alert and Oriented? Yes * How many steps to enter\\exit or inside your home? 08/12 * PCP Dr. Keagan Wesley * Pharmacy [facility] in [place] * Preadmission Environment Home Alone * ADLs Independent * Equipment Walker * List name and contact numbers for known caregivers / representatives who currently or will assist patient after discharge: Al and Cintia - [facility] - [phone] * Verbal permission to speak to the caregivers and representatives has been obtained from the patient. Yes * Community resources currently utilized None * Additional services required to return to the preadmission environment? Yes * Can the patient safely return to the preadmission environment? Yes * Has this patient been hospitalized within the prior 30 days at any hospital? No Last DP export: 11/17/18 4:01 pm Patient Name: PHIL BERMAN Page [phone] at 0445 All edits/amendments must be made on the electronic document DICTATION DATE: 11/17/181714 DIESEL MOTOR MECHANIC: JAMI 11/17/181714 RPT#: [id number] DC DATE: STATUS: ADM IN [facility] [address] [place] [address] END OF REPORT
[2018-11-17 18:00] VITALS: BP 118/64
--- NOTE | 2018-11-17 19:13 | NUR ---
PTS REDRAW POTASSIUM CAME BACK AT 3.5 TREATED PT AGAIN PER ELECTROLYTE PROTOCOL. WILL RECHECK IN AM. PT SITTING UP IN BED RESTING QUIETLY. DENIES ANY CURRENT PAIN OR NEEDS. CL IN REACH. BEDSIDE SHIFT REPORT GIVEN.
--- NOTE | 2018-11-17 19:30 | NUR ---
RESUMING PATIENT CARE. PATIENT IS ALERT AND ORIENTED, RESTING COMFORTABLY IN BED. RESPIRATIONS ARE EVN AND UNLABORED. DENIES NEEDS. NO S/S OF DISTRESS. NO C/O PAIN. CALL LIGHT WITHIN REACH. WILL CPOC.
[2018-11-17 20:00] VITALS: BP 113/61
--- NOTE | 2018-11-18 01:04 | NUR ---
RESUMING PATIENT CARE. PATIENT IS ALERT AND ORIENTED, RESTING COMFORTABLY IN BED. RESPIRATIONS ARE EVEN AND UNLABORED. DENIES NEEDS. NO S/S OF DISTRESS. NO C/O PAIN. CALL LIGHT WITHIN REACH. WILL CPOC.
[2018-11-18 04:00] VITALS: BP 116/60
[2018-11-18 05:05] LABS: HEMATOCRIT 28.5 % (42.0-54.0); HEMOGLOBIN 9.5 g/dL (13.5-17.5); MCH 30.7 pg (26.0-34.0); MCHC 33.3 g/dL (31.0-37.0); MCV 92.2 fL (80.0-100.0); MEAN PLATELET VOLUME 9.8 fL (7.4-10.4); RBC 3.09 10x6/uL (4.20-6.10); RDW 15.8 % (11.5-14.5); WBC 17.9 10x3/uL (4.8-10.8)
[2018-11-18 05:10] LABS: PLATELET COUNT 55 10x3/uL (130-400)
[2018-11-18 05:52] LABS: EOSINOPHILS 1 % (0-7); LYMPHOCYTES 95 % (15-50); MONOCYTES 1 % (2-11); NEUTROPHILS 3 % (40-80); PLATELET ESTIMATE DECREASED
--- NOTE | 2018-11-18 07:45 | NUR ---
AM ROUNDS COMPLETED. SHIFT ASSESSMENT COMPLETED NO CHANGES NOTED. PT IS SITTING UP IN BED WATCHING TV. A&O. PT STATES HE HAD A GOOD NIGHT. PT WAS JUST REPOSITIONED AND DENIES NEEDING TURNED AT THIS TIME. NO FAMILY PRESENT. CL IN REACH, BED IN LOWEST, SIDE RAILS X2 AND BUILT IN BED ALARM ON. WILL CTM.
[2018-11-18 08:16] LABS: ANION GAP 11.9 mmol/L (8-16); CALCIUM 8.1 mg/dL (8.5-10.1); CARBON DIOXIDE 26.8 mmol/L (21.0-32.0); CREATININE - SERUM 2.5 mg/dL (0.6-1.3); PHOSPHOROUS 5.3 mg/dL (2.5-4.9); POTASSIUM - SERUM 3.7 mmol/L (3.5-5.1)
[2018-11-18 09:18] VITALS: BP 121/67
--- NOTE | 2018-11-18 09:31 | NUR ---
ASSISTED PT IN FILLING OUT HIS DIET MENU. PT ATE BREAKFAST AND DID VERY WELL ON REGULAR DIET AND THIN LIQUIDS. NO S/S OF ASPIRATION NOTED. DIALYSIS CALLED FOR PT. BROUGHT PT DOWN VIA BED AT THIS TIME. NO CURRENT NEEDS WILL CTM.
--- NOTE | 2018-11-18 12:08 | NUR ---
Nutrition follow-up: Diet advanced to regular as tolerated with thin liquids PO intake ~50% average at meals Labs reviewed Wt: 260# +BM Will provide food choices and honor food preferences Will offer nutritional supplements RDN following.
[2018-11-18 13:12] VITALS: BP 123/71
--- NOTE | 2018-11-18 13:24 | NUR ---
PT BACK FROM DIALYSIS AND DOING WELL. PT DENIES ANY PAIN OR NEEDS. PT WAS ASSISTED WITH LUNCH AND ATE 50% AND VOICED THANKS STATING IT WAS GOOD. PT DENIES ANY CURRENT NEEDS AT THIS TIME. CL IN REACH, BED IN LOWEST, SIDE RAILS X2. WILL CTM.
--- NOTE | 2018-11-18 13:29 | MORECARE ---
CASE MANAGEMENT DISCHARGE SUMMARY PATIENT: PHIL BERMAN UNIT: [id number] ADM DATE: 10/16/18 AGE: 63 : 54 SEX: M ROOM/BED: D.2116 AUTHOR: JEWELS ESTRADA PHYSICIAN: REFERRING PHYSICIAN: DOMENICA BRYANT MD DATE OF SERVICE: 11/18/18 Discharge Plan Patient Name: PHIL BERMAN Facility: [facility]:[place] : 1955 Planned Disposition: Home with Hospice Anticipated Discharge Date: 11/19/18 Discharge Date: Expected LOS: 34 Initial Reviewer: [email or web address] Initial Review Date: 10/20/2018 Generated: 11/18/18 2:29 pm DCP- Discharge Planning Updated by [id number]: Randolph Ontiveros on 11/17/18 4:[address] Patient Name: PHIL BERMAN Encounter No: [id number] : 1955 Primary Insurance: MEDICAID [place] Anticipated DC Date: Planned Disposition: Home WITH HOME HEALTH External Planned Provider: TO BE DETERMINED DCP follow-up note: CM SPOKE TO DR. WYATT WHO INFORMED CM THAT SHE WILL SPEAK TO DR. CARVALHO REGARDING POSSIBLE HOSPICE FOR PT. CM LATER RECEIVED ORDER FOR INPATIENT REHAB PRESCREENING. CM REVIEWED CHART, PT HAS MEDICAID, IS DOING RANGE OF MOTION WITH THERAPY IN HOSPITAL. PT HAS BEEN IN THE HOSPITAL FOR OVER ONE MONTH. PT DOES NOT HAVE ACUTE DAYS AVAILABLE WITH MEDICAID FOR INPATIENT REHAB, PT COULD NOT TOLERATE THREE HOURS OF PROGRESSIVE THERAPY FOR INPATIENT REHAB, PT'S INSURANCE WILL NOT PAY FOR REHAB IN [facility], BUT WILL PAY FOR "RESTORATIVE" OR HAND SPRING FORMER CARE IN SKILLED NURSING. CM MET WITH PT IN ROOM, DISCUSSED ORDERS AND ABOVE INFORMATION. PT DOES NOT WANT TO GO LIVE IN A SKILLED NURSING. PT UNDERSTANDS HE DOES NOT HAVE INSURANCE NOW TO PAY FOR REHAB SERVICES BUT MAY HAVE MEDICARE IN THE FUTURE THEY OFFERED FOR HIM TO BUY INTO THE PROGRAM FOR A MONTHLY PAYMENT AND PT HAS PREVIOUSLY DECLINED. PT KNOWS WHAT HOSPICE HIS, BUT HAS NOT CONSIDERED THIS AT THIS TIME. PT REPORTS HE IS NOT GOING BACK TO HIS HOME, BUT GOING TO LIVE WITH HIS SON IN [place]. PT DIRECTED CM TO CALL HIS SON TO DISCUSS DISCHARGE PLANNING. CM CALLED HERVE BERMAN, SON, . HERVE REPORTS THAT PT IS NOT GOING TO A SKILLED NURSING. THEY WILL BE BRINING PT TO HERVE'S HOME AT [address] [place] [address]. THEY WILL NEED A BEDSIDE COMMODE AND SHOWER CHAIR AND WILL ALSO NEED HOME HEALTH TO ASSIST THEM WITH PT'S CARE IN THE HOME. CM DISCUSSED THAT PT IS CURRENTLY BED CONFINED, NOT DOING ANY BED MOBILITY AT ALL AND IS ONLY DOING RANGE OF MOTION WITH THERAPY. HERVE AGAIN REPORTS PT IS NOT GOING TO SKILLED NURSING AND THEY WILL TAKE CARE OF PT AT [facility] [place] WITH FAMILY ASSISTANCE. HERVE WILL ATTEMPT TO FIND OUT WHO PT'S PRIMARY CARE DOCTOR IS WELL MAKE DECISION ON HOME HEALTH COMPANY AND LET CM KNOW. PT'S SON PLANS FOR PT TO LIVE IN SON'S HOME AND FAMILY PLANS TO CARE FOR PT AT HOME. THEY REPORT TO NEED BEDSIDE COMMODE, SHOWER CHAIR AND HOME HEALTH. CM WAITING ON RETURN CALL FROM SON WITH PRIMARY DOCTOR NAME AND HOME HEALTH COMPANY PREFERENCE. CM WILL CONTINUE TO FOLLOW AND ASSIST NEEDED. Randolph Ontiveros. CASE MANAGEMENT DCP- Discharge Planning Updated by [id number]: Lily Moss on 11/14/18 3:[address] CM spoke with patient's son Herve Berman [phone]. Herve states that at this time he is planning on his father living with him upon discharge. Herve states that he is looking into private care in his home upon discharge. Herve states that he lives in [place], [place]. CM will notify Melissa Noel on plans for discharge since patient is new to dialysis. CM will continue to follow and assist as needed with discharge planning / needs. DCP- Discharge Planning Updated by [email or web address]: Lily Moss on 11/08/18 2:[address] CM missed physician today to get physician recertification statement signed. Placed form on front of patients chart and notified nursing. CM will continue to follow and assist as needed with discharge planning / needs. DCP- Discharge Planning Updated by [email or web address]: Iona Moses on 10/20/18 10:[address] Patient Name: PHIL BERMAN Admission Status: ER Accout number: [id number] Admission Date: 10-16-2018 : 04-20-1956 Admission Diagnosis:WEAKNESS Attending: DOMENICA BRYANT Current LOS: 4 Anticipated DC Date: Planned Disposition: Home Primary Insurance: MEDICAID [place] Discharge Planning Comments: CM met with patient to complete initial dc planning assessment. CM educated patient on the CM role and verbal consent given by patient to complete assessment. Patient lives at home alone in a camping trailer, address on face sheet verified. At discharge patient plans to return and feels this is a safe discharge. He states his friend Al and Cintia live on the same property and will check on him and take him home at discharge. CM discussed availability of home health, rehab services, and medical equipment. Patient denied known discharge needs at this time. I encouraged home health and he declines at this time. He also has a son that lives in [place], he states that he does not want to stay with his son. He declines to give me his son's number and states that Cintia can call him if needed. CM will continue to follow and will assist as needed with dc plans/needs. Transmissions Systems Operator: Iona Moses DCPIA - Discharge Planning Initial Assessment Updated by [id number]: Iona Moses on 10/20/18 11:19 am * Is the patient Alert and Oriented? Yes * How many steps to enter\\exit or inside your home? 08/12 * PCP Dr. Keagan Wesley * Pharmacy [facility] in [place] * Preadmission Environment Home Alone * ADLs Independent * Equipment Walker * List name and contact numbers for known caregivers / representatives who currently or will assist patient after discharge: Al and Cintia - [facility] - [phone] * Verbal permission to speak to the caregivers and representatives has been obtained from the patient. Yes * Community resources currently utilized None * Additional services required to return to the preadmission environment? Yes * Can the patient safely return to the preadmission environment? Yes * Has this patient been hospitalized within the prior 30 days at any hospital? No Last DP export: 11/17/18 4:16 pm Patient Name: PHIL BERMAN Page [phone] at 1329 All edits/amendments must be made on the electronic document DICTATION DATE: 11/18/188 MARKETING INSTRUCTOR: JAMI 11/18/181327 RPT#: [id number] [place] DATE: STATUS: ADM IN [facility] [address] [place] [address] END OF REPORT
--- NOTE | 2018-11-18 13:47 | MORECARE ---
CASE MANAGEMENT DISCHARGE SUMMARY PATIENT: PHIL BERMAN UNIT: [id number] ADM DATE: 10/16/18 AGE: 63 : 54 SEX: M ROOM/BED: D.2116 AUTHOR: JEWELS ESTRADA PHYSICIAN: REFERRING PHYSICIAN: DOMENICA BRYANT MD DATE OF SERVICE: 11/18/18 Discharge Plan Patient Name: PHIL BERMAN Facility: [facility]:[place] : 1955 Planned Disposition: Home with Hospice Anticipated Discharge Date: 11/19/18 Discharge Date: Expected LOS: 34 Initial Reviewer: [id number] Initial Review Date: 10/20/2018 Generated: 11/18/18 2:47 pm Comments DCP- Discharge Planning Updated by [email or web address]: Randolph Ontiveros on 11/18/18 12:[address] Patient Name: PHIL BERMAN Encounter No: [id number] : 1955 Primary Insurance: [place]ID [place] Anticipated DC Date: 11-19-2018 Planned Disposition: Home with Hospice External Planned Provider: TO BE DETERMINED DCP follow-up note: CM SPOKE TO BEDSIDE NURSE WHO ADVISED THAT DR. WYATT AGREES WITH HOSPICE AND PT IS NOT A CANDIDATE FOR CHEMOTHERAPY. CM CALLED PT'S SON, HERVE BERMAN, , DISCUSSED OPTIONS. HERVE HAS NOT CHANGED HIS MIND ABOUT NO NURSING FACLITY, CONTINUES TO REPORT PLAN FOR PT TO COME TO SON'S HOME IN [place]; HERVE HAS NOT MADE A DECISION REGARDING HOSPICE AND WOULD LIKE TO TALK TO HIS AND BOSS REGARDING HOSPICE. CM OFFERED TO ASSIST WITH FINDING HOSPICE PROVIDERS AVAILABLE TO COVER [place] AREA. HERVE AGREED TO ASSISTANCE. CM CALLED AND FOUND FOUR HOSPICE PROVIDERS AVAILABLE: [facility], [facility]ICE [facility], [facility]ICE [facility], ([phone]) [facility], . CM CALLED HERVE BERMAN, SON, , NOTIFIED OF AVAILABLE HOSPICE PROVIDERS. HERVE WILL CONSIDER HOSPICE OPTIONS AND CALL CM WHEN HE MAKES THE DECISION, HOPES TO MAKE DECISION SOMETIME LATER TODAY. Randolph Ontiveros DCP- Discharge Planning Updated by [id number]: Randolph Rama on 11/17/18 4:[address] Patient Name: PHIL BERMAN Encounter No: [id number] : 1955 Primary Insurance: [place]ID [place] Anticipated DC Date: Planned Disposition: Home WITH HOME HEALTH External Planned Provider: TO BE DETERMINED DCP follow-up note: CM SPOKE TO DR. WYATT WHO INFORMED CM THAT SHE WILL SPEAK TO DR. CARVALHO REGARDING POSSIBLE HOSPICE FOR PT. CM LATER RECEIVED ORDER FOR INPATIENT REHAB PRESCREENING. CM REVIEWED CHART, PT HAS MEDICAID, IS DOING RANGE OF MOTION WITH THERAPY IN HOSPITAL. PT HAS BEEN IN THE HOSPITAL FOR OVER ONE MONTH. PT DOES NOT HAVE ACUTE DAYS AVAILABLE WITH MEDICAID FOR INPATIENT REHAB, PT COULD NOT TOLERATE THREE HOURS OF PROGRESSIVE THERAPY FOR INPATIENT REHAB, PT'S INSURANCE WILL NOT PAY FOR REHAB IN [facility], BUT WILL PAY FOR "RESTORATIVE" OR INTERMEDIATE CARE IN ASSISTED. CM MET WITH PT IN ROOM, DISCUSSED ORDERS AND ABOVE INFORMATION. PT DOES NOT WANT TO GO LIVE IN A ASSISTED. PT UNDERSTANDS HE DOES NOT HAVE INSURANCE NOW TO PAY FOR REHAB SERVICES BUT MAY HAVE MEDICARE IN THE FUTURE THEY OFFERED FOR HIM TO BUY INTO THE PROGRAM FOR A MONTHLY PAYMENT AND PT HAS PREVIOUSLY DECLINED. PT KNOWS WHAT HOSPICE HIS, BUT HAS NOT CONSIDERED THIS AT THIS TIME. PT REPORTS HE IS NOT GOING BACK TO HIS HOME, BUT GOING TO LIVE WITH HIS SON IN [place]. PT DIRECTED CM TO CALL HIS SON TO DISCUSS DISCHARGE PLANNING. CM CALLED HERVE BERMAN, SON, . HERVE REPORTS THAT PT IS NOT GOING TO A ASSISTED. THEY WILL BE BRINING PT TO HERVE'S HOME AT [address] [place] [address]. THEY WILL NEED A BEDSIDE COMMODE AND SHOWER CHAIR AND WILL ALSO NEED HOME HEALTH TO ASSIST THEM WITH PT'S CARE IN THE HOME. CM DISCUSSED THAT PT IS CURRENTLY BED CONFINED, NOT DOING ANY BED MOBILITY AT ALL AND IS ONLY DOING RANGE OF MOTION WITH THERAPY. HERVE AGAIN REPORTS PT IS NOT GOING TO ASSISTED AND THEY WILL TAKE CARE OF PT AT [facility] WITH FAMILY ASSISTANCE. HERVE WILL ATTEMPT TO FIND OUT WHO PT'S PRIMARY CARE DOCTOR IS WELL MAKE DECISION ON HOME HEALTH COMPANY AND LET CM KNOW. PT'S SON PLANS FOR PT TO LIVE IN SON'S HOME AND FAMILY PLANS TO CARE FOR PT AT HOME. THEY REPORT TO NEED BEDSIDE COMMODE, SHOWER CHAIR AND HOME HEALTH. CM WAITING ON RETURN CALL FROM SON WITH PRIMARY DOCTOR NAME AND HOME HEALTH COMPANY PREFERENCE. CM WILL CONTINUE TO FOLLOW AND ASSIST NEEDED. Randolph Ontiveros. CASE MANAGEMENT DCP- Discharge Planning Updated by [email or web address]: Lily Isa on 11/14/18 3:[address] CM spoke with patient's son Herve Berman [phone]. Herve states that at this time he is planning on his father living with him upon discharge. Herve states that he is looking into private care in his home upon discharge. Herve states that he lives in [place], [place]. CM will notify Melissa Noel on plans for discharge since patient is new to dialysis. CM will continue to follow and assist as needed with discharge planning / needs. DCP- Discharge Planning Updated by [id number]: Lily Moss on 11/08/18 2:[address] CM missed physician today to get physician recertification statement signed. Placed form on front of patients chart and notified nursing. CM will continue to follow and assist as needed with discharge planning / needs. DCP- Discharge Planning Updated by [id number]: Iona Moses on 10/20/18 10:[address] Patient Name: PHIL BERMAN Admission Status: ER Accout number: [id number] Admission Date: 10-16-2018 : 1955 Admission Diagnosis:WEAKNESS Attending: DOMENICA BRYANT Current LOS: 4 Anticipated DC Date: Planned Disposition: Home Primary Insurance: MEDICAID [place] Discharge Planning Comments: CM met with patient to complete initial dc planning assessment. CM educated patient on the CM role and verbal consent given by patient to complete assessment. Patient lives at home alone in a camping trailer, address on face sheet verified. At discharge patient plans to return and feels this is a safe discharge. He states his friend Al and Cintia live on the same property and will check on him and take him home at discharge. CM discussed availability of home health, rehab services, and medical equipment. Patient denied known discharge needs at this time. I encouraged home health and he declines at this time. He also has a son that lives in [place], he states that he does not want to stay with his son. He declines to give me his son's number and states that Cintia can call him if needed. CM will continue to follow and will assist as needed with dc plans/needs. Burr Bench Operator: Iona Aurelia DCPIA - Discharge Planning Initial Assessment Updated by [id number]: Iona Mejíadavid on 10/20/18 11:19 am * Is the patient Alert and Oriented? Yes * How many steps to enter\\exit or inside your home? 08/12 * PCP Dr. Keagan Wesley * Pharmacy [facility] in [place] * Preadmission Environment Home Alone * ADLs Independent * Equipment Walker * List name and contact numbers for known caregivers / representatives who currently or will assist patient after discharge: Fabio - [facility] - [phone] * Verbal permission to speak to the caregivers and representatives has been obtained from the patient. Yes * Community resources currently utilized None * Additional services required to return to the preadmission environment? Yes * Can the patient safely return to the preadmission environment? Yes * Has this patient been hospitalized within the prior 30 days at any hospital? No Last DP export: 11/18/18 12:29 pm Patient Name: PHIL BERMAN Page [id number] at 1347 All edits/amendments must be made on the electronic document DICTATION DATE: 11/18/18 1347 AGRICULTURAL EXTENSION AGENT: JAMI 11/18/18 1347 RPT#: [id number] DC DATE: STATUS: ADM IN [facility] [address] [place] [address] END OF REPORT
--- NOTE | 2018-11-18 13:56 | MORECARE ---
CASE MANAGEMENT DISCHARGE SUMMARY PATIENT: PHIL BERMAN UNIT: [id number] ADM DATE: 10/16/18 AGE: 63 : 54 SEX: M ROOM/BED: D.2116 AUTHOR: JEWELS ESTRADA PHYSICIAN: REFERRING PHYSICIAN: DOMENICA BRYANT MD DATE OF SERVICE: 11/18/18 Discharge Plan Patient Name: PHIL BERMAN Facility: [facility]:[place] : 1955 Planned Disposition: Home with Hospice Anticipated Discharge Date: 11/19/18 Discharge Date: Expected LOS: 34 Initial Reviewer: [id number] Initial Review Date: 10/20/2018 Generated: 11/18/18 2:55 pm Comments DCP- Discharge Planning Updated by [id number]: Randolph Ontiveros on 11/18/18 12:[address] Patient Name: PHIL BERMAN Encounter No: [id number] : 1955 Primary Insurance: MEDICAID [place] Anticipated DC Date: 11-19-2018 Planned Disposition: Home with Hospice External Planned Provider: TO BE DETERMINED DCP follow-up note: CM SPOKE TO BEDSIDE NURSE WHO ADVISED THAT DR. WYATT AGREES WITH HOSPICE AND PT IS NOT A CANDIDATE FOR CHEMOTHERAPY. CM CALLED PT'S SON, HERVE BERMAN, , DISCUSSED OPTIONS. HERVE HAS NOT CHANGED HIS MIND ABOUT NO NURSING FACLITY, CONTINUES TO REPORT PLAN FOR PT TO COME TO SON'S HOME IN [place]; HERVE HAS NOT MADE A DECISION REGARDING HOSPICE AND WOULD LIKE TO TALK TO HIS AND BOSS REGARDING HOSPICE. CM OFFERED TO ASSIST WITH FINDING HOSPICE PROVIDERS AVAILABLE TO COVER [place] AREA. HERVE AGREED TO ASSISTANCE. CM CALLED AND FOUND FOUR HOSPICE PROVIDERS AVAILABLE: [facility], H[facility]PICE [facility], [facility]ICE [facility], ([phone]) [facility], . CM CALLED HERVE BERMAN, SON, , NOTIFIED OF AVAILABLE HOSPICE PROVIDERS. HERVE WILL CONSIDER HOSPICE OPTIONS AND CALL CM WHEN HE MAKES THE DECISION, HOPES TO MAKE DECISION SOMETIME LATER TODAY. DISCHARGE ADDRESS WILL BE WITH HERVE BERMAN,SON, AT [address] [place] [address]. CM WAITING SON'S DECISION REGARDING HOSPICE AND HOSPICE PROVIDER. Randolph Ontiveros, CASE MANAGEMENT DCP- Discharge Planning Updated by [email or web address]: Randolph Ontiveros on 11/17/18 4:[address] Patient Name: PHIL BERMAN Encounter No: [id number] : 1955 Primary Insurance: MEDICAID [place] Anticipated DC Date: Planned Disposition: Home WITH HOME HEALTH External Planned Provider: TO BE DETERMINED DCP follow-up note: CM SPOKE TO DR. WYATT WHO INFORMED CM THAT SHE WILL SPEAK TO DR. CARVALHO REGARDING POSSIBLE HOSPICE FOR PT. CM LATER RECEIVED ORDER FOR INPATIENT REHAB PRESCREENING. CM REVIEWED CHART, PT HAS MEDICAID, IS DOING RANGE OF MOTION WITH THERAPY IN HOSPITAL. PT HAS BEEN IN THE HOSPITAL FOR OVER ONE MONTH. PT DOES NOT HAVE ACUTE DAYS AVAILABLE WITH MEDICAID FOR INPATIENT REHAB, PT COULD NOT TOLERATE THREE HOURS OF PROGRESSIVE THERAPY FOR INPATIENT REHAB, PT'S INSURANCE WILL NOT PAY FOR REHAB IN [facility] CARE FACILITY, BUT WILL PAY FOR "RESTORATIVE" OR CORRECTION CARE IN [facility]. CM MET WITH PT IN ROOM, DISCUSSED ORDERS AND ABOVE INFORMATION. PT DOES NOT WANT TO GO LIVE IN A [facility]. PT UNDERSTANDS HE DOES NOT HAVE INSURANCE NOW TO PAY FOR REHAB SERVICES BUT MAY HAVE MEDICARE IN THE FUTURE THEY OFFERED FOR HIM TO BUY INTO THE PROGRAM FOR A MONTHLY PAYMENT AND PT HAS PREVIOUSLY DECLINED. PT KNOWS WHAT HOSPICE HIS, BUT HAS NOT CONSIDERED THIS AT THIS TIME. PT REPORTS HE IS NOT GOING BACK TO HIS HOME, BUT GOING TO LIVE WITH HIS SON IN [place]. PT DIRECTED CM TO CALL HIS SON TO DISCUSS DISCHARGE PLANNING. CM CALLED HERVE BERMAN, SON, . HERVE REPORTS THAT PT IS NOT GOING TO A [facility]. THEY WILL BE BRINING PT TO HERVE'S HOME AT [address] [place] [address]. THEY WILL NEED A BEDSIDE COMMODE AND SHOWER CHAIR AND WILL ALSO NEED HOME HEALTH TO ASSIST THEM WITH PT'S CARE IN THE HOME. CM DISCUSSED THAT PT IS CURRENTLY BED CONFINED, NOT DOING ANY BED MOBILITY AT ALL AND IS ONLY DOING RANGE OF MOTION WITH THERAPY. HERVE AGAIN REPORTS PT IS NOT GOING TO [facility] AND THEY WILL TAKE CARE OF PT AT [facility] WITH FAMILY ASSISTANCE. HERVE WILL ATTEMPT TO FIND OUT WHO PT'S PRIMARY CARE DOCTOR IS WELL MAKE DECISION ON HOME HEALTH COMPANY AND LET CM KNOW. PT'S SON PLANS FOR PT TO LIVE IN SON'S HOME AND FAMILY PLANS TO CARE FOR PT AT HOME. THEY REPORT TO NEED BEDSIDE COMMODE, SHOWER CHAIR AND HOME HEALTH. CM WAITING ON RETURN CALL FROM SON WITH PRIMARY DOCTOR NAME AND HOME HEALTH COMPANY PREFERENCE. CM WILL CONTINUE TO FOLLOW AND ASSIST NEEDED. Randolph Ontiveros. CASE MANAGEMENT DCP- Discharge Planning Updated by [email or web address]: Lily Moss on 11/14/18 3:[address] CM spoke with patient's son Herve Berman [phone]. Herve states that at this time he is planning on his father living with him upon discharge. Herve states that he is looking into private care in his home upon discharge. Herve states that he lives in [place], [place]. CM will notify Melissa Noel on plans for discharge since patient is new to dialysis. CM will continue to follow and assist as needed with discharge planning / needs. DCP- Discharge Planning Updated by [email or web address]: Lily Moss on 11/08/18 2:[address] CM missed physician today to get physician recertification statement signed. Placed form on front of patients chart and notified nursing. CM will continue to follow and assist as needed with discharge planning / needs. DCP- Discharge Planning Updated by [email or web address]: Iona Moses on 10/20/18 10:[address] Patient Name: PHIL BERMAN Admission Status: ER Accout number: [id number] Admission Date: 10-16-2018 : 1955 Admission Diagnosis:WEAKNESS Attending: DOMENICA BRYANT Current LOS: 4 Anticipated DC Date: Planned Disposition: Home Primary Insurance: MEDICAID [place] Discharge Planning Comments: CM met with patient to complete initial dc planning assessment. CM educated patient on the CM role and verbal consent given by patient to complete assessment. Patient lives at home alone in a camping trailer, address on face sheet verified. At discharge patient plans to return and feels this is a safe discharge. He states his friend Al and Cintia live on the same property and will check on him and take him home at discharge. CM discussed availability of home health, rehab services, and medical equipment. Patient denied known discharge needs at this time. I encouraged home health and he declines at this time. He also has a son that lives in [place], he states that he does not want to stay with his son. He declines to give me his son's number and states that Cintia can call him if needed. CM will continue to follow and will assist as needed with dc plans/needs. Quarter Inspector: Iona Moses DCPIA - Discharge Planning Initial Assessment Updated by [id number]: Iona Aurelia on 10/20/18 11:19 am * Is the patient Alert and Oriented? Yes * How many steps to enter\\exit or inside your home? 08/12 * PCP Dr. Keagan Wesley * Pharmacy [facility] in [place] * Preadmission Environment Home Alone * ADLs Independent * Equipment Walker * List name and contact numbers for known caregivers / representatives who currently or will assist patient after discharge: Fabio [facility] - [phone] * Verbal permission to speak to the caregivers and representatives has been obtained from the patient. Yes * Community resources currently utilized None * Additional services required to return to the preadmission environment? Yes * Can the patient safely return to the preadmission environment? Yes * Has this patient been hospitalized within the prior 30 days at any hospital? No Last DP export: 11/18/18 12:47 pm Patient Name: PHIL BERMAN Page [phone] at 1356 All edits/amendments must be made on the electronic document DICTATION DATE: 11/18/18 1354 CUPOLA LINER HELPER: JAMI 11/18/18 1359 RPT#: [id number] DC DATE: STATUS: ADM IN [facility] [address] [place] [address] END OF REPORT
--- NOTE | 2018-11-18 16:30 | NUR ---
PT REC'D COMPLETE LINEN CHANGE AND BED BATH AND C/O HIS R.SHOULDER AND R.WRIST NOW HURTING. PT REQUESTING PRN PAIN MEDICATION AND WAS PROVIDED WITH IT. PT IS NOW REPOSITIONED AND STATES HE IS COMFORTABLE, WAITING ON DINNER TRAY. NO CURRENT NEEDS. WILL CTM.
[2018-11-18 17:11] VITALS: BP 128/76
--- NOTE | 2018-11-18 17:16 | MORECARE ---
CASE MANAGEMENT DISCHARGE SUMMARY PATIENT: PHIL BERMAN UNIT: [id number] ADM DATE: 10/16/18 AGE: 63 : 54 SEX: M ROOM/BED: D.2116 AUTHOR: JEWELS ESTRADA PHYSICIAN: REFERRING PHYSICIAN: DOMENICA BRYANT MD DATE OF SERVICE: 11/18/18 Discharge Plan Patient Name: PHIL BERMAN Facility: [facility]:[place] : 1955 Planned Disposition: Home with Hospice Anticipated Discharge Date: 11/19/18 Discharge Date: Expected LOS: 34 Initial Reviewer: [email or web address] Initial Review Date: 10/20/2018 Generated: 11/18/18 6:16 pm Comments DCP- Discharge Planning Updated by [id number]: Tricia Styles on 11/18/18 4:[address] Patient Name: PHIL BERMAN Encounter No: [id number] : 1955 Primary Insurance: MEDICAID [place] Anticipated DC Date: 11-19-2018 Planned Disposition: Home with Hospice External Planned Provider: TO BE DETERMINED DCP follow-up note: CM SPOKE TO BEDSIDE NURSE WHO ADVISED THAT DR. WYATT AGREES WITH HOSPICE AND PT IS NOT A CANDIDATE FOR CHEMOTHERAPY. CM CALLED PT'S SON, HERVE BERMAN, , DISCUSSED OPTIONS. HERVE HAS NOT CHANGED HIS MIND ABOUT NO NURSING FACLITY, CONTINUES TO REPORT PLAN FOR PT TO COME TO SON'S HOME IN [place]; HERVE HAS NOT MADE A DECISION REGARDING HOSPICE AND WOULD LIKE TO TALK TO HIS AND BOSS REGARDING HOSPICE. CM OFFERED TO ASSIST WITH FINDING HOSPICE PROVIDERS AVAILABLE TO COVER [place] AREA. HERVE AGREED TO ASSISTANCE. CM CALLED AND FOUND FOUR HOSPICE PROVIDERS AVAILABLE: [facility], H[facility]ICE [facility], HOSPICE [facility]ARE, ([phone]) [facility], . CM CALLED HERVE BERMAN, SON, , NOTIFIED OF AVAILABLE HOSPICE PROVIDERS. HERVE WILL CONSIDER HOSPICE OPTIONS AND CALL CM WHEN HE MAKES THE DECISION, HOPES TO MAKE DECISION SOMETIME LATER TODAY. DISCHARGE ADDRESS WILL BE WITH HERVE BERMAN,[place], AT [address], [place], [place]. CM WAITING SON'S DECISION REGARDING HOSPICE AND HOSPICE PROVIDER. Tricia Styles, CASE MANAGEMENT Appended by Tricia Styles on 11/18/2018 17:16 CDT: CM RECEIVED CALL FROM HERVE BERMAN, SON, , REQUESTED [facility] CALL[facility] FOR HOME HOSPICE EVALUATION AND ARRANGEMENTS. CM COMPLETED CHOICE LETTER FOR [facility]. CM CALLED [facility], , SPOKE TO ANSWERING SERVICE AND SHOULD RECEIVE RETURN CALL FROM INSTRUCTOR GROUND SERVICES NURSE, DARRELL HIGGINS. TRICIA STYLES, CASE MANAGEMENT DCP- Discharge Planning Updated by [id number]: Tricia Styles on 11/17/18 4:[address] Patient Name: PHIL BERMAN Encounter No: [id number] : 1955 Primary Insurance: MEDICAID [place] Anticipated DC Date: Planned Disposition: Home WITH HOME HEALTH External Planned Provider: TO BE DETERMINED DCP follow-up note: CM SPOKE TO DR. WYATT WHO INFORMED CM THAT SHE WILL SPEAK TO DR. CARVALHO REGARDING POSSIBLE HOSPICE FOR PT. CM LATER RECEIVED ORDER FOR INPATIENT REHAB PRESCREENING. CM REVIEWED CHART, PT HAS MEDICAID, IS DOING RANGE OF MOTION WITH THERAPY IN HOSPITAL. PT HAS BEEN IN THE HOSPITAL FOR OVER ONE MONTH. PT DOES NOT HAVE ACUTE DAYS AVAILABLE WITH MEDICAID FOR INPATIENT REHAB, PT COULD NOT TOLERATE THREE HOURS OF PROGRESSIVE THERAPY FOR INPATIENT REHAB, PT'S INSURANCE WILL NOT PAY FOR REHAB IN ASSISTED FACILITY, BUT WILL PAY FOR "RESTORATIVE" OR MOBILE SALES CONSULTANT CARE IN SENIOR LIVING. CM MET WITH PT IN ROOM, DISCUSSED ORDERS AND ABOVE INFORMATION. PT DOES NOT WANT TO GO LIVE IN A SENIOR LIVING. PT UNDERSTANDS HE DOES NOT HAVE INSURANCE NOW TO PAY FOR REHAB SERVICES BUT MAY HAVE MEDICARE IN THE FUTURE THEY OFFERED FOR HIM TO BUY INTO THE PROGRAM FOR A MONTHLY PAYMENT AND PT HAS PREVIOUSLY DECLINED. PT KNOWS WHAT HOSPICE HIS, BUT HAS NOT CONSIDERED THIS AT THIS TIME. PT REPORTS HE IS NOT GOING BACK TO HIS HOME, BUT GOING TO LIVE WITH HIS SON IN [place]. PT DIRECTED CM TO CALL HIS SON TO DISCUSS DISCHARGE PLANNING. CM CALLED HERVE BERMAN, SON, . HERVE REPORTS THAT PT IS NOT GOING TO A SENIOR LIVING. THEY WILL BE BRINING PT TO HERVE'S HOME AT [address] [place] [address]. THEY WILL NEED A BEDSIDE COMMODE AND SHOWER CHAIR AND WILL ALSO NEED HOME HEALTH TO ASSIST THEM WITH PT'S CARE IN THE HOME. CM DISCUSSED THAT PT IS CURRENTLY BED CONFINED, NOT DOING ANY BED MOBILITY AT ALL AND IS ONLY DOING RANGE OF MOTION WITH THERAPY. HERVE AGAIN REPORTS PT IS NOT GOING TO SENIOR LIVING AND THEY WILL TAKE CARE OF PT AT [facility] WITH FAMILY ASSISTANCE. HERVE WILL ATTEMPT TO FIND OUT WHO PT'S PRIMARY CARE DOCTOR IS WELL MAKE DECISION ON HOME HEALTH COMPANY AND LET CM KNOW. PT'S SON PLANS FOR PT TO LIVE IN SON'S HOME AND FAMILY PLANS TO CARE FOR PT AT HOME. THEY REPORT TO NEED BEDSIDE COMMODE, SHOWER CHAIR AND HOME HEALTH. CM WAITING ON RETURN CALL FROM SON WITH PRIMARY DOCTOR NAME AND HOME HEALTH COMPANY PREFERENCE. CM WILL CONTINUE TO FOLLOW AND ASSIST NEEDED. Tricia Styles. CASE MANAGEMENT DCP- Discharge Planning Updated by [id number]: Lily Moss on 11/14/18 3:[address] CM spoke with patient's son Herve Berman [phone]. Herve states that at this time he is planning on his father living with him upon discharge. Herve states that he is looking into private care in his home upon discharge. Herve states that he lives in [place], [place]. CM will notify Melissa Noel on plans for discharge since patient is new to dialysis. CM will continue to follow and assist as needed with discharge planning / needs. DCP- Discharge Planning Updated by [id number]: Lliy Moss on 11/08/18 2:[address] CM missed physician today to get physician recertification statement signed. Placed form on front of patients chart and notified nursing. CM will continue to follow and assist as needed with discharge planning / needs. DCP- Discharge Planning Updated by [email or web address]: Iona Moses on 10/20/18 10:[address] Patient Name: PHIL BERMAN Admission Status: ER Accout number: [id number] Admission Date: 10-16-2018 : 1955 Admission Diagnosis:WEAKNESS Attending: DOMENICA BRYANT Current LOS: 4 Anticipated DC Date: Planned Disposition: Home Primary Insurance: MEDICAID [place] Discharge Planning Comments: CM met with patient to complete initial dc planning assessment. CM educated patient on the CM role and verbal consent given by patient to complete assessment. Patient lives at home alone in a camping trailer, address on face sheet verified. At discharge patient plans to return and feels this is a safe discharge. He states his friend Al and Cintia live on the same property and will check on him and take him home at discharge. CM discussed availability of home health, rehab services, and medical equipment. Patient denied known discharge needs at this time. I encouraged home health and he declines at this time. He also has a son that lives in [place], he states that he does not want to stay with his son. He declines to give me his son's number and states that Cintia can call him if needed. CM will continue to follow and will assist as needed with dc plans/needs. Senior Process Engineer: Iona Moses DCPIA - Discharge Planning Initial Assessment Updated by [email or web address]: Iona Moses on 10/20/18 11:19 am * Is the patient Alert and Oriented? Yes * How many steps to enter\\exit or inside your home? 08/12 * PCP Dr. Keagan Wesley * Pharmacy [facility] in [place] * Preadmission Environment Home Alone * ADLs Independent * Equipment Walker * List name and contact numbers for known caregivers / representatives who currently or will assist patient after discharge: Al and Cintia - friends - [phone] * Verbal permission to speak to the caregivers and representatives has been obtained from the patient. Yes * Community resources currently utilized None * Additional services required to return to the preadmission environment? Yes * Can the patient safely return to the preadmission environment? Yes * Has this patient been hospitalized within the prior 30 days at any hospital? No Last DP export: 11/18/18 12:55 pm Patient Name: PHIL BERMAN Page [id number] at 1716 All edits/amendments must be made on the electronic document DICTATION DATE: 11/18/181715 SENIOR ENGINEERING SPECIALIST: JAMI 11/18/181715 RPT#: [id number] DC DATE: STATUS: ADM IN [facility] [address] [place] [address] END OF REPORT
--- NOTE | 2018-11-18 19:32 | MORECARE ---
CASE MANAGEMENT DISCHARGE SUMMARY PATIENT: PHIL BERMAN UNIT: [id number] ADM DATE: 10/16/18 AGE: 63 : 53 SEX: M ROOM/BED: D.2116 AUTHOR: NATALIE,DOC PHYSICIAN: REFERRING PHYSICIAN: DOMENICA BRYANT MD DATE OF SERVICE: 11/18/18 Discharge Plan Patient Name: PHIL BERMAN Facility: [facility]:[place] : 1955 Planned Disposition: Home with Hospice Anticipated Discharge Date: 11/19/18 Discharge Date: Expected LOS: 34 Initial Reviewer: [email or web address] Initial Review Date: 10/20/2018 Generated: 11/18/18 8:32 pm Comments DCP- Discharge Planning Updated by [id number]: Nirmala Spangler on 11/18/18 5:[address] CM faxed referral to [phone] and obtained order for Hospice. Rama CANO spoke to Sharlene [facility] out of [place] and notified her of the referral and provided the needed information. CM will notify [facility] when the patient is discharged. Nirmala Spangler RN, [facility] DCP- Discharge Planning Updated by [id number]: Tricia Ontiveros on 11/18/18 4:[address] Patient Name: PHIL BERMAN Encounter No: [id number] : 1955 Primary Insurance: MEDICAID [place] Anticipated DC Date: 11-19-2018 Planned Disposition: Home with Hospice External Planned Provider: TO BE DETERMINED DCP follow-up note: JEROME SPOKE TO BEDSIDE NURSE WHO ADVISED THAT DR. WYATT AGREES WITH HOSPICE AND PT IS NOT A CANDIDATE FOR CHEMOTHERAPY. CM CALLED PT'S SON, HERVE BERMAN, , DISCUSSED OPTIONS. HERVE HAS NOT CHANGED HIS MIND ABOUT NO NURSING FACLITY, CONTINUES TO REPORT PLAN FOR PT TO COME TO SON'S HOME IN [place]; HERVE HAS NOT MADE A DECISION REGARDING HOSPICE AND WOULD LIKE TO TALK TO HIS AND BOSS REGARDING HOSPICE. CM OFFERED TO ASSIST WITH FINDING HOSPICE PROVIDERS AVAILABLE TO [place]OVER [place]. HERVE AGREED TO ASSISTANCE. CM CALLED AND FOUND FOUR HOSPICE PROVIDERS AVAILABLE: [facility], [facility], [facility], [phone]) [facility], . CM CALLED [facility], , NOTIFIED OF AVAILABLE HOSPICE PROVIDERS. HERVE WILL CONSIDER HOSPICE OPTIONS AND CALL CM WHEN HE MAKES THE DECISION, HOPES TO MAKE DECISION SOMETIME LATER TODAY. DISCHARGE ADDRESS WILL BE WITH [facility], AT [address] [place] [address]. CM WAITING SON'S DECISION REGARDING HOSPICE AND HOSPICE PROVIDER. Tricia Ontiveros, CASE MANAGEMENT Appended by Tricia Ontiveros on 11/18/2018 17:16 CDT: CM RECEIVED CALL FROM HERVE BERMAN SON, , REQUESTED [facility] CALLED FOR HOME HOSPICE EVALUATION AND ARRANGEMENTS. CM COMPLETED CHOICE LETTER FOR [facility]. CM CALLED [facility], , SPOKE TO ANSWERING SERVICE AND SHOULD RECEIVE RETURN CALL FROM AUTOMATIC GLUING MACHINE OPERATOR NURSE, DARRELL HIGGINS. TRICIA ONTIVEROS, CASE MANAGEMENT DCP- Discharge Planning Updated by [email or web address]: Tricia Ontiveros on 11/17/18 4:[address] Patient Name: PHIL BERMAN Encounter No: [id number] : 1955 Primary Insurance: MED[place]ID [place] Anticipated DC Date: Planned Disposition: Home WITH HOME HEALTH External Planned Provider: TO BE DETERMINED DCP follow-up note: CM SPOKE TO DR. WYTAT WHO INFORMED CM THAT SHE WILL SPEAK TO DR. CARVALHO REGARDING POSSIBLE HOSPICE FOR PT. CM LATER RECEIVED ORDER FOR INPATIENT REHAB PRESCREENING. CM REVIEWED CHART, PT HAS MEDICAID, IS DOING RANGE OF MOTION WITH THERAPY IN HOSPITAL. PT HAS BEEN IN THE HOSPITAL FOR OVER ONE MONTH. PT DOES NOT HAVE ACUTE DAYS AVAILABLE WITH MEDICAID FOR INPATIENT REHAB, PT COULD NOT TOLERATE THREE HOURS OF PROGRESSIVE THERAPY FOR INPATIENT REHAB, PT'S INSURANCE WILL NOT PAY FOR REHAB IN CUSTODIAL FACILITY, BUT WILL PAY FOR "RESTORATIVE" OR TABLE HAND CARE IN [facility]. CM MET WITH PT IN ROOM, DISCUSSED ORDERS AND ABOVE INFORMATION. PT DOES NOT WANT TO GO LIVE IN A [facility]. PT UNDERSTANDS HE DOES NOT HAVE INSURANCE NOW TO PAY FOR REHAB SERVICES BUT MAY HAVE MEDICARE IN THE FUTURE THEY OFFERED FOR HIM TO BUY INTO THE PROGRAM FOR A MONTHLY PAYMENT AND PT HAS PREVIOUSLY DECLINED. PT KNOWS WHAT HOSPICE HIS, BUT HAS NOT CONSIDERED THIS AT THIS TIME. PT REPORTS HE IS NOT GOING BACK TO HIS HOME, BUT GOING TO LIVE WITH HIS SON IN [place]. PT DIRECTED CM TO CALL HIS SON TO DISCUSS DISCHARGE PLANNING. CM CALLED HERVE BERMAN, SON, . HERVE REPORTS THAT PT IS NOT GOING TO A [facility]. THEY WILL BE BRINING PT TO HERVE'S HOME AT [address] [place] [address]. THEY WILL NEED A BEDSIDE COMMODE AND SHOWER CHAIR AND WILL ALSO NEED HOME HEALTH TO ASSIST THEM WITH PT'S CARE IN THE HOME. CM DISCUSSED THAT PT IS CURRENTLY BED CONFINED, NOT DOING ANY BED MOBILITY AT ALL AND IS ONLY DOING RANGE OF MOTION WITH THERAPY. HERVE AGAIN REPORTS PT IS NOT GOING TO [facility] AND THEY WILL TAKE CARE OF PT AT [facility] WITH FAMILY ASSISTANCE. HERVE WILL ATTEMPT TO FIND OUT WHO PT'S PRIMARY CARE DOCTOR IS WELL MAKE DECISION ON HOME HEALTH COMPANY AND LET CM KNOW. PT'S SON PLANS FOR PT TO LIVE IN SON'S HOME AND FAMILY PLANS TO CARE FOR PT AT HOME. THEY REPORT TO NEED BEDSIDE COMMODE, SHOWER CHAIR AND HOME HEALTH. CM WAITING ON RETURN CALL FROM SON WITH PRIMARY DOCTOR NAME AND HOME HEALTH COMPANY PREFERENCE. CM WILL CONTINUE TO FOLLOW AND ASSIST NEEDED. Tricia Ontiveros. CASE MANAGEMENT DCP- Discharge Planning Updated by [id number]: Lily Moss on 11/14/18 3:[address] CM spoke with patient's son Herve Berman [phone]. Herve states that at this time he is planning on his father living with him upon discharge. Herve states that he is looking into private care in his home upon discharge. Herve states that he lives in [place], [place]. CM will notify Melissa Noel on plans for discharge since patient is new to dialysis. CM will continue to follow and assist as needed with discharge planning / needs. DCP- Discharge Planning Updated by [email or web address]: Lily Moss on 11/08/18 2:[address] CM missed physician today to get physician recertification statement signed. Placed form on front of patients chart and notified nursing. CM will continue to follow and assist as needed with discharge planning / needs. DCP- Discharge Planning Updated by [email or web address]: Iona Mejíadavid on 10/20/18 10:[address] Patient Name: PIHL BERMAN Admission Status: ER Accout number: [id number] Admission Date: 10-16-2018 : 1955 Admission Diagnosis:WEAKNESS Attending: DOMENICA BRYANT Current LOS: 4 Anticipated DC Date: Planned Disposition: Home Primary Insurance: MEDICAID [place] Discharge Planning Comments: CM met with patient to complete initial dc planning assessment. CM educated patient on the CM role and verbal consent given by patient to complete assessment. Patient lives at home alone in a [place] trailer, address on face sheet verified. At discharge patient plans to return and feels this is a safe discharge. He states his friend Al and Cintia live on the same property and will check on him and take him home at discharge. CM discussed availability of home health, rehab services, and medical equipment. Patient denied known discharge needs at this time. I encouraged home health and he declines at this time. He also has a son that lives in [place], he states that he does not want to stay with his son. He declines to give me his son's number and states that Cintia can call him if needed. CM will continue to follow and will assist as needed with dc plans/needs. Well Cleaner: Iona Moses DCPIA - Discharge Planning Initial Assessment Updated by [id number]: Iona Moses on 10/20/18 11:19 am * Is the patient Alert and Oriented? Yes * How many steps to enter\\exit or inside your home? 08/12 * PCP Dr. Keagan Wesley * Pharmacy [facility] in [place] * Preadmission Environment Home Alone * ADLs Independent * Equipment Walker * List name and contact numbers for known caregivers / representatives who currently or will assist patient after discharge: Al and Cintia - friends - [phone] * Verbal permission to speak to the caregivers and representatives has been obtained from the patient. Yes * Community resources currently utilized None * Additional services required to return to the preadmission environment? Yes * Can the patient safely return to the preadmission environment? Yes * Has this patient been hospitalized within the prior 30 days at any hospital? No External Providers External Provider: OTHER-OTHER Next Contact Date: Service Request Date: Service Type: Resolution: Reviewer: Comments: Coverage Notice Reviewer: [id number] - Tricia Ontiveros Notice Issued Date-Time: 11/18/2018 16:30 Notice Type: Patient Choice Letter Notice Delivered To: Family Member Relationship to Patient: Son Hand Tufter Name: HERVE BERMAN Delivery Method: HAND - Hand Delivered Josaine Days: Prior Verbal Notification: Recipient Understood Notice: Yes Recipient Signature: Yes Med Rec Note Co-signed by Attending: Coverage Notice Comment: [facility] Last DP export: 11/18/18 4:16 pm Patient Name: PHIL BERMAN Page [id number] at 1932 All edits/amendments must be made on the electronic document DICTATION DATE: 11/18/181930 HAND WEAVER: JAMI 11/18/181930 RPT#: [id number] DC DATE: STATUS: ADM IN [facility] [address] [place] [address] END OF REPORT
[2018-11-18 20:22] VITALS: BP 114/68
[2018-11-19] VITALS (7 sets, daily range): BP systolic 113–145; BP diastolic 63–86
--- NOTE | 2018-11-19 07:43 | NUR ---
ROUNDING DONE WITH PATIENT BEING DNI CODE STATUS. ON 2L PER NC. BIPAP IN ROOM. MOODY CATH PATENT WITH CLEAR YELLOW URINE. RIGHT IJ TRIALYSIS SEEN WITH DRESSING C/D/I. LEFT SIDE OF HEAD SEEN WITH BEVERLY. ON EP, AWAITING LAB VALUSES. RIGHT WRIST SEENW [facility] BRACE. GENERALIZED EDEMA SEEN TO ALL EXTREMITIES.
[2018-11-19 08:14] LABS: BASOPHILS 0.1 % (0-2); EOSINOPHILS 0.2 % (0-7); HEMATOCRIT 26.6 % (42.0-54.0); HEMOGLOBIN 8.7 g/dL (13.5-17.5); IMMATURE GRANULOCYTES 0.1 % (0-5); LYMPHOCYTES 92.3 % (15-50); MCH 30.2 pg (26.0-34.0); MCHC 32.7 g/dL (31.0-37.0); MCV 92.4 fL (80.0-100.0); MEAN PLATELET VOLUME 10.1 fL (7.4-10.4); MONOCYTES 1.1 % (2-11); NEUTROPHILS 6.2 % (40-80); PLATELET COUNT 88 10x3/uL (130-400); RBC 2.88 10x6/uL (4.20-6.10); RDW 15.2 % (11.5-14.5)
[2018-11-19 08:24] LABS: ANION GAP 10.4 mmol/L (8-16); CARBON DIOXIDE 29.7 mmol/L (21.0-32.0); CREATININE - SERUM 2.1 mg/dL (0.6-1.3)
[2018-11-19 08:27] LABS: POTASSIUM - SERUM 3.1 mmol/L (3.5-5.1)
--- NOTE | 2018-11-19 09:17 | MORECARE ---
CASE MANAGEMENT DISCHARGE SUMMARY PATIENT: PHIL BERMAN UNIT: [id number] ADM DATE: 10/16/18 AGE: 63 : 54 SEX: M ROOM/BED: D.2116 AUTHOR: NATALIEDOC PHYSICIAN: REFERRING PHYSICIAN: DOMENICA BRYANT MD DATE OF SERVICE: 11/19/18 Discharge Plan Patient Name: PHIL BERMAN Facility: [facility]:[place] : 1955 Planned Disposition: Home with Hospice Anticipated Discharge Date: 11/19/18 Discharge Date: Expected LOS: 34 Initial Reviewer: [id number] Initial Review Date: 10/20/2018 Generated: 11/19/18 10:16 am Comments DCP- Discharge Planning Updated by [email or web address]: Nirmala Spangler on 11/18/18 5:[address] CM faxed referral to [phone] and obtained order for Hospice. Rama CANO spoke to Sharlene [facility] out of [place] and notified her of the referral and provided the needed information. CM will notify [facility] when the patient is discharged. Nirmala Spangler RN, [facility] DCP- Discharge Planning Updated by [id number]: Tricia Ontiveros on 11/18/18 4:[address] Patient Name: PHIL BERMAN Encounter No: [id number] : 1955 Primary Insurance: MEDICAID [place] Anticipated DC Date: 11-19-2018 Planned Disposition: Home with Hospice External Planned Provider: TO BE DETERMINED DCP follow-up note: JEROME SPOKE TO BEDSIDE NURSE WHO ADVISED THAT DR. WYATT AGREES WITH HOSPICE AND PT IS NOT A CANDIDATE FOR CHEMOTHERAPY. CM CALLED PT'S SON, HERVE BERMAN, , DISCUSSED OPTIONS. HERVE HAS NOT CHANGED HIS MIND ABOUT NO NURSING FACLITY, CONTINUES TO REPORT PLAN FOR PT TO COME TO SON'S HOME IN [place]; HERVE HAS NOT MADE A DECISION REGARDING HOSPICE AND WOULD LIKE TO TALK TO HIS AND BOSS REGARDING HOSPICE. CM OFFERED TO ASSIST WITH FINDING HOSPICE PROVIDERS AVAILABLE TO [place]OVER [place]. HERVE AGREED TO ASSISTANCE. CM CALLED AND FOUND FOUR HOSPICE PROVIDERS AVAILABLE: [facility], [facility], [facility], [phone]) [facility], . CM CALLED [facility], , NOTIFIED OF AVAILABLE HOSPICE PROVIDERS. HERVE WILL CONSIDER HOSPICE OPTIONS AND CALL CM WHEN HE MAKES THE DECISION, HOPES TO MAKE DECISION SOMETIME LATER TODAY. DISCHARGE ADDRESS WILL BE WITH [facility], AT [address] [place] [address]. CM WAITING SON'S DECISION REGARDING HOSPICE AND HOSPICE PROVIDER. Tricia Ontiveros, CASE MANAGEMENT Appended by Tricia Ontiveros on 11/18/2018 17:16 CDT: CM RECEIVED CALL FROM HERVE BERMAN SON, , REQUESTED [facility] BE CALLED FOR HOME HOSPICE EVALUATION AND ARRANGEMENTS. CM COMPLETED CHOICE LETTER FOR [facility]. CM CALLED [facility], , SPOKE TO ANSWERING SERVICE AND SHOULD RECEIVE RETURN CALL FROM DOCUMENT SPECIALIST NURSE, DARRELL HIGGINS. TRICIA ONTIVEROS, CASE MANAGEMENT DCP- Discharge Planning Updated by [id number]: Tricia Ontiveros on 11/17/18 4:[address] Patient Name: PHIL BERMAN Encounter No: [id number] : 1955 Primary Insurance: MEDICAID [place] Anticipated DC Date: Planned Disposition: Home WITH HOME HEALTH External Planned Provider: TO BE DETERMINED DCP follow-up note: CM SPOKE TO DR. WYATT WHO INFORMED CM THAT SHE WILL SPEAK TO DR. CARVALHO REGARDING POSSIBLE HOSPICE FOR PT. CM LATER RECEIVED ORDER FOR INPATIENT REHAB PRESCREENING. CM REVIEWED CHART, PT HAS MEDICAID, IS DOING RANGE OF MOTION WITH THERAPY IN HOSPITAL. PT HAS BEEN IN THE HOSPITAL FOR OVER ONE MONTH. PT DOES NOT HAVE ACUTE DAYS AVAILABLE WITH MEDICAID FOR INPATIENT REHAB, PT COULD NOT TOLERATE THREE HOURS OF PROGRESSIVE THERAPY FOR INPATIENT REHAB, PT'S INSURANCE WILL NOT PAY FOR REHAB IN [facility] FACILITY, BUT WILL PAY FOR "RESTORATIVE" OR ASSISTED CARE IN SNF. CM MET WITH PT IN ROOM, DISCUSSED ORDERS AND ABOVE INFORMATION. PT DOES NOT WANT TO GO LIVE IN A SNF. PT UNDERSTANDS HE DOES NOT HAVE INSURANCE NOW TO PAY FOR REHAB SERVICES BUT MAY HAVE MEDICARE IN THE FUTURE THEY OFFERED FOR HIM TO BUY INTO THE PROGRAM FOR A MONTHLY PAYMENT AND PT HAS PREVIOUSLY DECLINED. PT KNOWS WHAT HOSPICE HIS, BUT HAS NOT CONSIDERED THIS AT THIS TIME. PT REPORTS HE IS NOT GOING BACK TO HIS HOME, BUT GOING TO LIVE WITH HIS SON IN [place]. PT DIRECTED CM TO CALL HIS SON TO DISCUSS DISCHARGE PLANNING. CM CALLED HERVE BERMAN, SON, . HERVE REPORTS THAT PT IS NOT GOING TO A SNF. THEY WILL BE BRINING PT TO HERVE'S HOME AT [address] [place] [address]. THEY WILL NEED A BEDSIDE COMMODE AND SHOWER CHAIR AND WILL ALSO NEED HOME HEALTH TO ASSIST THEM WITH PT'S CARE IN THE HOME. CM DISCUSSED THAT PT IS CURRENTLY BED CONFINED, NOT DOING ANY BED MOBILITY AT ALL AND IS ONLY DOING RANGE OF MOTION WITH THERAPY. HERVE AGAIN REPORTS PT IS NOT GOING TO SNF AND THEY WILL TAKE CARE OF PT AT [facility] WITH FAMILY ASSISTANCE. HERVE WILL ATTEMPT TO FIND OUT WHO PT'S PRIMARY CARE DOCTOR IS WELL MAKE DECISION ON HOME HEALTH COMPANY AND LET CM KNOW. PT'S SON PLANS FOR PT TO LIVE IN SON'S HOME AND FAMILY PLANS TO CARE FOR PT AT HOME. THEY REPORT TO NEED BEDSIDE COMMODE, SHOWER CHAIR AND HOME HEALTH. CM WAITING ON RETURN CALL FROM SON WITH PRIMARY DOCTOR NAME AND HOME HEALTH COMPANY PREFERENCE. CM WILL CONTINUE TO FOLLOW AND ASSIST NEEDED. Tricia Ontiveros. CASE MANAGEMENT DCP- Discharge Planning Updated by [email or web address]: Lily Moss on 11/14/18 3:[address] CM spoke with patient's son Herve Berman [phone]. Herve states that at this time he is planning on his father living with him upon discharge. Herve states that he is looking into private care in his home upon discharge. Herve states that he lives in [place], [place]. CM will notify Melissa Noel on plans for discharge since patient is new to dialysis. CM will continue to follow and assist as needed with discharge planning / needs. DCP- Discharge Planning Updated by [id number]: Lily Moss on 11/08/18 2:[address] CM missed physician today to get physician recertification statement signed. Placed form on front of patients chart and notified nursing. CM will continue to follow and assist as needed with discharge planning / needs. DCP- Discharge Planning Updated by [id number]: Iona Mejíadavid on 10/20/18 10:[address] Patient Name: PHIL BERMAN Admission Status: ER Accout number: [id number] Admission Date: 10-16-2018 : 1955 Admission Diagnosis:WEAKNESS Attending: DOMENICA BRYANT Current LOS: 4 Anticipated DC Date: Planned Disposition: Home Primary Insurance: MED[place]ID [place] Discharge Planning Comments: CM met with patient to complete initial dc planning assessment. CM educated patient on the CM role and verbal consent given by patient to complete assessment. Patient lives at home alone in a [place] trailer, address on face sheet verified. At discharge patient plans to return and feels this is a safe discharge. He states his friend Al and Cintia live on the same property and will check on him and take him home at discharge. CM discussed availability of home health, rehab services, and medical equipment. Patient denied known discharge needs at this time. I encouraged home health and he declines at this time. He also has a son that lives in [place], he states that he does not want to stay with his son. He declines to give me his son's number and states that Cintia can call him if needed. CM will continue to follow and will assist as needed with dc plans/needs. Asset Coordinator: Iona Moses DCPIA - Discharge Planning Initial Assessment Updated by [id number]: Iona Moses on 10/20/18 11:19 am * Is the patient Alert and Oriented? Yes * How many steps to enter\\exit or inside your home? 08/12 * PCP Dr. Keagan Wesley * Pharmacy [facility] in [place] * Preadmission Environment Home Alone * ADLs Independent * Equipment Walker * List name and contact numbers for known caregivers / representatives who currently or will assist patient after discharge: Al and Cintia - friends - [phone] * Verbal permission to speak to the caregivers and representatives has been obtained from the patient. Yes * Community resources currently utilized None * Additional services required to return to the preadmission environment? Yes * Can the patient safely return to the preadmission environment? Yes * Has this patient been hospitalized within the prior 30 days at any hospital? No Coverage Notice Reviewer: [id number] - Tricia Ontiveros Notice Issued Date-Time: 11/18/2018 16:30 Notice Type: Patient Choice Letter Notice Delivered To: Family Member Relationship to Patient: Son Sushi Chef Name: HERVE BERMAN Delivery Method: HAND - Hand Delivered Josiane Days: Prior Verbal Notification: Recipient Understood Notice: Yes Recipient Signature: Yes Med Rec Note Co-signed by Attending: Coverage Notice Comment: [facility] Last DP export: 11/18/18 6:32 pm Patient Name: PHIL BERMAN Page 41001 at 0917 All edits/amendments must be made on the electronic document DICTATION DATE: 11/19/18915 TOURIST CAMP ATTENDANT: JAMI 11/19/18915 RPT#: [id number] DC DATE: STATUS: ADM IN [facility] [address] [place] [address] END OF REPORT
--- NOTE | 2018-11-19 09:28 | NUR ---
I CALLED MARTI IN PHARMACY FOR REFILL OF ZORVIRAX OINTMENT AND MV LIQUIDS.
--- NOTE | 2018-11-19 11:59 | NUR ---
LIQUID MV AND ZORVIRAX GIVEN SINCE BEING BROUGHT UP FROM PHARMACY. STILL MISSING THE LOVENOX.
--- NOTE | 2018-11-19 14:36 | NUR ---
RE-DRAW OF POTASSIUM IS 2.9.
--- NOTE | 2018-11-19 20:00 | NUR ---
PT RESTING IN BED. NO DISTRESS. INITIAL ROUNDS COMPLETED. SEE ASSESSMENT.
--- NOTE | 2018-11-19 21:00 | NUR ---
PT HAD REQUESTED PAIN MED FOR GENERALIZED BODY PAIN/DISCOMFORT. DILAUDID 1MG SIVP ADMINISTERED. MONITOR AND CPOC.
--- NOTE | 2018-11-19 22:00 | NUR ---
ALL BEDTIME MEDS GIVEN. PT RESTING. CALL LIGHT IN REACH. MONITOR AND CPOC.
[2018-11-20 06:21] LABS: HEMATOCRIT 27.7 % (42.0-54.0); MCH 30.3 pg (26.0-34.0); MCHC 32.5 g/dL (31.0-37.0); MCV 93.3 fL (80.0-100.0); MEAN PLATELET VOLUME 10.5 fL (7.4-10.4); PLATELET COUNT 74 10x3/uL (130-400); RBC 2.97 10x6/uL (4.20-6.10); RDW 15.6 % (11.5-14.5); WBC 10.9 10x3/uL (4.8-10.8)
--- NOTE | 2018-11-20 07:23 | NUR ---
ROUNDING DONE WITH PATIENT BEING A DNI STATUS. ON HEART MONITOR SHOWING ST, HR 122. ON 2L PER NC. BIPAP IN ROOM. RIGHT IJ TRIALYSIS SEEN WITH DRESS C/D/I. MOODY CATH PATENT WITH CONCENTRATED URINE. PATIENT IS INCONT. OF LOOSE STOOL AT THIS TIME. TECHS TO CLEAN PATIENT UP. ON EP, NO RESULTS YET. LEFT HEAD SEEN WITH BEVERLY INTACT. RIGHT WRIST SEEN WITH BRACE. WILL MONITOR.
[2018-11-20 07:55] LABS: ANION GAP 16.5 mmol/L (8-16); CARBON DIOXIDE 23.6 mmol/L (21.0-32.0); CREATININE - SERUM 2.3 mg/dL (0.6-1.3); POTASSIUM - SERUM 4.1 mmol/L (3.5-5.1)
[2018-11-20 07:59] VITALS: BP 114/56
--- NOTE | 2018-11-20 08:04 | NUR ---
K+ 4.1, NO NEED FOR COVERAGE.
[2018-11-20 08:06] LABS: HYPOCHROMASIA 1+; LYMPHOCYTES 92 % (15-50); MONOCYTES 1 % (2-11); NEUTROPHILS 7 % (40-80); PLATELET ESTIMATE DECREASED; PLATELET MORPHOLOGY NORMAL PLT MORPH
[2018-11-20 11:57] VITALS: BP 110/56
--- NOTE | 2018-11-20 12:44 | NUR ---
CLEANED UP FROM LARGE INCONT. OF STOOL.
[2018-11-20] MEDS ORDERED: AMIODARONE HCL200 MG PO (13:59)
[2018-11-20] MEDS ORDERED: ACETAMINOPHEN500 M1 NG (13:59)
[2018-11-20] MEDS ORDERED: PROTONIX40 MG PO (14:00)
--- NOTE | 2018-11-20 14:48 | MORECARE ---
CASE MANAGEMENT DISCHARGE SUMMARY PATIENT: PHIL BERMAN UNIT: [id number] ADM DATE: 10/16/18 AGE: 63 : 53 SEX: M ROOM/BED: D.2116 AUTHOR: JEWELS ESTRADA PHYSICIAN: REFERRING PHYSICIAN: DOMENICA BRYANT MD DATE OF SERVICE: 11/20/18 Discharge Plan Patient Name: PHIL BERMAN Facility: [facility]:[place] : 1955 Planned Disposition: Home with Hospice Anticipated Discharge Date: 11/19/18 Discharge Date: Expected LOS: 34 Initial Reviewer: [id number] Initial Review Date: 10/20/2018 Generated: 11/20/18 3:48 pm Comments DCP- Discharge Planning Updated by [email or web address]: Sofi Brower on 11/20/18 1:[address] Patient Name: PHIL BERMAN Admission Status: ER Accout number: [id number] Admission Date: 10-16-2018 : 1955 Admission Diagnosis:WEAKNESS Attending: DOMENICA BRYANT Current LOS: 35 Anticipated DC Date: 11-19-2018 Planned Disposition: Home with Hospice Primary Insurance: [place] Discharge Planning Comments: [facility]IED [facility] [place]. INFO FAXED FOR DC. NO OTHER CM NEEDS AT THIS TIME Roll Filler: Sofi Brower DCP- Discharge Planning Updated by [id number]: Nirmala Spangler on 11/18/18 5:[address] CM faxed referral to [phone] and obtained order for Hospice. Rama CM spoke to Sharlene @ [facility] out of [place] and notified her of the referral and provided the needed information. CM will notify [facility] when the patient is discharged. Nirmala Spangler RN, CCM DCP- Discharge Planning Updated by [email or web address]: Tricia Ontiveros on 11/18/18 4:[address] Patient Name: PHIL BERMAN Encounter No: [id number] : 1955 Primary Insurance: [place] Anticipated DC Date: 11-19-2018 Planned Disposition: Home with Hospice External Planned Provider: TO BE DETERMINED DCP follow-up note: CM SPOKE TO BEDSIDE NURSE WHO ADVISED THAT DR. WYATT AGREES WITH HOSPICE AND PT IS NOT A CANDIDATE FOR CHEMOTHERAPY. CM CALLED PT'S SON, HERVE BERMAN, , DISCUSSED OPTIONS. HERVE HAS NOT CHANGED HIS MIND ABOUT NO NURSING FACLITY, CONTINUES TO REPORT PLAN FOR PT TO COME TO SON'S HOME IN [place]; HERVE HAS NOT MADE A DECISION REGARDING HOSPICE AND WOULD LIKE TO TALK TO HIS AND BOSS REGARDING HOSPICE. CM OFFERED TO ASSIST WITH FINDING HOSPICE PROVIDERS AVAILABLE TO COVER [facility]. HERVE AGREED TO ASSISTANCE. CM CALLED AND FOUND FOUR HOSPICE PROVIDERS AVAILABLE: [facility], [facility], [facility], ([phone]) [facility], . CM CALLED [facility], , NOTIFIED OF AVAILABLE HOSPICE PROVIDERS. HERVE WILL CONSIDER HOSPICE OPTIONS AND CALL CM WHEN HE MAKES THE DECISION, HOPES TO MAKE DECISION SOMETIME LATER TODAY. DISCHARGE ADDRESS WILL BE WITH [facility], AT [address] [place] [address]. CM WAITING SON'S DECISION REGARDING HOSPICE AND HOSPICE PROVIDER. Tricia Ontiveros, CASE MANAGEMENT Appended by Tricia Ontiveros on 11/18/2018 17:16 CDT: CM RECEIVED CALL FROM [facility], , RE[facility]ED [facility] CALLED FOR HOME HOSPICE EVALUATION AND ARRANGEMENTS. CM COMPLETED CHOICE LETTER FOR [facility]. CM CALLED [facility], , SPOKE TO ANSWERING SERVICE AND SHOULD RECEIVE RETURN CALL FROM ZOO KEEPER NURSE, SHORTLY. TRICIA HIGGINS, CASE MANAGEMENT DCP- Discharge Planning Updated by [id number]: Tricia Ontiveros on 11/17/18 4:[address] Patient Name: PHIL BERMAN Encounter No: [id number] : 1955 Primary Insurance: [place] Anticipated DC Date: Planned Disposition: Home WITH HOME HEALTH External Planned Provider: TO BE DETERMINED DCP follow-up note: CM SPOKE TO DR. WYATT WHO INFORMED CM THAT SHE WILL SPEAK TO DR. CARVALHO REGARDING POSSIBLE HOSPICE FOR PT. CM LATER RECEIVED ORDER FOR INPATIENT REHAB PRESCREENING. CM REVIEWED CHART, PT HAS MEDICAID, IS DOING RANGE OF MOTION WITH THERAPY IN HOSPITAL. PT HAS BEEN IN THE HOSPITAL FOR OVER ONE MONTH. PT DOES NOT HAVE ACUTE DAYS AVAILABLE WITH MEDICAID FOR INPATIENT REHAB, PT COULD NOT TOLERATE THREE HOURS OF PROGRESSIVE THERAPY FOR INPATIENT REHAB, PT'S INSURANCE WILL NOT PAY FOR REHAB IN LONG TERM FACILITY, BUT WILL PAY FOR "RESTORATIVE" OR SKILLED NURSING CARE IN LONG-TERM. CM MET WITH PT IN ROOM, DISCUSSED ORDERS AND ABOVE INFORMATION. PT DOES NOT WANT TO GO LIVE IN A LONG-TERM. PT UNDERSTANDS HE DOES NOT HAVE INSURANCE NOW TO PAY FOR REHAB SERVICES BUT MAY HAVE MEDICARE IN THE FUTURE THEY OFFERED FOR HIM TO BUY INTO THE PROGRAM FOR A MONTHLY PAYMENT AND PT HAS PREVIOUSLY DECLINED. PT KNOWS WHAT HOSPICE HIS, BUT HAS NOT CONSIDERED THIS AT THIS TIME. PT REPORTS HE IS NOT GOING BACK TO HIS HOME, BUT GOING TO LIVE WITH HIS SON IN [place]. PT DIRECTED CM TO CALL HIS SON TO DISCUSS DISCHARGE PLANNING. CM CALLED HERVE BERMAN, SON, . HERVE REPORTS THAT PT IS NOT GOING TO A LONG-TERM. THEY WILL BE BRINING PT TO HERVE'S HOME AT [address] [place] [address]. THEY WILL NEED A BEDSIDE COMMODE AND SHOWER CHAIR AND WILL ALSO NEED HOME HEALTH TO ASSIST THEM WITH PT'S CARE IN THE HOME. CM DISCUSSED THAT PT IS CURRENTLY BED CONFINED, NOT DOING ANY BED MOBILITY AT ALL AND IS ONLY DOING RANGE OF MOTION WITH THERAPY. HERVE AGAIN REPORTS PT IS NOT GOING TO LONG-TERM AND THEY WILL TAKE CARE OF PT AT [facility] WITH FAMILY ASSISTANCE. HERVE WILL ATTEMPT TO FIND OUT WHO PT'S PRIMARY CARE DOCTOR IS WELL MAKE DECISION ON HOME HEALTH COMPANY AND LET CM KNOW. PT'S SON PLANS FOR PT TO LIVE IN SON'S HOME AND FAMILY PLANS TO CARE FOR PT AT HOME. THEY REPORT TO NEED BEDSIDE COMMODE, SHOWER CHAIR AND HOME HEALTH. CM WAITING ON RETURN CALL FROM SON WITH PRIMARY DOCTOR NAME AND HOME HEALTH COMPANY PREFERENCE. CM WILL CONTINUE TO FOLLOW AND ASSIST NEEDED. Tricia Ontiveros. CASE MANAGEMENT DCP- Discharge Planning Updated by [id number]: Lily Moss on 11/14/18 3:[address] CM spoke with patient's son Herve Berman [phone]. Herve states that at this time he is planning on his father living with him upon discharge. Herve states that he is looking into private care in his home upon discharge. Herve states that he lives in [place], [place]. CM will notify Melissa Bert on plans for discharge since patient is new to dialysis. CM will continue to follow and assist as needed with discharge planning / needs. DCP- Discharge Planning Updated by [email or web address]: Lily Moss on 11/08/18 2:[address] CM missed physician today to get physician recertification statement signed. Placed form on front of patients chart and notified nursing. CM will continue to follow and assist as needed with discharge planning / needs. DCP- Discharge Planning Updated by [email or web address]: Iona Moses on 10/20/18 10:[address] Patient Name: PHIL BERMAN Admission Status: ER Accout number: [id number] Admission Date: 10-16-2018 : 1955 Admission Diagnosis:WEAKNESS Attending: DOMENICA BRYANT Current LOS: 4 Anticipated DC Date: Planned Disposition: Home Primary Insurance: MED[place]ID [place] Discharge Planning Comments: CM met with patient to complete initial dc planning assessment. CM educated patient on the CM role and verbal consent given by patient to complete assessment. Patient lives at home alone in a camping trailer, address on face sheet verified. At discharge patient plans to return and feels this is a safe discharge. He states his friend Al and Cintia live on the same property and will check on him and take him home at discharge. CM discussed availability of home health, rehab services, and medical equipment. Patient denied known discharge needs at this time. I encouraged home health and he declines at this time. He also has a son that lives in [place], he states that he does not want to stay with his son. He declines to give me his son's number and states that Cintia can call him if needed. CM will continue to follow and will assist as needed with dc plans/needs. Roll Filler: Iona Moses DCPIA - Discharge Planning Initial Assessment Updated by [email or web address]: Iona Moses on 10/20/18 11:19 am * Is the patient Alert and Oriented? Yes * How many steps to enter\\exit or inside your home? 08/12 * PCP Dr. Keagan Wesley * Pharmacy [facility] in [place] * Preadmission Environment Home Alone * ADLs Independent * Equipment Walker * List name and contact numbers for known caregivers / representatives who currently or will assist patient after discharge: Al and Cintia [facility] - [phone] * Verbal permission to speak to the caregivers and representatives has been obtained from the patient. Yes * Community resources currently utilized None * Additional services required to return to the preadmission environment? Yes * Can the patient safely return to the preadmission environment? Yes * Has this patient been hospitalized within the prior 30 days at any hospital? No Coverage Notice Reviewer: [id number] Alyssa Ontiveros Notice Issued Date-Time: 11/18/2018 16:30 Notice Type: Patient Choice Letter Notice Delivered To: Family Member Relationship to Patient: Son Turbo Operator Name: HERVE BERMAN Delivery Method: HAND - Hand Delivered Josiane Days: Prior Verbal Notification: Recipient Understood Notice: Yes Recipient Signature: Yes Med Rec Note Co-signed by Attending: Coverage Notice Comment: [facility] Last DP export: 11/19/18 8:16 am Patient Name: PHIL BERMAN Page [id number] at 1448 All edits/amendments must be made on the electronic document DICTATION DATE: 11/20/181446 FORM BUILDER HELPER: JAMI 11/20/187 RPT#: [id number] DC DATE: STATUS: ADM IN [facility] [address] [place] [address] END OF REPORT
--- NOTE | 2018-11-20 15:48 | MORECARE ---
CASE MANAGEMENT DISCHARGE SUMMARY PATIENT: PHIL BERMAN UNIT: [id number] ADM DATE: 10/16/18 AGE: 63 : 54 SEX: M ROOM/BED: D.2116 AUTHOR: JEWELS ESTRADA PHYSICIAN: REFERRING PHYSICIAN: DOMENICA BRYANT MD DATE OF SERVICE: 11/20/18 Discharge Plan Patient Name: PHIL BERMAN Facility: [facility]:[place] : 1955 Planned Disposition: Home with Hospice Anticipated Discharge Date: 11/19/18 Discharge Date: Expected LOS: 34 Initial Reviewer: [id number] Initial Review Date: 10/20/2018 Generated: 11/20/18 4:48 pm Comments DCP- Discharge Planning Updated by [id number]: Sofi Brower on 11/20/18 2:[address] Patient Name: PHIL BERMAN Admission Status: ER Accout number: [id number] Admission Date: 10-16-2018 : 1955 Admission Diagnosis:WEAKNESS Attending: DOMENICA BRYANT Current LOS: 35 Anticipated DC Date: 11-19-2018 Planned Disposition: Home with Hospice Primary Insurance: MEDICAID [place] Discharge Planning Comments: PT WAS TO DC TODAY TO HOME WITH [facility]. THE NURSE FROM HOSPICE CALLED AND SAID THE HOME IS NOT SET UP FOR DC TODAY. THE DME WILL NOT BE DELIVERED UNTIL TOMORROW. I NOTIFIED FLOOR OF THIS. CM TO CONTINUE TO FOLLOW Signal Tower Operator: Sofi Brower DCP- Discharge Planning Updated by [id number]: Sofi Brower on 11/20/18 1:[address] Patient Name: PHIL BERMAN Admission Status: ER Accout number: [id number] Admission Date: 10-16-2018 : 1955 Admission Diagnosis:WEAKNESS Attending: DOMENICA BRYANT Current LOS: 35 Anticipated DC Date: 11-19-2018 Planned Disposition: Home with Hospice Primary Insurance: MED[place]ID [place] Discharge Planning Comments: NOTIFIED [facility]. INFO FAXED FOR DC. NO OTHER CM NEEDS AT THIS TIME Signal Tower Operator: Sofi Brower DCP- Discharge Planning Updated by [id number]: Nirmala Spangler on 11/18/18 5:[address] CM faxed referral to [phone] and obtained order for Hospice. Rama CANO spoke to Sharlene [facility] out of [place] and notified her of the referral and provided the needed information. CM will notify [facility] when the patient is discharged. Nirmala Spangler RN, [facility] DCP- Discharge Planning Updated by [id number]: Tricia Ontiveros on 11/18/18 4:[address] Patient Name: PHIL BERMAN Encounter No: [id number] : 1955 Primary Insurance: [place]ID [place] Anticipated DC Date: 11-19-2018 Planned Disposition: Home with Hospice External Planned Provider: TO BE DETERMINED DCP follow-up note: CM SPOKE TO BEDSIDE NURSE WHO ADVISED THAT DR. WYATT AGREES WITH HOSPICE AND PT IS NOT A CANDIDATE FOR CHEMOTHERAPY. CM CALLED PT'S SON, HERVE BERMAN, , DISCUSSED OPTIONS. HERVE HAS NOT CHANGED HIS MIND ABOUT NO NURSING FACLITY, CONTINUES TO REPORT PLAN FOR PT TO COME TO SON'S HOME IN [place]; HERVE HAS NOT MADE A DECISION REGARDING HOSPICE AND WOULD LIKE TO TALK TO HIS AND BOSS REGARDING HOSPICE. CM OFFERED TO ASSIST WITH FINDING HOSPICE PROVIDERS AVAILABLE TO COVER . HERVE AGREED TO ASSISTANCE. CM CALLED AND FOUND FOUR HOSPICE PROVIDERS AVAILABLE: [facility], [facility], [facility], ([phone]) [facility], . CM CALLED [facility], , NOTIFIED OF AVAILABLE HOSPICE PROVIDERS. HERVE WILL CONSIDER HOSPICE OPTIONS AND CALL CM WHEN HE MAKES THE DECISION, HOPES TO MAKE DECISION SOMETIME LATER TODAY. DISCHARGE ADDRESS WILL BE WITH [facility], AT [address] [place] [address]. CM WAITING SON'S DECISION REGARDING HOSPICE AND HOSPICE PROVIDER. Tricia Ontiveros, CASE MANAGEMENT Appended by Tricia Ontiveros on 11/18/2018 17:16 CDT: CM RECEIVED CALL FROM HERVE BERMAN, SON, , REQUESTED [facility] BE CALLED FOR HOME HOSPICE EVALUATION AND ARRANGEMENTS. CM COMPLETED CHOICE LETTER FOR [facility]. CM CALLED [facility], , SPOKE TO ANSWERING SERVICE AND SHOULD RECEIVE RETURN CALL FROM PUBLIC RELATIONS ASSISTANT NURSE, SHORTLY. TRICIA HIGGINS, CASE MANAGEMENT DCP- Discharge Planning Updated by [email or web address]: Tricia Ontiveros on 11/17/18 4:[address] Patient Name: PHIL BERMAN Encounter No: [id number] : 1955 Primary Insurance: MED[place]ID [place] Anticipated DC Date: Planned Disposition: Home WITH HOME HEALTH External Planned Provider: TO BE DETERMINED DCP follow-up note: CM SPOKE TO DR. WYATT WHO INFORMED CM THAT SHE WILL SPEAK TO DR. CARVALHO REGARDING POSSIBLE HOSPICE FOR PT. CM LATER RECEIVED ORDER FOR INPATIENT REHAB PRESCREENING. CM REVIEWED CHART, PT HAS MEDICAID, IS DOING RANGE OF MOTION WITH THERAPY IN HOSPITAL. PT HAS BEEN IN THE HOSPITAL FOR OVER ONE MONTH. PT DOES NOT HAVE ACUTE DAYS AVAILABLE WITH MEDICAID FOR INPATIENT REHAB, PT COULD NOT TOLERATE THREE HOURS OF PROGRESSIVE THERAPY FOR INPATIENT REHAB, PT'S INSURANCE WILL NOT PAY FOR REHAB IN ASSISTED FACILITY, BUT WILL PAY FOR "RESTORATIVE" OR ASSESSMENT EXPERT CARE IN [facility]. CM MET WITH PT IN ROOM, DISCUSSED ORDERS AND ABOVE INFORMATION. PT DOES NOT WANT TO GO LIVE IN A [facility]. PT UNDERSTANDS HE DOES NOT HAVE INSURANCE NOW TO PAY FOR REHAB SERVICES BUT MAY HAVE MEDICARE IN THE FUTURE THEY OFFERED FOR HIM TO BUY INTO THE PROGRAM FOR A MONTHLY PAYMENT AND PT HAS PREVIOUSLY DECLINED. PT KNOWS WHAT HOSPICE HIS, BUT HAS NOT CONSIDERED THIS AT THIS TIME. PT REPORTS HE IS NOT GOING BACK TO HIS HOME, BUT GOING TO LIVE WITH HIS SON IN [place]. PT DIRECTED CM TO CALL HIS SON TO DISCUSS DISCHARGE PLANNING. CM CALLED HERVE BERMAN, SON, . HERVE REPORTS THAT PT IS NOT GOING TO A [facility]. THEY WILL BE BRINING PT TO HERVE'S HOME AT [address] [place] [address]. THEY WILL NEED A BEDSIDE COMMODE AND SHOWER CHAIR AND WILL ALSO NEED HOME HEALTH TO ASSIST THEM WITH PT'S CARE IN THE HOME. CM DISCUSSED THAT PT IS CURRENTLY BED CONFINED, NOT DOING ANY BED MOBILITY AT ALL AND IS ONLY DOING RANGE OF MOTION WITH THERAPY. HERVE AGAIN REPORTS PT IS NOT GOING TO [facility] AND THEY WILL TAKE CARE OF PT AT [facility] WITH FAMILY ASSISTANCE. HERVE WILL ATTEMPT TO FIND OUT WHO PT'S PRIMARY CARE DOCTOR IS WELL MAKE DECISION ON HOME HEALTH COMPANY AND LET CM KNOW. PT'S SON PLANS FOR PT TO LIVE IN SON'S HOME AND FAMILY PLANS TO CARE FOR PT AT HOME. THEY REPORT TO NEED BEDSIDE COMMODE, SHOWER CHAIR AND HOME HEALTH. CM WAITING ON RETURN CALL FROM SON WITH PRIMARY DOCTOR NAME AND HOME HEALTH COMPANY PREFERENCE. CM WILL CONTINUE TO FOLLOW AND ASSIST NEEDED. Tricia Ontiveros. CASE MANAGEMENT DCP- Discharge Planning Updated by [id number]: Lily oMss on 11/14/18 3:[address] CM spoke with patient's son Herve Berman [phone]. Herve states that at this time he is planning on his father living with him upon discharge. Herve states that he is looking into private care in his home upon discharge. Herve states that he lives in [place], [place]. CM will notify Melissa Noel on plans for discharge since patient is new to dialysis. CM will continue to follow and assist as needed with discharge planning / needs. DCP- Discharge Planning Updated by [id number]: Lily Moss on 11/08/18 2:[address] CM missed physician today to get physician recertification statement signed. Placed form on front of patients chart and notified nursing. CM will continue to follow and assist as needed with discharge planning / needs. DCP- Discharge Planning Updated by [id number]: Iona Moses on 10/20/18 10:[address] Patient Name: PHIL BERMAN Admission Status: ER Accout number: [id number] Admission Date: 10-16-2018 : 1955 Admission Diagnosis:WEAKNESS Attending: DOMENICA BRYANT Current LOS: 4 Anticipated DC Date: Planned Disposition: Home Primary Insurance: MED[place]ID [place] Discharge Planning Comments: CM met with patient to complete initial dc planning assessment. CM educated patient on the CM role and verbal consent given by patient to complete assessment. Patient lives at home alone in a camping trailer, address on face sheet verified. At discharge patient plans to return and feels this is a safe discharge. He states his friend Al and Cintia live on the same property and will check on him and take him home at discharge. CM discussed availability of home health, rehab services, and medical equipment. Patient denied known discharge needs at this time. I encouraged home health and he declines at this time. He also has a son that lives in [place], he states that he does not want to stay with his son. He declines to give me his son's number and states that Cintia can call him if needed. CM will continue to follow and will assist as needed with dc plans/needs. Signal Tower Operator: Iona Aurelia DCPIA - Discharge Planning Initial Assessment Updated by [id number]: Iona Aurelia on 10/20/18 11:19 am * Is the patient Alert and Oriented? Yes * How many steps to enter\\exit or inside your home? 08/12 * PCP Dr. Keagan Wesley * Pharmacy [facility] in [place] * Preadmission Environment Home Alone * ADLs Independent * Equipment Walker * List name and contact numbers for known caregivers / representatives who currently or will assist patient after discharge: Al and Cintia - [facility] - [phone] * Verbal permission to speak to the caregivers and representatives has been obtained from the patient. Yes * Community resources currently utilized None * Additional services required to return to the preadmission environment? Yes * Can the patient safely return to the preadmission environment? Yes * Has this patient been hospitalized within the prior 30 days at any hospital? No Coverage Notice Reviewer: [id number] - Tricia Ontiveros Notice Issued Date-Time: 11/18/2018 16:30 Notice Type: Patient Choice Letter Notice Delivered To: Family Member Relationship to Patient: Son Sales Outfitter Name: HERVE BERMAN Delivery Method: HAND - Hand Delivered Josiane Days: Prior Verbal Notification: Recipient Understood Notice: Yes Recipient Signature: Yes Med Rec Note Co-signed by Attending: Coverage Notice Comment: [facility] Last DP export: 11/20/18 1:48 pm Patient Name: PHIL BERMAN Page [id number] at 1548 All edits/amendments must be made on the electronic document DICTATION DATE: 11/20/181546 SVP GROUP DIRECTOR: JAMI 11/20/181546 RPT#: [id number] DC DATE: STATUS: ADM IN [facility] [address] [place] [address] END OF REPORT
[2018-11-20 16:27] VITALS: BP 113/58
--- NOTE | 2018-11-20 18:09 | NUR ---
DENIES NEEDS AT THIS TIME. WILL CONTINUE TO MONITOR.
[2018-11-20 19:45] VITALS: BP 96/45
[2018-11-21] VITALS: BP 139/66
[2018-11-21 04:00] VITALS: BP 131/64
[2018-11-21 06:23] LABS: BASOPHILS 0.1 % (0-2); EOSINOPHILS 0 % (0-7); HEMATOCRIT 24.5 % (42.0-54.0); IMMATURE GRANULOCYTES 0.6 % (0-5); LYMPHOCYTES 89.3 % (15-50); MCHC 32.7 g/dL (31.0-37.0); MCV 91.8 fL (80.0-100.0); MEAN PLATELET VOLUME 10.1 fL (7.4-10.4); MONOCYTES 0.4 % (2-11); NEUTROPHILS 9.6 % (40-80); PLATELET COUNT 62 10x3/uL (130-400); RBC 2.67 10x6/uL (4.20-6.10); RDW 15.8 % (11.5-14.5); WBC 9.4 10x3/uL (4.8-10.8)
[2018-11-21 06:41] LABS: ANION GAP 13.7 mmol/L (8-16); CARBON DIOXIDE 24.5 mmol/L (21.0-32.0); CREATININE - SERUM 2.8 mg/dL (0.6-1.3); MAGNESIUM - SERUM 1.4 mg/dL (1.8-2.4); PHOSPHOROUS 4.7 mg/dL (2.5-4.9)
[2018-11-21 06:43] LABS: POTASSIUM - SERUM 3.2 mmol/L (3.5-5.1)
--- NOTE | 2018-11-21 07:20 | NUR ---
PT IA A DO NOT INTUBATE. SLOW TO FOLLOW COMANDSTELEMERTY SHOWS SR AT 100. O2 AT 2 L/M PER NC. USES BIPAP. RIGHT TRIALYSIS WITH NURSE PORT. STAGE 2 TO RIGHT BUTTOCK.BRACE TO UPPER RIGHT ARM. WILL MONITOR
[2018-11-21 07:59] VITALS: BP 110/60
[2018-11-21 09:50] VITALS: Ht 175.3 cm; Wt 109.7 kg
--- NOTE | 2018-11-21 10:14 | NUR ---
UP TO BEDSIDE CHAIRPER PT. CALL LIGHT IN REACH
[2018-11-21 12:04] VITALS: BP 95/50
--- NOTE | 2018-11-21 13:25 | MORECARE ---
CASE MANAGEMENT DISCHARGE SUMMARY PATIENT: PHIL BERMAN UNIT: [id number] ADM DATE: 10/16/18 AGE: 63 : 53 SEX: M ROOM/BED: D.2116 AUTHOR: JEWELS ESTRADA PHYSICIAN: REFERRING PHYSICIAN: DOMENICA BRYANT MD DATE OF SERVICE: 11/21/18 Discharge Plan Patient Name: PHIL BERMAN Facility: [facility]:[place] : 1955 Planned Disposition: Home with Hospice Anticipated Discharge Date: 11/19/18 Discharge Date: Expected LOS: 34 Initial Reviewer: [id number] Initial Review Date: 10/20/2018 Generated: 11/21/18 2:24 pm Comments DCP- Discharge Planning Updated by [id number]: Tricia Ontiveros on 11/21/18 12:[address] Patient Name: PHIL BERMAN Encounter No: [id number] : 1955 Primary Insurance: [place] Anticipated DC Date: 11-19-2018 Planned Disposition: Home with Hospice External Planned Provider: DONNY PAUL DCP follow-up note: CM CALLED [facility], , SPOKE TO VARGAS GETACHEW AND ASKED FOR UPDATE ON DELIVERY OF EQUIPMENT TO PT'S SON'S HOME FOR PT'S DISCHARGE HOME TODAY WITH HOSPICE. SAM WAS NOT ABLE TO PROVIDE AN UPDATE AND WILL HAVE THE NURSE CALL CM SHORTLY. CM FAXED DISCHARGE ORDER, MEDS AND DOCTOR'S NOTE FROM TODAY TO [facility] AT [phone]/ WAITING VERIFICATION OF EQUIPMENT DELIVERY TO PT'S SON'S HOME IN [place] FOR PT'S DISCHARGE HOME VIA AMBULANCE. GENARO Rodas DCP- Discharge Planning Updated by [id number]: Sofi Brower on 11/20/18 2:[address] Patient Name: PHIL BERMAN Admission Status: ER Accout number: [id number] Admission Date: 10-16-2018 : 1955 Admission Diagnosis:WEAKNESS Attending: DOMENICA BRYANT Current LOS: 35 Anticipated DC Date: 11-19-2018 Planned Disposition: Home with Hospice Primary Insurance: [place] Discharge Planning Comments: PT WAS TO DC TODAY TO HOME WITH [facility]. THE NURSE FROM HOSPICE CALLED AND SAID THE HOME IS NOT SET UP FOR DC TODAY. THE DME WILL NOT BE DELIVERED UNTIL TOMORROW. I NOTIFIED FLOOR OF THIS. CM TO CONTINUE TO FOLLOW Criminal Research Specialist: Sofi Brower DCP- Discharge Planning Updated by [id number]: Sofi Brower on 11/20/18 1:[address] Patient Name: PHIL BERMAN Admission Status: ER Accout number: [id number] Admission Date: 10-16-2018 : 1955 Admission Diagnosis:WEAKNESS Attending: DOMENICA BRYANT Current LOS: 35 Anticipated DC Date: 11-19-2018 Planned Disposition: Home with Hospice Primary Insurance: [place] Discharge Planning Comments: NOTIFIED [facility] OF DC. INFO FAXED FOR DC. NO OTHER CM NEEDS AT THIS TIME Criminal Research Specialist: Sofi Brower DCP- Discharge Planning Updated by [id number]: Nirmala Spangler on 11/18/18 5:[address] CM faxed referral to [phone] and obtained order for Hospice. Rama CANO spoke to Sharlene [facility] out of [place] and notified her of the referral and provided the needed information. CM will notify [facility] when the patient is discharged. Nirmala Spangler RN, [facility] DCP- Discharge Planning Updated by [id number]: Tricia Ontiveros on 11/18/18 4:[address] Patient Name: PHIL BERMAN Encounter No: [id number] : 1955 Primary Insurance: [place] Anticipated DC Date: 11-19-2018 Planned Disposition: Home with Hospice External Planned Provider: TO BE DETERMINED DCP follow-up note: CM SPOKE TO BEDSIDE NURSE WHO ADVISED THAT DR. WYATT AGREES WITH HOSPICE AND PT IS NOT A CANDIDATE FOR CHEMOTHERAPY. CM CALLED PT'S SON, HERVE BERMAN, , DISCUSSED OPTIONS. HERVE HAS NOT CHANGED HIS MIND ABOUT NO NURSING FACLITY, CONTINUES TO REPORT PLAN FOR PT TO COME TO SON'S HOME IN [place]; HERVE HAS NOT MADE A DECISION REGARDING HOSPICE AND WOULD LIKE TO TALK TO HIS AND BOSS REGARDING HOSPICE. CM OFFERED TO ASSIST WITH FINDING HOSPICE PROVIDERS AVAILABLE TO COVER [place] AREA. HERVE AGREED TO ASSISTANCE. CM CALLED AND FOUND FOUR HOSPICE PROVIDERS AVAILABLE: [facility], [facility], [facility], ([phone]) [facility], . CM CALLED [facility], , NOTIFIED OF AVAILABLE HOSPICE PROVIDERS. HERVE WILL CONSIDER HOSPICE OPTIONS AND CALL CM WHEN HE MAKES THE DECISION, HOPES TO MAKE DECISION SOMETIME LATER TODAY. DISCHARGE ADDRESS WILL BE WITH [facility], AT [address] [place] [address]. CM WAITING SON'S DECISION REGARDING HOSPICE AND HOSPICE PROVIDER. Tricia Ontiveros, CASE MANAGEMENT Appended by Tricia Ontiveros on 11/18/2018 17:16 CDT: CM RECEIVED CALL FROM [facility], , REQUESTED [facility] BE CALLED FOR HOME HOSPICE EVALUATION AND ARRANGEMENTS. CM COMPLETED CHOICE LETTER FOR [facility]. CM CALLED [facility], , SPOKE TO ANSWERING SERVICE AND SHOULD RECEIVE RETURN CALL FROM GLOBAL MARKETING MANAGER NURSE, DARRELL HIGGINS. TRICIA ONTIVEROS, CASE MANAGEMENT DCP- Discharge Planning Updated by [id number]: Tricia Ontiveros on 11/17/18 4:[address] Patient Name: PHIL BERMAN Encounter No: [id number] : 1955 Primary Insurance: [place] Anticipated DC Date: Planned Disposition: Home WITH HOME HEALTH External Planned Provider: TO BE DETERMINED DCP follow-up note: CM SPOKE TO DR. WYATT WHO INFORMED CM THAT SHE WILL SPEAK TO DR. CARVALHO REGARDING POSSIBLE HOSPICE FOR PT. CM LATER RECEIVED ORDER FOR INPATIENT REHAB PRESCREENING. CM REVIEWED CHART, PT HAS MEDICAID, IS DOING RANGE OF MOTION WITH THERAPY IN HOSPITAL. PT HAS BEEN IN THE HOSPITAL FOR OVER ONE MONTH. PT DOES NOT HAVE ACUTE DAYS AVAILABLE WITH MEDICAID FOR INPATIENT REHAB, PT COULD NOT TOLERATE THREE HOURS OF PROGRESSIVE THERAPY FOR INPATIENT REHAB, PT'S INSURANCE WILL NOT PAY FOR REHAB IN SNF FACILITY, BUT WILL PAY FOR "RESTORATIVE" OR BUTTON PUSHER CARE IN [place]. CM MET WITH PT IN ROOM, DISCUSSED ORDERS AND ABOVE INFORMATION. PT DOES NOT WANT TO GO LIVE IN A [place]. PT UNDERSTANDS HE DOES NOT HAVE INSURANCE NOW TO PAY FOR REHAB SERVICES BUT MAY HAVE MEDICARE IN THE FUTURE THEY OFFERED FOR HIM TO BUY INTO THE PROGRAM FOR A MONTHLY PAYMENT AND PT HAS PREVIOUSLY DECLINED. PT KNOWS WHAT HOSPICE HIS, BUT HAS NOT CONSIDERED THIS AT THIS TIME. PT REPORTS HE IS NOT GOING BACK TO HIS HOME, BUT GOING TO LIVE WITH HIS SON IN [place]. PT DIRECTED CM TO CALL HIS SON TO DISCUSS DISCHARGE PLANNING. CM CALLED HERVE BERMAN, SON, . HERVE REPORTS THAT PT IS NOT GOING TO A [place]AIL. THEY WILL BE BRINING PT TO HERVE'S HOME AT [address] [place] [address]. THEY WILL NEED A BEDSIDE COMMODE AND SHOWER CHAIR AND WILL ALSO NEED HOME HEALTH TO ASSIST THEM WITH PT'S CARE IN THE HOME. CM DISCUSSED THAT PT IS CURRENTLY BED CONFINED, NOT DOING ANY BED MOBILITY AT ALL AND IS ONLY DOING RANGE OF MOTION WITH THERAPY. HERVE AGAIN REPORTS PT IS NOT GOING TO [place] AND THEY WILL TAKE CARE OF PT AT [facility] WITH FAMILY ASSISTANCE. HERVE WILL ATTEMPT TO FIND OUT WHO PT'S PRIMARY CARE DOCTOR IS WELL MAKE DECISION ON HOME HEALTH COMPANY AND LET CM KNOW. PT'S SON PLANS FOR PT TO LIVE IN SON'S HOME AND FAMILY PLANS TO CARE FOR PT AT HOME. THEY REPORT TO NEED BEDSIDE COMMODE, SHOWER CHAIR AND HOME HEALTH. CM WAITING ON RETURN CALL FROM SON WITH PRIMARY DOCTOR NAME AND HOME HEALTH COMPANY PREFERENCE. CM WILL CONTINUE TO FOLLOW AND ASSIST NEEDED. Tricia Ontiveros. CASE MANAGEMENT DCP- Discharge Planning Updated by [id number]: Lily Moss on 11/14/18 3:[address] CM spoke with patient's son Herve Berman [phone]. Herve states that at this time he is planning on his father living with him upon discharge. Herve states that he is looking into private care in his home upon discharge. Herve states that he lives in [place], [place]. CM will notify Melissa Noel on plans for discharge since patient is new to dialysis. CM will continue to follow and assist as needed with discharge planning / needs. DCP- Discharge Planning Updated by [id number]: Lily Moss on 11/08/18 2:[address] CM missed physician today to get physician recertification statement signed. Placed form on front of patients chart and notified nursing. CM will continue to follow and assist as needed with discharge planning / needs. DCP- Discharge Planning Updated by [id number]: Iona Moses on 10/20/18 10:[address] Patient Name: PHIL BERMAN Admission Status: ER Accout number: [id number] Admission Date: 10-16-2018 : 1955 Admission Diagnosis:WEAKNESS Attending: DOMENICA BRYANT Current LOS: 4 Anticipated DC Date: Planned Disposition: Home Primary Insurance: [place]ID [place] Discharge Planning Comments: CM met with patient to complete initial dc planning assessment. CM educated patient on the CM role and verbal consent given by patient to complete assessment. Patient lives at home alone in a camping trailer, address on face sheet verified. At discharge patient plans to return and feels this is a safe discharge. He states his friend AletheaCecilia and Cintia live on the same property and will check on him and take him home at discharge. CM discussed availability of home health, rehab services, and medical equipment. Patient denied known discharge needs at this time. I encouraged home health and he declines at this time. He also has a son that lives in [place], he states that he does not want to stay with his son. He declines to give me his son's number and states that Cintia can call him if needed. CM will continue to follow and will assist as needed with dc plans/needs. Criminal Research Specialist: Iona Mejíadavid DCPIA - Discharge Planning Initial Assessment Updated by [email or web address]: Iona Moses on 10/20/18 11:19 am * Is the patient Alert and Oriented? Yes * How many steps to enter\\exit or inside your home? 08/12 * PCP Dr. Keagan Wesley * Pharm[facility] in [place] * Preadmission Environment Home Alone * ADLs Independent * Equipment Walker * List name and contact numbers for known caregivers / representatives who currently or will assist patient after discharge: Al and Cintia - friends - [phone] * Verbal permission to speak to the caregivers and representatives has been obtained from the patient. Yes * Community resources currently utilized None * Additional services required to return to the preadmission environment? Yes * Can the patient safely return to the preadmission environment? Yes * Has this patient been hospitalized within the prior 30 days at any hospital? No External Providers External Provider: OTHER-OTHER Next Contact Date: 11/21/2018 Service Request Date: Service Type: Resolution: Reviewer: Comments: Coverage Notice Reviewer: [id number] - Tricia Ontiveros Notice Issued Date-Time: 11/18/2018 16:30 Notice Type: Patient Choice Letter Notice Delivered To: Family Member Relationship to Patient: Son Screw Down Name: HERVE BERMAN Delivery Method: HAND - Hand Delivered Josiane Days: Prior Verbal Notification: Recipient Understood Notice: Yes Recipient Signature: Yes Med Rec Note Co-signed by Attending: Coverage Notice Comment: [facility] Last DP export: 11/20/18 2:48 pm Patient Name: PHIL BERMAN Page [id number] at 1325 All edits/amendments must be made on the electronic document DICTATION DATE: 11/21/181323 NECK PINNER: [email or web address] 11/21/181323 RPT#: [id number] DC DATE: STATUS: ADM IN [facility] [address] [place] [address] END OF REPORT
--- NOTE | 2018-11-21 15:21 | NUR ---
PT GIVEN POTASSIUM AND MAG FOR LOW LAB VALUES DENIES ANY NEEDS. WILL MONITOR
--- NOTE | 2018-11-21 16:02 | MORECARE ---
CASE MANAGEMENT DISCHARGE SUMMARY PATIENT: PHIL BERMAN UNIT: [id number] ADM DATE: 10/16/18 AGE: 63 : 53 SEX: M ROOM/BED: D.2116 AUTHOR: JEWELS ESTRADA PHYSICIAN: REFERRING PHYSICIAN: DOMENICA BRYANT MD DATE OF SERVICE: 11/21/18 Discharge Plan Patient Name: PHIL BERMAN Facility: [facility]:[place] : 1955 Planned Disposition: Home with Hospice Anticipated Discharge Date: 11/19/18 Discharge Date: Expected LOS: 34 Initial Reviewer: [id number] Initial Review Date: 10/20/2018 Generated: 11/21/18 5:01 pm Comments DCP- Discharge Planning Updated by [id number]: Tricia Ontiveros on 11/21/18 2:[address] Patient Name: PHIL BERMAN Encounter No: [id number] : 1955 Primary Insurance: [place] Anticipated DC Date: 11-19-2018 Planned Disposition: Home with Hospice External Planned Provider: DONNY PAUL DCP follow-up note: CM CALLED [facility], , SPOKE TO NURSE MUSTAFA AND ASKED FOR UPDATE ON DELIVERY OF EQUIPMENT TO PT'S SON'S HOME FOR PT'S DISCHARGE HOME TODAY WITH HOSPICE. [facility] CHECKED AND CALLED CM BACK, THEY ARE NOT ABLE TO DELIVER PT'S MEDICAL EQUIPMENT UNTIL THE MORNING, 11-22-18. CM SPOKE TO PT'S SON, HERVE, WHO IS IN AGREEMENT WITH PLAN FOR PT TO COME TO HIS HOME AFTER PT IS DISCHAGED, HOSPICE HAS CONTACTED HIM AND WILL COME TO THE HOME TO ADMIT PT TOMORROW AFTER PT'S ARRIVAL. DARON PRIETO NOTIFIED OF DELAY FOR DISCHARGE. CM WAITING VERIFICATION OF EQUIPMENT DELIVERY TO PT'S SON'S HOME IN [place] FOR PT'S DISCHARGE HOME VIA AMBULANCE 11-22-18. DISCHARGE ADDRESS IS [address] [place] [address]. Tricia Ontiveros, CASE MANAGEMENT DCP- Discharge Planning Updated by [id number]: Sofi Brower on 11/20/18 2:[address] Patient Name: PHIL BERMAN Admission Status: ER Accout number: [id number] Admission Date: 10-16-2018 : 1955 Admission Diagnosis:WEAKNESS Attending: DOMENICA BRYANT Current LOS: 35 Anticipated DC Date: 11-19-2018 Planned Disposition: Home with Hospice Primary Insurance: [place] Discharge Planning Comments: PT WAS TO DC TODAY TO HOME WITH [facility]. THE NURSE FROM HOSPICE CALLED AND SAID THE HOME IS NOT SET UP FOR DC TODAY. THE DME WILL NOT BE DELIVERED UNTIL TOMORROW. I NOTIFIED FLOOR OF THIS. CM TO CONTINUE TO FOLLOW Medication Nurse: Sofi Brower DCP- Discharge Planning Updated by [id number]: Sofi Brower on 11/20/18 1:[address] Patient Name: PHIL BERMAN Admission Status: ER Accout number: [id number] Admission Date: 10-16-2018 : 1955 Admission Diagnosis:WEAKNESS Attending: DOMENICA BRYANT Current LOS: 35 Anticipated DC Date: 11-19-2018 Planned Disposition: Home with Hospice Primary Insurance: [place] Discharge Planning Comments: NOTIFIED [facility] OF DC. INFO FAXED FOR DC. NO OTHER CM NEEDS AT THIS TIME Medication Nurse: Sofi Brower DCP- Discharge Planning Updated by [id number]: Nirmala Spangler on 11/18/18 5:[address] CM faxed referral to [phone] and obtained order for Hospice. Rama CM spoke to Sharlene [facility] out of [place] and notified her of the referral and provided the needed information. CM will notify [facility] when the patient is discharged. Nirmala Spangler RN, [facility] DCP- Discharge Planning Updated by [id number]: Tricia Ontiveros on 11/18/18 4:[address] Patient Name: PHIL BERMAN Encounter No: [id number] : 1955 Primary Insurance: [place] Anticipated DC Date: 11-19-2018 Planned Disposition: Home with Hospice External Planned Provider: TO BE DETERMINED DCP follow-up note: CM SPOKE TO BEDSIDE NURSE WHO ADVISED THAT DR. WYATT AGREES WITH HOSPICE AND PT IS NOT A CANDIDATE FOR CHEMOTHERAPY. CM CALLED PT'S SON, HERVE BERMAN, , DISCUSSED OPTIONS. HERVE HAS NOT CHANGED HIS MIND ABOUT NO NURSING FACLITY, CONTINUES TO REPORT PLAN FOR PT TO COME TO SON'S HOME IN [place]; HERVE HAS NOT MADE A DECISION REGARDING HOSPICE AND WOULD LIKE TO TALK TO HIS AND BOSS REGARDING HOSPICE. CM OFFERED TO ASSIST WITH FINDING HOSPICE PROVIDERS AVAILABLE TO COVER [facility]. HERVE AGREED TO ASSISTANCE. CM CALLED AND FOUND FOUR HOSPICE PROVIDERS AVAILABLE: [facility], [facility], [facility], ([phone]) [facility], . CM CALLED [facility], , NOTIFIED OF AVAILABLE HOSPICE PROVIDERS. HERVE WILL CONSIDER HOSPICE OPTIONS AND CALL CM WHEN HE MAKES THE DECISION, HOPES TO MAKE DECISION SOMETIME LATER TODAY. DISCHARGE ADDRESS WILL BE WITH [facility], AT [address] [place] [address]. CM WAITING SON'S DECISION REGARDING HOSPICE AND HOSPICE PROVIDER. Tricia Ontiveros, CASE MANAGEMENT Appended by Tricia Ontiveros on 11/18/2018 17:16 CDT: CM RECEIVED CALL FROM HERVE BERMAN, [facility], , RE[facility]ED [facility] BE CALLED FOR HOME HOSPICE EVALUATION AND ARRANGEMENTS. CM COMPLETED CHOICE LETTER FOR [facility]. CM CALLED [facility], , SPOKE TO ANSWERING SERVICE AND SHOULD RECEIVE RETURN CALL FROM VARIETY LATHE OPERATOR NURSE, DARRELL HIGGINS. TRICIA ONTIVEROS, CASE MANAGEMENT DCP- Discharge Planning Updated by [email or web address]: Tircia Ontiveros on 11/17/18 4:[address] Patient Name: PHIL BERMAN Encounter No: [id number] : 1955 Primary Insurance: [place] Anticipated DC Date: Planned Disposition: Home WITH HOME HEALTH External Planned Provider: TO BE DETERMINED DCP follow-up note: JEROME SPOKE TO DR. WYATT WHO INFORMED CM THAT SHE WILL SPEAK TO DR. CARVALHO REGARDING POSSIBLE HOSPICE FOR PT. CM LATER RECEIVED ORDER FOR INPATIENT REHAB PRESCREENING. CM REVIEWED CHART, PT HAS MEDICAID, IS DOING RANGE OF MOTION WITH THERAPY IN HOSPITAL. PT HAS BEEN IN THE HOSPITAL FOR OVER ONE MONTH. PT DOES NOT HAVE ACUTE DAYS AVAILABLE WITH MEDICAID FOR INPATIENT REHAB, PT COULD NOT TOLERATE THREE HOURS OF PROGRESSIVE THERAPY FOR INPATIENT REHAB, PT'S INSURANCE WILL NOT PAY FOR REHAB IN [facility], BUT WILL PAY FOR "RESTORATIVE" OR SKILLED NURSING CARE IN [place]. CM MET WITH PT IN ROOM, DISCUSSED ORDERS AND ABOVE INFORMATION. PT DOES NOT WANT TO GO LIVE IN A [place]. PT UNDERSTANDS HE DOES NOT HAVE INSURANCE NOW TO PAY FOR REHAB SERVICES BUT MAY HAVE MEDICARE IN THE FUTURE THEY OFFERED FOR HIM TO BUY INTO THE PROGRAM FOR A MONTHLY PAYMENT AND PT HAS PREVIOUSLY DECLINED. PT KNOWS WHAT HOSPICE HIS, BUT HAS NOT CONSIDERED THIS AT THIS TIME. PT REPORTS HE IS NOT GOING BACK TO HIS HOME, BUT GOING TO LIVE WITH HIS SON IN [place]. PT DIRECTED CM TO CALL HIS SON TO DISCUSS DISCHARGE PLANNING. CM CALLED HERVE BERMAN, SON, . HERVE REPORTS THAT PT IS NOT GOING TO A [place]. THEY WILL BE BRINING PT TO HERVE'S HOME AT [address] [place] [address]. THEY WILL NEED A BEDSIDE COMMODE AND SHOWER CHAIR AND WILL ALSO NEED HOME HEALTH TO ASSIST THEM WITH PT'S CARE IN THE HOME. CM DISCUSSED THAT PT IS CURRENTLY BED CONFINED, NOT DOING ANY BED MOBILITY AT ALL AND IS ONLY DOING RANGE OF MOTION WITH THERAPY. HERVE AGAIN REPORTS PT IS NOT GOING TO [place] AND THEY WILL TAKE CARE OF PT AT [facility] WITH FAMILY ASSISTANCE. HERVE WILL ATTEMPT TO FIND OUT WHO PT'S PRIMARY CARE DOCTOR IS WELL MAKE DECISION ON HOME HEALTH COMPANY AND LET CM KNOW. PT'S SON PLANS FOR PT TO LIVE IN SON'S HOME AND FAMILY PLANS TO CARE FOR PT AT HOME. THEY REPORT TO NEED BEDSIDE COMMODE, SHOWER CHAIR AND HOME HEALTH. CM WAITING ON RETURN CALL FROM SON WITH PRIMARY DOCTOR NAME AND HOME HEALTH COMPANY PREFERENCE. CM WILL CONTINUE TO FOLLOW AND ASSIST NEEDED. Tricia Ontiveros. CASE MANAGEMENT DCP- Discharge Planning Updated by [id number]: Lily Moss on 11/14/18 3:[address] CM spoke with patient's son Herve Berman [phone]. Herve states that at this time he is planning on his father living with him upon discharge. Herve states that he is looking into private care in his home upon discharge. Herve states that he lives in [place], [place]. CM will notify Melissa Noel on plans for discharge since patient is new to dialysis. CM will continue to follow and assist as needed with discharge planning / needs. DCP- Discharge Planning Updated by [id number]: Lily Isa on 11/08/18 2:[address] CM missed physician today to get physician recertification statement signed. Placed form on front of patients chart and notified nursing. CM will continue to follow and assist as needed with discharge planning / needs. DCP- Discharge Planning Updated by [id number]: Iona Moses on 10/20/18 10:[address] Patient Name: PHIL BERMAN Admission Status: ER Accout number: [id number] Admission Date: 10-16-2018 : 1955 Admission Diagnosis:WEAKNESS Attending: DOMENICA BRYANT Current LOS: 4 Anticipated DC Date: Planned Disposition: Home Primary Insurance: [place] Discharge Planning Comments: CM met with patient to complete initial dc planning assessment. CM educated patient on the CM role and verbal consent given by patient to complete assessment. Patient lives at home alone in a camping trailer, address on face sheet verified. At discharge patient plans to return and feels this is a safe discharge. He states his friend Al and Cintia live on the same property and will check on him and take him home at discharge. CM discussed availability of home health, rehab services, and medical equipment. Patient denied known discharge needs at this time. I encouraged home health and he declines at this time. He also has a son that lives in [place], he states that he does not want to stay with his son. He declines to give me his son's number and states that Cintia can call him if needed. CM will continue to follow and will assist as needed with dc plans/needs. Medication Nurse: Iona Moses DCPIA - Discharge Planning Initial Assessment Updated by [id number]: Iona Moses on 10/20/18 11:19 am * Is the patient Alert and Oriented? Yes * How many steps to enter\\exit or inside your home? 08/12 * PCP Dr. Keagan Wesley * Pharmacy [facility] in [place] * Preadmission Environment Home Alone * ADLs Independent * Equipment Walker * List name and contact numbers for known caregivers / representatives who currently or will assist patient after discharge: Al and Cintia - friends - [phone] * Verbal permission to speak to the caregivers and representatives has been obtained from the patient. Yes * Community resources currently utilized None * Additional services required to return to the preadmission environment? Yes * Can the patient safely return to the preadmission environment? Yes * Has this patient been hospitalized within the prior 30 days at any hospital? No Coverage Notice Reviewer: [id number] Alyssa Ontiveros Notice Issued Date-Time: 11/18/2018 16:30 Notice Type: Patient Choice Letter Notice Delivered To: Family Member Relationship to Patient: Son Electronic Industrial Controls Mechanic Name: HERVE BERMAN Delivery Method: HAND - Hand Delivered Josiane Days: Prior Verbal Notification: Recipient Understood Notice: Yes Recipient Signature: Yes Med Rec Note Co-signed by Attending: Coverage Notice Comment: DONNY [facility] PAUL Last DP export: 11/21/18 12:24 p Patient Name: PHIL BERMAN Page [id number] at 1602 All edits/amendments must be made on the electronic document DICTATION DATE: 11/21/181600 INTERACTIVE ACCOUNT MANAGER: JAMI 11/21/181600 RPT#: [id number] DC DATE: STATUS: ADM IN [facility] [address] [place] [address] END OF REPORT
--- NOTE | 2018-11-21 18:29 | NUR ---
LYING QUIETLY. DENIES ANY NEEDS. RIGHT IJ PATENT. TELEMERTY SHOWS SR UP WITH CALL LIGHT IN REACH
--- NOTE | 2018-11-21 19:30 | NUR ---
RESUMING PATIENT CARE. PATIENT IS ALERT AND ORIENTED. RESTING COMFORTABLY IN BED. RESPIRATIONS ARE EVEN AND UNLABORED. PATIENT REMAINS ON 2 L NC. NO S/S OF DISTRESS. NO C/O PAIN. PATIENT DENIES NEEDS. CALL LIGHT WITHIN REACH. WILL CPOC.
[2018-11-21 20:00] VITALS: BP 100/54
--- NOTE | 2018-11-21 23:08 | NUR ---
CARMEN BILEDON PT PATRICIA APPLICATION WELL
[2018-11-22] VITALS: BP 101/56
--- NOTE | 2018-11-22 01:00 | NUR ---
PATIENT RESTING COMFORTABLY IN BED. RESPIRATIONS ARE EVEN AND UNLABORED. PATIENT WAS PLACED ON BIPAP BY RT. NO S/S OF DISTRESS. NO C/O PAIN. NEEDS MET. CALL IGHT WITHIN REACH. WILL CPOC.
[2018-11-22 04:00] VITALS: BP 104/64
[2018-11-22 05:09] LABS: HEMATOCRIT 22.7 % (42.0-54.0); MCH 29.8 pg (26.0-34.0); MCV 90.1 fL (80.0-100.0); MEAN PLATELET VOLUME 10.1 fL (7.4-10.4); PLATELET COUNT 63 10x3/uL (130-400); RBC 2.52 10x6/uL (4.20-6.10); RDW 15.9 % (11.5-14.5)
[2018-11-22 05:15] LABS: WBC 12.4 10x3/uL (4.8-10.8)
[2018-11-22 05:16] LABS: HEMOGLOBIN 7.5 g/dL (13.5-17.5)
[2018-11-22 05:24] LABS: LYMPHOCYTES 91 % (15-50); NEUTROPHILS 9 % (40-80); PLATELET ESTIMATE DECREASED
[2018-11-22 05:29] LABS: ANION GAP 15.4 mmol/L (8-16); CALCIUM 8.2 mg/dL (8.5-10.1); CARBON DIOXIDE 25.4 mmol/L (21.0-32.0); CREATININE - SERUM 3.1 mg/dL (0.6-1.3); PHOSPHOROUS 5.6 mg/dL (2.5-4.9)
[2018-11-22 05:38] LABS: POTASSIUM - SERUM 2.8 mmol/L (3.5-5.1)
--- NOTE | 2018-11-22 07:15 | NUR ---
ALERT AND ORIENTED. TELEMERTY SHOWS SR 97, 02 AT 2 L/M PER NC. RIGHT IJ TRIALYIS WITH NURSE PORT. BRACE TO RIGHT WRIST. [facility] TO LEFT SIDE OF HEAD. MOODY CATH PATENT TO GRAVITY BAG. REPOSITIONED FOR COMFORT. SR UP WITH CALL LIGHT IN REACH
[2018-11-22 09:18] VITALS: BP 99/55
--- NOTE | 2018-11-22 09:37 | NUR ---
Nutrition follow-up: Diet: REgular PO intake ~25% of meals labs reviewed Wt: 241# Possible dc with hospice RDN following.
--- NOTE | 2018-11-22 15:37 | NUR ---
I have reviewed this patient and I concur with the Shift Assessment completed by the Licensed Practical Nurse today this shift.
[2018-11-22 18:51] VITALS: BP 96/50
--- NOTE | 2018-11-22 19:33 | NUR ---
RESUMING PATIENT CARE. PATIENT IS ALERT AND ORIENTED, RESTING COMFORTABLY IN BED. RESPIRATIONS ARE EVEN AND UNLABORED. NO S/S OF DISTRES. NO C/O PAIN. CALL LIGHT WITHIN REACH. WILL CPOC.
[2018-11-22 20:00] VITALS: BP 103/55
--- NOTE | 2018-11-22 21:10 | NUR ---
CALLED [facility] TO COMFIRM JESSY. WAS TOLD BY [facility] THAT THE [facility]BULANCE CREW WAS TRANSPORTING A PATIENT HERE TO [facility] AND WOULD BE PICKING MY PATIENT UP. THEY COULD NOT CONFIRM ETA AT THIS TIME.
--- NOTE | 2018-11-22 22:00 | NUR ---
PATIENT SON CALLED INQUIRING ABOUT HIS FATHER LEAVING [employer]. ATTEMPTED TO EXPLAIN TO THE SON THAT I TRIED TO CONFIRM ETA WITH [facility] AND THAT WAS NT POSSIBLE. SON WAS VERBAL UPSET HE STATED THAT THEY HAVE BEEN WAITING SINCE NOON FOR HIS ARRIVAL. I APOLOGIZED FOR THE INCONVIENCE AND THE SON HUNG ON ME.
--- NOTE | 2018-11-22 23:02 | NUR ---
PATIENT LEFT WITH EMS. SON WAS NOTIFIED.
--- NOTE | 2018-11-23 07:34 | MORECARE ---
CASE MANAGEMENT DISCHARGE SUMMARY PATIENT: PHIL BERMAN UNIT: [id number] ADM DATE: 10/16/18 AGE: 63 : 53 SEX: M ROOM/BED: D.2116 AUTHOR: JEWELS ESTRADA PHYSICIAN: REFERRING PHYSICIAN: DOMENICA BRYANT MD DATE OF SERVICE: 11/23/18 Discharge Plan Patient Name: PHIL BERMAN Facility: [facility]:[place] : 1955 Planned Disposition: Home with Hospice Anticipated Discharge Date: 11/19/18 Discharge Date: 11/22/2018 Expected LOS: 34 Initial Reviewer: [email or web address] Initial Review Date: 10/20/2018 Generated: 11/23/18 8:34 am Comments DCP- Discharge Planning Updated by [email or web address]: Tricia Ontiveros on 11/21/18 2:[address] Patient Name: PHIL BERMAN Encounter No: [id number] : 1955 Primary Insurance: MEDICAID [place] Anticipated DC Date: 11-19-2018 Planned Disposition: Home with Hospice External Planned Provider: DONNY PAUL DCP follow-up note: CM CALLED [facility], , SPOKE TO NURSE MUSTAFA AND ASKED FOR UPDATE ON DELIVERY OF EQUIPMENT TO PT'S SON'S HOME FOR PT'S DISCHARGE HOME TODAY WITH HOSPICE. [facility] CHECKED AND CALLED CM BACK, THEY ARE NOT ABLE TO DELIVER PT'S MEDICAL EQUIPMENT UNTIL THE MORNING, 11-22-18. CM SPOKE TO PT'S SON, HERVE, WHO IS IN AGREEMENT WITH PLAN FOR PT TO COME TO HIS HOME AFTER PT IS DISCHAGED, HOSPICE HAS CONTACTED HIM AND WILL COME TO THE HOME TO ADMIT PT TOMORROW AFTER PT'S ARRIVAL. DARON PRIETO NOTIFIED OF DELAY FOR DISCHARGE. CM WAITING VERIFICATION OF EQUIPMENT DELIVERY TO PT'S SON'S HOME IN [place] FOR PT'S DISCHARGE HOME VIA AMBULANCE 11-22-18. DISCHARGE ADDRESS IS [address] [place] [address]. Tricia Ontiveros, CASE MANAGEMENT DCP- Discharge Planning Updated by [id number]: Sofi Brower on 11/20/18 2:[address] Patient Name: PHIL BERMAN Admission Status: ER Accout number: [id number] Admission Date: 10-16-2018 : 1955 Admission Diagnosis:WEAKNESS Attending: DOMENICA BRYANT Current LOS: 35 Anticipated DC Date: 11-19-2018 Planned Disposition: Home with Hospice Primary Insurance: MEDICAID [place] Discharge Planning Comments: PT WAS TO DC TODAY TO HOME WITH [facility]. THE NURSE FROM HOSPICE CALLED AND SAID THE HOME IS NOT SET UP FOR DC TODAY. THE DME WILL NOT BE DELIVERED UNTIL TOMORROW. I NOTIFIED FLOOR OF THIS. CM TO CONTINUE TO FOLLOW Director Of Agriculture: Sofi Brower DCP- Discharge Planning Updated by [email or web address]: Sofi Brower on 11/20/18 1:[address] Patient Name: PHIL BERMAN Admission Status: ER Accout number: [id number] Admission Date: 10-16-2018 : 1955 Admission Diagnosis:WEAKNESS Attending: DOMENICA BRYANT Current LOS: 35 Anticipated DC Date: 11-19-2018 Planned Disposition: Home with Hospice Primary Insurance: MEDICAID [place] Discharge Planning Comments: NOTIFIED [facility] OF DC. INFO FAXED FOR DC. NO OTHER CM NEEDS AT THIS TIME Director Of Agriculture: Sofi Brower DCP- Discharge Planning Updated by [id number]: Nirmala Spangler on 11/18/18 5:[address] CM faxed referral to [phone] and obtained order for Hospice. Rama CM spoke to Sharlene @ [facility] out of [place] and notified her of the referral and provided the needed information. CM will notify [facility] when the patient is discharged. Nirmala Spangler RN, [facility] DCP- Discharge Planning Updated by [id number]: Tricia Ontiveros on 11/18/18 4:[address] Patient Name: PHIL BERMAN Encounter No: [id number] : 1955 Primary Insurance: MEDICAID [place] Anticipated DC Date: 11-19-2018 Planned Disposition: Home with Hospice External Planned Provider: TO BE DETERMINED DCP follow-up note: CM SPOKE TO BEDSIDE NURSE WHO ADVISED THAT DR. WYATT AGREES WITH HOSPICE AND PT IS NOT A CANDIDATE FOR CHEMOTHERAPY. CM CALLED PT'S SON, HERVE BERMAN, , DISCUSSED OPTIONS. HERVE HAS NOT CHANGED HIS MIND ABOUT NO NURSING FACLITY, CONTINUES TO REPORT PLAN FOR PT TO COME TO SON'S HOME IN [place]; HERVE HAS NOT MADE A DECISION REGARDING HOSPICE AND WOULD LIKE TO TALK TO HIS AND BOSS REGARDING HOSPICE. CM OFFERED TO ASSIST WITH FINDING HOSPICE PROVIDERS AVAILABLE TO [facility]. HERVE AGREED TO ASSISTANCE. CM CALLED AND FOUND FOUR HOSPICE PROVIDERS AVAILABLE: [facility], [facility], [facility], [phone]) [facility], . CM CALLED [facility], , NOTIFIED OF AVAILABLE HOSPICE PROVIDERS. HERVE WILL CONSIDER HOSPICE OPTIONS AND CALL CM WHEN HE MAKES THE DECISION, HOPES TO MAKE DECISION SOMETIME LATER TODAY. DISCHARGE ADDRESS WILL BE WITH [facility], AT [address] [place] [address]. CM WAITING SON'S DECISION REGARDING HOSPICE AND HOSPICE PROVIDER. Tricia Ontiveros, CASE MANAGEMENT Appended by Tricia Ontiveros on 11/18/2018 17:16 CDT: CM RECEIVED CALL FROM HERVE BERMAN, [facility], , REQUESTED [facility] CALLED FOR HOME HOSPICE EVALUATION AND ARRANGEMENTS. CM COMPLETED CHOICE LETTER FOR [facility]. CM CALLED [facility], , SPOKE TO ANSWERING SERVICE AND SHOULD RECEIVE RETURN CALL FROM [facility] NURSE, DARRELL HIGGINS. TRICIA ONTIVEROS, CASE MANAGEMENT DCP- Discharge Planning Updated by [email or web address]: Tricia Ontiveros on 11/17/18 4:[address] Patient Name: PHIL BERMAN Encounter No: [id number] : 1955 Primary Insurance: MEDICAID [place] Anticipated DC Date: Planned Disposition: Home WITH HOME HEALTH External Planned Provider: TO BE DETERMINED DCP follow-up note: JEROME SPOKE TO DR. WYATT WHO INFORMED CM THAT SHE WILL SPEAK TO DR. CARVALHO REGARDING POSSIBLE HOSPICE FOR PT. CM LATER RECEIVED ORDER FOR INPATIENT REHAB PRESCREENING. CM REVIEWED CHART, PT HAS MEDICAID, IS DOING RANGE OF MOTION WITH THERAPY IN HOSPITAL. PT HAS BEEN IN THE HOSPITAL FOR OVER ONE MONTH. PT DOES NOT HAVE ACUTE DAYS AVAILABLE WITH MEDICAID FOR INPATIENT REHAB, PT COULD NOT TOLERATE THREE HOURS OF PROGRESSIVE THERAPY FOR INPATIENT REHAB, PT'S INSURANCE WILL NOT PAY FOR REHAB IN GROUP HOME FACILITY, BUT WILL PAY FOR "RESTORATIVE" OR PAYROLL CLERK CARE IN INTERMEDIATE. CM MET WITH PT IN ROOM, DISCUSSED ORDERS AND ABOVE INFORMATION. PT DOES NOT WANT TO GO LIVE IN A INTERMEDIATE. PT UNDERSTANDS HE DOES NOT HAVE INSURANCE NOW TO PAY FOR REHAB SERVICES BUT MAY HAVE MEDICARE IN THE FUTURE THEY OFFERED FOR HIM TO BUY INTO THE PROGRAM FOR A MONTHLY PAYMENT AND PT HAS PREVIOUSLY DECLINED. PT KNOWS WHAT HOSPICE HIS, BUT HAS NOT CONSIDERED THIS AT THIS TIME. PT REPORTS HE IS NOT GOING BACK TO HIS HOME, BUT GOING TO LIVE WITH HIS SON IN [place]. PT DIRECTED CM TO CALL HIS SON TO DISCUSS DISCHARGE PLANNING. CM CALLED HERVE BERMAN, SON, . HERVE REPORTS THAT PT IS NOT GOING TO A INTERMEDIATE. THEY WILL BE BRINING PT TO HERVE'S HOME AT [address] [place] [address]. THEY WILL NEED A BEDSIDE COMMODE AND SHOWER CHAIR AND WILL ALSO NEED HOME HEALTH TO ASSIST THEM WITH PT'S CARE IN THE HOME. CM DISCUSSED THAT PT IS CURRENTLY BED CONFINED, NOT DOING ANY BED MOBILITY AT ALL AND IS ONLY DOING RANGE OF MOTION WITH THERAPY. HERVE AGAIN REPORTS PT IS NOT GOING TO INTERMEDIATE AND THEY WILL TAKE CARE OF PT AT [facility] WITH FAMILY ASSISTANCE. HERVE WILL ATTEMPT TO FIND OUT WHO PT'S PRIMARY CARE DOCTOR IS WELL MAKE DECISION ON HOME HEALTH COMPANY AND LET CM KNOW. PT'S SON PLANS FOR PT TO LIVE IN SON'S HOME AND FAMILY PLANS TO CARE FOR PT AT HOME. THEY REPORT TO NEED BEDSIDE COMMODE, SHOWER CHAIR AND HOME HEALTH. CM WAITING ON RETURN CALL FROM SON WITH PRIMARY DOCTOR NAME AND HOME HEALTH COMPANY PREFERENCE. CM WILL CONTINUE TO FOLLOW AND ASSIST NEEDED. Tricia Ontiveros. CASE MANAGEMENT DCP- Discharge Planning Updated by [id number]: Lily Moss on 11/14/18 3:[address] CM spoke with patient's son Herve Berman [phone]. Herve states that at this time he is planning on his father living with him upon discharge. Herve states that he is looking into private care in his home upon discharge. Herve states that he lives in [place], [place]. CM will notify Melissa Noel on plans for discharge since patient is new to dialysis. CM will continue to follow and assist as needed with discharge planning / needs. DCP- Discharge Planning Updated by [email or web address]: Lily Isa on 11/08/18 2:[address] CM missed physician today to get physician recertification statement signed. Placed form on front of patients chart and notified nursing. CM will continue to follow and assist as needed with discharge planning / needs. DCP- Discharge Planning Updated by [email or web address]: Iona Moses on 10/20/18 10:[address] Patient Name: PHIL BERMAN Admission Status: ER Accout number: [id number] Admission Date: 10-16-2018 : 1955 Admission Diagnosis:WEAKNESS Attending: DOMENICA BRYANT Current LOS: 4 Anticipated DC Date: Planned Disposition: Home Primary Insurance: MEDICAID [place] Discharge Planning Comments: CM met with patient to complete initial dc planning assessment. CM educated patient on the CM role and verbal consent given by patient to complete assessment. Patient lives at home alone in a camping trailer, address on face sheet verified. At discharge patient plans to return and feels this is a safe discharge. He states his friend AletheaCastilloPeyton and Cintia live on the same property and will check on him and take him home at discharge. CM discussed availability of home health, rehab services, and medical equipment. Patient denied known discharge needs at this time. I encouraged home health and he declines at this time. He also has a son that lives in [place], he states that he does not want to stay with his son. He declines to give me his son's number and states that Cintia can call him if needed. CM will continue to follow and will assist as needed with dc plans/needs. Director Of Agriculture: Iona Moses DCPIA - Discharge Planning Initial Assessment Updated by [id number]: Iona Moses on 10/20/18 11:19 am * Is the patient Alert and Oriented? Yes * How many steps to enter\\exit or inside your home? 08/12 * PCP Dr. Keagan Wesley * Pharmacy [facility] in [place] * Preadmission Environment Home Alone * ADLs Independent * Equipment Walker * List name and contact numbers for known caregivers / representatives who currently or will assist patient after discharge: Al and Cintia - friends - [phone] * Verbal permission to speak to the caregivers and representatives has been obtained from the patient. Yes * Community resources currently utilized None * Additional services required to return to the preadmission environment? Yes * Can the patient safely return to the preadmission environment? Yes * Has this patient been hospitalized within the prior 30 days at any hospital? No Coverage Notice Reviewer: [id number] Alyssa Ontiveros Notice Issued Date-Time: 11/18/2018 16:30 Notice Type: Patient Choice Letter Notice Delivered To: Family Member Relationship to Patient: Son Train Starter Name: HERVE BERMAN Delivery Method: HAND - Hand Delivered Josiane Days: Prior Verbal Notification: Recipient Understood Notice: Yes Recipient Signature: Yes Med Rec Note Co-signed by Attending: Coverage Notice Comment: DONNY TAHIR PAUL LUCIANIL Last DP export: 11/21/18 3:01 p Patient Name: PHIL BERMAN Page 10018 at 0734 All edits/amendments must be made on the electronic document DICTATION DATE: 11/23/18732 FLEET MANAGER: JAMI 11/23/1833 RPT#: [id number] DC DATE:11/22/18 STATUS: DIS IN [facility] [address] [place] [address] END OF REPORT
[2018-11-23 08:15] LABS: FUNGUS MYCOLOGY CULTURE Final report (())
== END 2018-11-22 23:05 | disposition home health service (06) | DRG 820 ==
LOC: D.ER 16:54 → D.M2 18:18 → D.MS 18:18 → D.ICU 18:18 → D.EDHOLD 18:18 → D.MS 18:31 → D.ICU 10-24 20:38 → D.M2 11-15 02:43
PROVIDERS: Emergency Medicine; Internal Medicine Hematology & Oncology; Internal Medicine Nephrology; Internal Medicine Pulmonary Disease; Radiology Diagnostic Radiology; Student in an Organized Health Care Education/Training Program; ADMIT Family Medicine; ATTEND Family Medicine
PROC: 07DR3ZX Extraction of Iliac Bone Marrow, Percutaneous Approach, Diagnostic (ICD-10-PCS; principal; 2018-10-19 13:24)
PROC: 5A1955Z Respiratory Ventilation, Greater than 96 Consecutive Hours (ICD-10-PCS; 2018-10-24)
PROC: 0BH17EZ Insertion of Endotracheal Airway into Trachea, Via Natural or Artificial Opening (ICD-10-PCS; 2018-10-24)
PROC: 0B978ZZ Drainage of Left Main Bronchus, Via Natural or Artificial Opening Endoscopic (ICD-10-PCS; 2018-10-26)
PROC: 0B938ZZ Drainage of Right Main Bronchus, Via Natural or Artificial Opening Endoscopic (ICD-10-PCS; 2018-10-26)
PROC: 05HM33Z Insertion of Infusion Device into Right Internal Jugular Vein, Percutaneous Approach (ICD-10-PCS; 2018-10-27)
PROC: 03HY32Z Insertion of Monitoring Device into Upper Artery, Percutaneous Approach (ICD-10-PCS; 2018-10-27)
PROC: 4A133B1 Monitoring of Arterial Pressure, Peripheral, Percutaneous Approach (ICD-10-PCS; 2018-10-27)
PROC: 4A133J1 Monitoring of Arterial Pulse, Peripheral, Percutaneous Approach (ICD-10-PCS; 2018-10-27)
PROC: 00C43ZZ Extirpation of Matter from Intracranial Subdural Space, Percutaneous Approach (ICD-10-PCS; 2018-10-28)
PROC: 0B928ZZ Drainage of Carina, Via Natural or Artificial Opening Endoscopic (ICD-10-PCS; 2018-11-01)
PROC: 0B948ZZ Drainage of Right Upper Lobe Bronchus, Via Natural or Artificial Opening Endoscopic (ICD-10-PCS; 2018-11-01)
PROC: 0B988ZZ Drainage of Left Upper Lobe Bronchus, Via Natural or Artificial Opening Endoscopic (ICD-10-PCS; 2018-11-01)
PROC: 0B918ZZ Drainage of Trachea, Via Natural or Artificial Opening Endoscopic (ICD-10-PCS; 2018-11-01)
PROC: 0B968ZZ Drainage of Right Lower Lobe Bronchus, Via Natural or Artificial Opening Endoscopic (ICD-10-PCS; 2018-11-01)
PROC: 0B9B8ZZ Drainage of Left Lower Lobe Bronchus, Via Natural or Artificial Opening Endoscopic (ICD-10-PCS; 2018-11-01)
PROC: 0B978ZZ Drainage of Left Main Bronchus, Via Natural or Artificial Opening Endoscopic (ICD-10-PCS; 2018-11-01)
PROC: 0B938ZZ Drainage of Right Main Bronchus, Via Natural or Artificial Opening Endoscopic (ICD-10-PCS; 2018-11-01)
PROC: 05HM33Z Insertion of Infusion Device into Right Internal Jugular Vein, Percutaneous Approach (ICD-10-PCS; 2018-11-05)
DX: C91.10 Chronic lymphocytic leukemia of B-cell type not having achieved remission (principal); A41.9 Sepsis, unspecified organism; J96.02 Acute respiratory failure with hypercapnia; J96.01 Acute respiratory failure with hypoxia; I46.9 Cardiac arrest, cause unspecified; N17.0 Acute kidney failure with tubular necrosis; J69.0 Pneumonitis due to inhalation of food and vomit; R65.21 Severe sepsis with septic shock; J15.6 Pneumonia due to other Gram-negative bacteria; I62.03 Nontraumatic chronic subdural hemorrhage; E43 Unspecified severe protein-calorie malnutrition; N39.0 Urinary tract infection, site not specified; I82.411 Acute embolism and thrombosis of right femoral vein; L03.115 Cellulitis of right lower limb; E87.1 Hypo-osmolality and hyponatremia; D68.59 Other primary thrombophilia; D62 Acute posthemorrhagic anemia; T17.890A Other foreign object in other parts of respiratory tract causing asphyxiation, initial encounter; I50.30 Unspecified diastolic (congestive) heart failure; Z66 Do not resuscitate; D70.9 Neutropenia, unspecified; R50.81 Fever presenting with conditions classified elsewhere; D69.6 Thrombocytopenia, unspecified; E66.01 Morbid (severe) obesity due to excess calories; R04.0 Epistaxis; E87.5 Hyperkalemia; K12.1 Other forms of stomatitis; J04.10 Acute tracheitis without obstruction; D64.9 Anemia, unspecified